=== PATIENT | female | born 1965 | race Caucasian/White ===

== ENCOUNTER 2018-05-25 05:40 | Day surgery (SDC) | payer BC, SELFPAY ==
[2018-05-17 08:56] VITALS: BP 115/80; PULSE 71; RESP 17; TEMP 36.8; O2SAT 98; BMI 40.7
--- NOTE | 2018-05-17 09:15 | SDCEKG_ITS ---
Test Reason : Blood Pressure : / mmHG Vent. Rate : 069 BPM Atrial Rate : 069 BPM P-R Int : 178 ms QRS Dur : 080 ms QT Int : 380 ms P-R-T Axes : 002 -06 014 degrees QTc Int : 407 ms Normal sinus rhythm Normal ECG Confirmed by MATT RODRIGUEZ MD ([id number]), editor dictionary ADI OCHOA ([id number]) on 05/22/2018 2:24:11 PM Referred By: Wesley Valdez Confirmed By:MATT RODRIGUEZ MD
[2018-05-17 09:47] LABS: Hematocrit 42.5 % (37-47); Mean Corp Hgb Conc 32.9 g/gl (32-36); Mean Corpuscular Hgb 29.9 pg (27.0-32.0); Mean Corpuscular Volume 90.6 fL (81-99); Mean Platelet Vol. 10.4 fl (6.2-12.0); Platelet Count 171 K/mm3 (150-450); RBC Distribution Width CV 12.6 % (11.6-14.6); RBC Distribution Width SD 41.7 fl (35.1-43.9); Red Blood Count 4.69 M/mm3 (4.2-5.4); White Blood Count 5.5 K/mm3 (4.4-11.0)
[2018-05-17 09:51] LABS: Scan Indicated on CBC? Y/N NO
[2018-05-17 10:08] LABS: Anion Gap 8 (5-15); BUN 14 mg/dL (7-18); BUN/Creat Ratio 16.9 RATIO (10-20); Calcium,Total 8.5 mg/dL (8.5-10.1); Chloride 105 mmol/L (98-107); Creatinine, Serum 0.83 mg/dL (0.55-1.02); EST Glomerular Filtration Rate 77 mL/min (>60); Est Glom Filt Rate - Afr Amer 93 mL/min (>60); Estimated Creatinine Clearance 85.74 ml/min; Glucose 102 mg/dL (74-106); Potassium 3.9 mmol/L (3.5-5.1); Sodium Level 139 mmol/L (136-145)
--- NOTE | 2018-05-23 12:43 | PCM.HP.STD ---
Problem List (1) Chronic venous insufficiency Status: Chronic (2) Varicose veins with inflammation Status: Chronic (3) Leg pain Status: Chronic Qualifiers: Laterality: left Qualified Code(s): M79.605 - Pain in left leg (4) Leg swelling Status: Chronic History of Present Illness Date of Admission: 05/25/18 Chief Complaint: Chronic venous insufficiency, varicose veins with inflammation, leg pain, leg swelling?left lower extremity The patient is a 52 year old F with a long-standing history of chronic venous insufficiency, varicose veins with inflammation, leg pain, and leg swelling involving her left lower extremity. For approximately 20 years, the patient has experienced pain, discomfort, soreness, and aching in her left lower extremity. Her symptoms have become progressively worse. Venous duplex examination has been performed, revealing incompetence of the left great saphenous vein, the left small saphenous vein, and the left accessory saphenous vein at the S2 position. The implications of this diagnosis were discussed with the patient in detail. The options of management were fully explained. Conservative treatment measures were implemented, which included leg elevation, avoidance of idle standing and sitting, graduated compression stockings, weight control measures, active lifestyle, rphl-cyx-ooyxsor analgesics, etc. Despite these measures, the patient remained symptomatic, with symptoms which adversely affect her daily activities, quality of life, and job functions. [] Past Medical History Past Medical History (Chronic Problems): Chronic Problems Chronic venous insufficiency (Chronic) Varicose veins with inflammation (Chronic) Leg pain (Chronic) Leg swelling (Chronic) Allergies No Known Allergies Allergy (Verified 05/17/18 08:54) Home Medications: Ambulatory Orders Medication Instructions Recorded Famotidine/Ca Carb/Mag Hydrox 1 each PO PRN PRN 05/17/18 [Pepcid Complete Tablet Chew] Levothyroxine [Synthroid] 100 mcg PO DAILY 05/17/18 Surgical History: - - Open reduction and internal fixation of a right ankle fracture in 1985 Psychiatric History: No pertinent psych hx [employer] History: - - The patient is a [id number] Smoking Status: Former smoker Alcohol: Occasional Drugs: None Review of Systems Constitutional: Denies: Chills, Fever, Weight Change HEENT: Denies: Head Aches, Sinus Congestion, Sinus Drainage Cardiovascular: Denies: Chest Pain, Palpitations Respiratory: Denies: Cough, Shortness of breath at rest, Sputum production Gastrointestinal: Denies: Abdominal Pain, Nausea, Vomiting Genitourinary: Denies: Dysuria Musculoskeletal: Denies: Joint Pain, Joint Tenderness Skin: Denies: Rash, Wounds Neurological: Denies: Numbness, Tingling, Focal weakness Psychiatric: Denies: Anxiety, Depression, Homicidal Ideations, Suicidal Ideations Hematologic/ Lymphatic: Denies: Easy Bruising, Easy Bleeding VTE Information - Inpt Only VTE Present on Admission: No VTE Mechan Device Prophylaxis: SCD's - Right VTE Pharm Prophylaxis ordered?: Yes - Physical Exam General: Alert, Oriented x3, Cooperative, No apparent distress, Well developed, Well nourished HEENT: Atraumatic, PERRLA, EOMI, Normocephalic Oral: Moist Mucosa, No Gingival or Mucosal Lesions/ Ulcerations Neck: Supple, No JVD, Negative Carotid Bruits, No Nodes, No Nuchal Rigidity, Trachea Midline Lungs: Clear to auscultation, Normal air movement, No rhonchi, No wheeze, No rales Cardiovascular: Regular rate, Regular Rhythm, Normal S1, Normal S2, No murmurs Abdomen: Bowel Sounds Present, Soft, Non Tender Extremities: No clubbing, No cyanosis, No edema, Capillary Refill Less than 3 Seconds, No Calf Tenderness, - - Peripheral extremities are warm and well perfused. Multiple large varicosities are noted on the left medial calf. Skin: No rashes, No breakdown Musculoskeletal: No Tenderness to Palpation of Joints or Extremities, No Muscle Wasting Neurological: Cranial nerves II-XII grossly intact, Neuro grossly intact Psych/Mental Status: Normal Affect, Appropriate, Alert and oriented to time, place, person, mood and affect Vital Signs Temp Pulse Resp BP Pulse Ox 98.3 F 71 17 115/80 98 05/17/18 08:56 05/17/18 08:56 05/17/18 08:56 05/17/18 08:56 05/17/18 08:56 Oxygen Delivery Method Room Air Weight: 283 lb 11.759 oz Body Mass Index (BMI) 40.7 Assessment/Plan Impression: This is a 52-year-old female with a long-standing history of chronic venous insufficiency, varicose veins with inflammation, leg pain, and leg swelling involving her left lower extremity. Despite the implementation of conservative treatment measures, the patient has remained symptomatic, with symptoms which have adversely affected her daily activities, quality of life, and job functions. The indications and risks of endovenous laser ablation of the left great saphenous vein, the left small saphenous vein, and the left accessory saphenous vein at the S2 position have been discussed with the patient in detail. Plan: The patient is to be admitted for the purpose of elective endovenous laser ablation of the left great saphenous vein, the left small saphenous vein, and the left accessory saphenous vein at the S2 position. The indications and risks of the procedure have been discussed with patient in detail. The appropriate preprocedure consent process has been undertaken.
[2018-05-25] VITALS (7 sets, daily range): BP systolic 118–148; BP diastolic 68–86; PULSE 62–88; RESP 14–18; TEMP 35.7–36.4; O2SAT 92–100; BMI 40.7
[2018-05-25] MEDS: Enoxaparin 30 MG/0.3 ML Syringe SC (06:11)
[2018-05-25] MEDS: Cefazolin 2 GM in 0.9% Normal Saline 100 ML IV (07:26)
--- NOTE | 2018-05-25 10:00 | PCM.DCVENO ---
Discharge Diet: No Restrictions Discharge Activity: May Not Drive Return to work on:: 05/30/18 May shower in (days): 2 Weight Bearing Status: Weight bearing as tolerated Lifting Restrictions: 10 pounds Keep extremity elevated above heart level: Left Leg Call your doctor if you observe: Shortness of breath, Fainting spells, Chest pain, Prolonged hiccoughing, Increased palpitations (irregular heartbeat), Uncontrolled pain Suture Line Care: Avoid Pulling/Pushing Change Dressing in (Days):: 2 Remove Dressing in (days):: 2 - then rewrap daily from base of toes to upper thigh Allergies/Adverse Reactions: Allergies No Known Allergies Allergy (Verified 05/17/18 08:54) Medications to take at Discharge Famotidine/Ca Carb/Mag Hydrox [Pepcid Complete Tablet Chew] 1 each PO PRN PRN 05/17/18 Levothyroxine [Synthroid] 100 mcg PO DAILY 05/17/18 Primary Care Physician: Connor Cueva MD [Primary Care Provider] - Test Results: Test results from this visit will be discussed in further detail at your follow-up appointment, if applicable. Please Follow Up With: Wesley Valdez MD When: 7-14 days
--- NOTE | 2018-05-25 10:03 | DCINST_ITS ---
Discharge Diet: No Restrictions Discharge Activity: May Not Drive Return to work on:: 05/30/18 May shower in (days): 2 Weight Bearing Status: Weight bearing as tolerated Lifting Restrictions: 10 pounds Keep extremity elevated above heart level: Left Leg Call your doctor if you observe: Shortness of breath, Fainting spells, Chest pain, Prolonged hiccoughing, Increased palpitations (irregular heartbeat), Uncontrolled pain Suture Line Care: Avoid Pulling/Pushing Change Dressing in (Days):: 2 Remove Dressing in (days):: 2 - then rewrap daily from base of toes to upper thigh Allergies/Adverse Reactions: Allergies No Known Allergies Allergy (Verified 05/17/18 08:54) Medications to take at Discharge Famotidine/Ca Carb/Mag Hydrox [Pepcid Complete Tablet Chew] 1 each PO PRN PRN 05/17/18 Levothyroxine [Synthroid] 100 mcg PO DAILY 05/17/18 Primary Care Physician: Connor Cueva MD [Primary Care Provider] - Test Results: Test results from this visit will be discussed in further detail at your follow- up appointment, if applicable. Please Follow Up With: Wesley Valdez MD When: 7-14 days
--- NOTE | 2018-05-25 10:03 | PCM.IMDPSTOP ---
Problem List (1) Chronic venous insufficiency Status: Chronic (2) Varicose veins with inflammation Status: Chronic (3) Leg pain Status: Chronic Qualifiers: Laterality: left Qualified Code(s): M79.605 - Pain in left leg (4) Leg swelling Status: Chronic Immediate Post-Op Note Date of Procedure: 05/25/18 Primary Surgeon/Physician: Wesley Valdez carbide tool maker: None Pre-Operative Diagnosis: Chronic venous insufficiency, Varicose veins with inflammation, Leg pain, Leg swelling - Left lower extremity Post-Operative Diagnosis: Chronic venous insufficiency, Varicose veins with inflammation, Leg pain, Leg swelling - Left lower extremity Surgery/Procedure Performed:: 1. EVLA of left great saphenous vein. 2. EVLA of left small saphenous vein. 3. EVLA of left accessory saphenous vein (S2) Description of Surgical Findings:: As above Estimated Blood Loss: Minimal Specimen's removed: None Drains: None Type of Anesthesia:: General, Tumescent - Admit VTE Documentation VTE Present on Admission: No VTE Mechan Device Prophylaxis: SCD's - Right VTE Pharm Prophylaxis ordered?: Yes
--- NOTE | 2018-05-25 10:08 | OP.PN_ITS ---
Problem List (1) Chronic venous insufficiency Status: Chronic (2) Varicose veins with inflammation Status: Chronic (3) Leg pain Status: Chronic Qualifiers: Laterality: left Qualified Code(s): M79.605 - Pain in left leg (4) Leg swelling Status: Chronic Immediate Post-Op Note Date of Procedure: 05/25/18 Primary Surgeon/Physician: Wesley Valdez label remover: None Pre-Operative Diagnosis: Chronic venous insufficiency, Varicose veins with inflammation, Leg pain, Leg swelling - Left lower extremity Post-Operative Diagnosis: Chronic venous insufficiency, Varicose veins with inflammation, Leg pain, Leg swelling - Left lower extremity Surgery/Procedure Performed:: 1. EVLA of left great saphenous vein. 2. EVLA of left small saphenous vein. 3. EVLA of left accessory saphenous vein (S2) Description of Surgical Findings:: As above Estimated Blood Loss: Minimal Specimen's removed: None Drains: None Type of Anesthesia:: General, Tumescent - Admit VTE Documentation VTE Present on Admission: No VTE Mechan Device Prophylaxis: SCD's - Right VTE Pharm Prophylaxis ordered?: Yes
--- NOTE | 2018-05-29 08:10 | PCM.OPRPT ---
Problem List (1) Chronic venous insufficiency Status: Chronic (2) Varicose veins with inflammation Status: Chronic (3) Leg pain Status: Chronic Qualifiers: Laterality: left Qualified Code(s): M79.605 - Pain in left leg (4) Leg swelling Status: Chronic Report of Operation Date of Procedure: 05/25/18 Pre-Operative Diagnosis: Chronic venous insufficiency, Varicose veins with inflammation, Leg pain, Leg swelling - Left lower extremity Post-Operative Diagnosis: Chronic venous insufficiency, Varicose veins with inflammation, Leg pain, Leg swelling - Left lower extremity Surgery/Procedure Performed:: 1. EVLA of left great saphenous vein. 2. EVLA of left small saphenous vein. 3. EVLA of left accessory saphenous vein (S2) Description of Surgical Findings:: As above carbide tool die maker: None Type of Anesthesia:: General, Tumescent Specimen's removed: None Drains: None Estimated Blood Loss (mL): Minimal Description of Procedure: The patient underwent ultrasound marking of the left great saphenous vein, the left small saphenous vein, and the left accessory saphenous vein at the S2 position. She was then brought to the operating room suite, placed supine upon the operating table, where general anesthesia was administered by the anesthesia staff. The patient's left lower extremity and left groin were prepped and draped in the appropriate sterile manner. The patient was placed in reverse Trendelenburg position. Ultrasonography was used to image the left great saphenous vein in the distal calf. The micropuncture technique was used to access the left great saphenous vein percutaneously in the distal calf. In this manner, a 0.018 inch guidewire was advanced intraluminally into the left great saphenous vein, and was visualized by ultrasonography. A micropuncture sheath was advanced over the guidewire. The 0.018 inch guidewire was exchanged for a 0.035 inch guidewire, which was then advanced intraluminally to a level just distal to the left sapheno?femoral junction, as confirmed by ultrasound imaging. A long 4 Nigerian sheath was then advanced over the guidewire, and its tip was positioned approximately 2-2-1/2 cm distal to the left sapheno?femoral junction. Attention was then directed to the incompetent left small saphenous vein. To enhance exposure, the left lower extremity was placed in an externally rotated position with the left knee flexed. Using ultrasound imaging and the micropuncture technique, the micropuncture sheath was introduced intraluminally into the left small saphenous vein near the inferior border of the left gastrocnemius muscle, and was left in place, capped, for subsequent access purposes. Attention was then directed to the incompetent left accessory saphenous vein at the S2 position. Using ultrasound imaging and the micropuncture technique, a micropuncture sheath was introduced intraluminally, and was left in place, capped, for subsequent access purposes. Attention was then redirected to the long 4 Nigerian sheath which had been previously placed intraluminally within the left great saphenous vein. Perivenous tumescent anesthesia was injected from the 4 Nigerian sheath exit site up to the left sapheno?femoral junction. This was performed segmentally using ultrasound imaging. The AngioDynamics laser fiber was then introduced into the 4 Nigerian sheath, and coupled appropriately. Ultrasonography was used to confirm that the tip of the laser fiber was positioned within the left great saphenous vein approximately 2-2-1/2 cm distal to the left sapheno?femoral junction. The patient was placed in Trendelenburg position and the laser fiber was activated. The AngioDynamics laser was slowly withdrawn at a constant rate throughout the length of the left great saphenous vein, thereby ablating left great saphenous vein segmentally. The energy applied was approximately 60-80 J/cm. Following the laser ablation, the laser fiber and sheath were removed, and manual pressure was briefly applied to the percutaneous access site to achieve hemostasis. Attention was then directed to the micropuncture sheath which had been previously placed intraluminally within the left small saphenous vein. A 0.035 inch guidewire was introduced intraluminally and its tip was positioned within the proximal portion of the left small saphenous vein. The long 4 Nigerian sheath was then advanced over the guidewire and into position intraluminally within the left small saphenous vein. Perivenous tumescent anesthesia was injected from the 4 Nigerian sheath access site up to the tip of the sheath in the proximal left small saphenous vein. This was performed segmentally using ultrasound imaging. The AngioDynamics laser fiber was then introduced into the 4 Nigerian sheath, and coupled appropriately. Ultrasonography was used to confirm that the tip of the laser fiber was positioned within the proximal left small saphenous vein, several centimeters distal to its junction with the deep venous system, and remaining within the superficial portion of the left small saphenous vein. The patient was placed in Trendelenburg position and the laser fiber was activated. The AngioDynamics laser was slowly withdrawn at a constant rate throughout the length of the left small saphenous vein, thereby ablating left small saphenous vein segmentally. The energy applied was approximately 60-80 J/cm. Following the laser ablation, the laser fiber and sheath were removed, and manual pressure was briefly applied to the percutaneous access site to achieve hemostasis. Attention was then directed to the micropuncture sheath which had been previously placed intraluminally within the incompetent left accessory saphenous vein. A 0.035 inch guidewire was introduced intraluminally, over which the long 4 Nigerian sheath was advanced and positioned intraluminally. Perivenous tumescent anesthesia was injected from the 4 Nigerian sheath exit site up to the tip of the sheath within the proximal left accessory saphenous vein. This was performed segmentally using ultrasound imaging. The AngioDynamics laser fiber was then introduced into the 4 Nigerian sheath and coupled appropriately. Ultrasonography was used to confirm that the tip of the laser fiber was positioned within the left accessory saphenous vein with its tip abutting the previously ablated left great saphenous vein. The patient was placed in Trendelenburg position and the laser fiber was activated. The AngioDynamics laser was slowly withdrawn at a constant rate throughout the length of the left accessory saphenous vein, thereby ablating the left accessory saphenous vein segmentally. The energy applied was approximately 60-80 J/cm. Following the laser ablation, the laser fiber and sheath were removed, and manual pressure was briefly applied to the percutaneous access site to achieve hemostasis. After assuring satisfactory hemostasis, the access sites were approximated using Cavilon and Steri-Strips. Dry sterile gauze dressings were applied over each of the access sites, and the leg was wrapped from the base of the toes to the upper thigh with Kerlix, followed by Alex wrap. The blood loss for the procedure was minimal. The sponge, needle, and instrument counts at the end of the procedure were correct. The patient tolerated the procedure well, and was transported from the operating room to the post-anesthesia care unit in stable condition. The amount of tumescent anesthesia utilized, number of joules applied, and treatment times were recorded separately. Additionally, because of the patient's obesity, and the large size of her lower extremity veins, slightly enhanced laser energy was utilized in ablating the 3 veins of the left lower extremity. - Complications None - Admit VTE Documentation VTE Present on Admission: No VTE Mechan Device Prophylaxis: SCD's - Right VTE Pharm Prophylaxis ordered?: Yes
--- OUTSIDE RECORDS SUMMARY | 2018-07-11 00:12 | XMS RPT_ITS | Clinical Summary ---
:1965 Author Organization [facility], [facility] Address [address] [place] [id number] Phone Care Team Providers Name Role Phone Connor Cueva MD Unavailable Conditions or Problems Problem Name Problem Onset Status Entry Provider Comment Standard Annotate Code Date Date Description Intertrigo, 690333245 Active Connor Candidal candidal (SNOMED 07/02 07/[address]) Hypothyroidism [id number] Active Connor Hypothyroidism (SNOMED 07/02 07/[address]) Medications Medication Instructions Start Stop Generic Name [facility] Provider Date Date LEVOTHYROXINE One tablet by / LEVOTHYROXINE 30289044853 Connor Rendon SODIUM 100 MCG mouth daily 20 SODIUM Hammad KENNY TABS CLOTRIMAZOLE-BET apply sparingly / CLOTRIMAZOLE-BET [id number] Connor Rendon AMETHASONE to affected 20 AMETHASONE Hammad KENNY 1-0.05 % CREA area twice a day, as needed Medications Administered No information available. Allergies, Adverse Reactions, Alerts Observed No Known Drug Allergies at Results Date Name Value Unit Range Flag Description Office Visit: New Pt. Visit MEDS REVIEW Done Documentation of current medications (procedure) FALLRSKASSES No Fall risk assessment SMOK STATUS Former smoker Tobacco use [facility] Plan of Care Type Date Detail Pending order Follow Up as needed Pending order Follow Up Appt 1 year Procedures No information available. Vital Signs Date Name Value Unit Description BMI (Body Mass Index) 0.61 kg/m2 Body Mass Index [Ratio] Body Temperature 97.8 [degF] temperature E&M BP Diastolic 82 mm[Hg] blood pressure, diastolic - 8462-4 BP Systolic 128 mm[Hg] blood pressure, systolic - 8480-6 Heart Rate 74 /min pulse rate E&M - 8867-4 Height 284 [in_us] height E&M - 8302-2 Respiratory Rate 16 /min respiratory rate E&M - 9279-1 Weight Measured 70 [lb_av] weight E&M - 3141-9
--- OUTSIDE RECORDS SUMMARY | 2018-07-11 00:12 | XMS RPT_ITS | Clinical Summary ---
:1965 Author Organization [facility], [facility] Address [address] [place] [id number] Phone Care Team Providers Name Role Phone Connor Cueva MD Unavailable Conditions or Problems Problem Name Problem Onset Status Entry Provider Comment Standard Annotate Code Date Date Description Intertrigo, 744862188 Active Connor Candidal candidal (SNOMED 07/02 07/[address]) Hypothyroidism 40827314 Active Connor Hypothyroidism (SNOMED 07/02 07/[address]) Medications Medication Instructions Start Stop Generic Name [facility] Provider Date Date LEVOTHYROXINE One tablet by / LEVOTHYROXINE [id number] Connor Rendon SODIUM 100 MCG mouth daily 20 SODIUM Hammad KENNY TABS CLOTRIMAZOLE-BET apply sparingly / CLOTRIMAZOLE-BET [id number] Connor Rendon AMETHASONE to affected 20 AMETHASONE [...] assessment SMOK STATUS Former smoker Tobacco use [facility] Plan of Care Type Date Detail [...]
--- OUTSIDE RECORDS SUMMARY | 2018-07-11 00:12 | XMS RPT_ITS ---
:1965 Author Organization OHIP Support Name Relationship Address Phone MARTIN BETO Unavailable [address] + [place] [address] POSTEN, SALVATORE Unavailable [address] + [place] [address] WOOBR Unavailable [address] + [address] [place] [address] BETO SALAZAR Unavailable [address] + [place] [address] POSTEN, SALVATORE Unavailable [address] + [place] [address] WOOBR Unavailable [address] + [address] [place] [address] BETO SALAZAR Unavailable [address] + [place] [address] POSTEN, SALVATORE Unavailable [address] + [place] [address] WOOBR Unavailable [address] + [address] [place] [address] BETO SALAZAR Unavailable [address] + [place] [address] POSTEN, SALVATORE Unavailable [address] + [place] [address] WOOBR Unavailable [address] + [address] [place] [address] BETO SALAZAR Unavailable [address] + [place] [address] POSTEN, SALVATORE Unavailable [address] + [place] [address] WOOBR Unavailable [address] [place] [address] Care Team Providers Name Role Phone KevinmiguelJerad Attending Unavailable Oleghe, Efewongbe Primary Care Unavailable Sarthak Rodriguez Attending Unavailable Wesley Valdez Referring Unavailable BañuelosJorge EXHAUST WORKER-C Attending Unavailable Oleadame, Efewongbe Referring Unavailable Bañuelos, Jorge EXHAUST WORKER-C Attending Unavailable Bañuelos, Jorge EXHAUST WORKER-C Referring Unavailable Oleghe, Efewongbe Primary Care Unavailable Wesley Valdez Attending Unavailable Wesley Valdez Referring Unavailable Oleghe, Efewongbe Primary Care Unavailable PROBLEMS PROBLEMS DATE TYPE CONDITION / CODE ATTENDING STATUS SOURCE 06/07/2018 Unknown E03.9 - Bañuelos, Jorge Active [place] Hypothyroidism, EXHAUST WORKER-C Community unspecified / Hospital E03.9(ICD-10) Repository 06/07/2018 Unknown R31.9 - Hematuria, Bañuelos, Jorge Active [place] unspecified / EXHAUST WORKER-C Community R31.9(ICD-10) Hospital Repository 06/07/2018 Unknown R40.0 - Somnolence / Bañuelos, Jorge Active [place] R40.0(ICD-10) [facility] Hospital Repository 06/07/2018 Unknown R06.83 - Snoring / Bañuelos, Jorge Active [place] R06.83(ICD-10) [facility] WORK[facility] Hospital Repository 06/07/2018 Unknown E78.5 - Bañuelos, Jorge Active [place] Hyperlipidemia, EXHAUST WORKER-C Community unspecified / Hospital E78.5(ICD-10) Repository 06/07/2018 Unknown Z00.00 - Encounter Jorge Bañuelos Active [place] for general adult EXHAUST WORKER-C [facility] medical examination Hospital without abnormal Repository findings / Z00.00(ICD-10) 05/26/2018 Unknown Z01.810 - Encounter EstherHolland beasleyril Active [place] for [facility]cedural [facility] cardiovascular Hospital examination / Repository Z01.810(ICD-10) PROCEDURES PROCEDURES No Procedure Records FoundRESULTS RESULTS URINALYSIS, COMPLETE Collected: 06/07/2018 Status: F Source: [place] 12:42 PM [facility] REPOSITORY Order Comment: How was Urine Obtained? WRECKER DRIVER TO SPECIFY TYPE CODE TESTS RESULT OUT OF RANGE REFERENCE UNITS LAB L400.3000 Yellow COLOR Normal Yellow LAB L400.3050 Clear Normal CLARITY Clear LAB L400.3200 Normal mg/dl Normal GLUCOSE, UR Normal LAB L400.3300 Negative mg/dL Normal BILIRUBIN URINE Negative LAB L400.3400 Negative mg/dl Normal KETONE UR Negative LAB L400.3465 1.002-1.030 Normal SP.GR. DIPSTX 1.015 LAB L400.3550 5.0 - 8.0 pH UR Normal 6.0 LAB L400.3600 Negative mg/dl PROT Normal DIPSTX Negative LAB L400.3700 Normal mg/dl Normal UROBILI Normal LAB L400.3750 Negative Normal NITRITE UR Negative LAB L400.3780 Negative /ul Normal OCCULT BLOOD-UR Negative LAB L400.3800 Negative /ul LEUK Normal ESTERASE Negative LAB L400.4050 0-5 /hpf WBC 0 Normal SEEN LAB L400.4100 0-5 /hpf 0 Normal RBC-UA SEEN LAB L400.4150 5-10 /hpf SQUAM Normal EPI 0-5 SEEN LAB L400.4300 None Seen /hpf 0 Normal BACTERIA SEEN LAB L400.4350 <or=2+ /hpf 0 Normal MUCUS, URINE SEEN Performed By: #### L400.0001 #### [facility] [address] [place], [address] Observed: 06/07/2018 Status: F Source: [place] CULTURE, URINE 12:42 PM [facility] REPOSITORY Urine Culture Below infection level. ORGANISM 1: Mixed Gram Positive Organisms [place] Count 1000-10,000 MIX CULTURE Mixed contaminants. Submit a new specimen if indicated. Performed By: #### M100.0650 #### [facility] [address] [place], [address] INTERNAL MEDICINE Observed: 06/07/2018 Status: F Source: [place] OFFICE VISIT 11:26 AM [facility] REPOSITORY [facility] [address] [place] [address] [place] [address] OFFICE VISIT Date of Service: 06/07/18 MR#: [id number] Acct: [id number] Name: CONNER LIM Rep #: [id number] : 1965 Provider: Jorge Bañuelos NP Age/Sex: 52/F Location: [facility] Status: Signed Intake Vital Signs06/07/18 Body Mass Index (BMI) 40.7 06/07/18 Height 5 ft 10 in 06/07/18 Weight: 280 lb 06/07/18 Body Mass Index (BMI) 40.1 06/07/18 Blood Pressure 108/70 Intake Visit Reasons: 1 Y FU Chief Complaint: 1 Year FU Allergies No Known Allergies Allergy (Verified 06/07/18 10:30) Medications Famotidine/Ca Carb/Mag Hydrox [Pepcid Complete Tablet Chew] 1 ea PO PRN PRN 05/17/18 [History Confirmed 06/07/18] clotrimazole 1 %-betamethasone 0.05 % cream-zinc ox 20 % paste topical pkg TOPICAL g 06/07/18 [History Confirmed 06/07/18] levothyroxine 100 mcg tablet 100 mcg PO DAILY #90 tab 06/07/18 [Rx Confirmed 06/07/18] PFSH Medical History Hypothyroid (Acute) Surgical History History of vascular surgery (Acute) Family History Father Heart disease Skin cancer Grandfather CVA (cerebral vascular accident) Grandmother Cancer Social History Smoking Status: Former smoker how long ago did patient quit smokin alcohol intake: current alcohol intake frequency: holidays/special occasions only Alcohol type: beer substance use type: does not use what type of physical activity do you participate in: none HPI HPI Chief Complaint: 1 Year FU Details: CONNER LIM, is a 52 F who presents to the office today for her annual physical, however she has some acute complaints as well. She has a past medical history as listed above. Patient states that overall she has been doing well. She states that she recently had sclerotherapy on her left lower extremity and that is currently in compression. She does have an acute complaint of excessive daytime somnolence and notes that over the last 3 days she has noticed some blood in her urine and wonders if she may have a UTI. She denies any postmenopausal vaginal bleeding. She denies any other signs of UTI at this time. She does note regarding her hypothyroidism, she is out of her medication for a couple months and just resumed her levothyroxine 1 week ago. She denies any use of tobacco or heavy use of alcohol. She does state that she will make a appointment with her CLINICAL INFORMATICIST for her Pap. Denies any other acute concerns. The patient otherwise denies any fever, chills, nausea, vomiting, shortness of breath, chest pain or pressure, palpitations, orthopnea, worsening lower extremity edema, syncope or presyncopal episodes. STOP-BANG Assessment: 1. Do you snore? y 2. Are you frequently tired during the day? y 3. Have you been observed gasping or choking while asleep? y 4. Do you have high blood pressure? n 5. BMI - greater than 35kg/m2? y 6. Age - over 50 years old? y 7. Neck Circumference - greater than 37 cm for females or 40 cm for males? y, 41 cm 8. Gender - male? n Total STOP-BANG score = 6 which indicates high risk for obstructive sleep apnea (yes to 3 or more questions = high risk of sleep apnea). ROS Const Constitutional: No chills, fatigue, fever(s), frequent falls, malaise, weakness, sleep problems or change in appetite Eyes Eyes: No blurry vision, change in vision, double vision, discharge or visual disturbances ENT ENT: No abnormal hearing, ear pain, ear pressure, tinnitus or dizziness/vertigo Resp Respiratory: No cough, shortness of breath or wheezing Cardio Cardiology: No chest pain at rest, chest pain with exertion, shortness of breath, dyspnea on exertion, generalized swelling, irregular heart rhythm, lightheadedness, orthopnea, fast heart rate or palpitations Gastro GI: No abdominal pain, change in bowel habits, constipation, diarrhea, nausea/dyspepsia or vomiting Genitourinary-Female: No difficulty urinating, burning urination, painful urination, urinary incontinence, urinary frequency, urinary urgency, urinary hesitancy, urinary retention, Frequent nighttime urination/ nocturia, sexual problems, genital lesions, abnormal vaginal bleeding, pelvic pain, vaginal dryness, vaginal odor or Vaginal Itching Musc Musculoskeletal: No joint pain, back pain, joint swelling, limited range of motion, numbness, tingling or muscle weakness Skin Skin: No change in skin color, itching, rash or wounds Breast Breast: No breast lump or breast pain Neuro Neurology: No frequent falls, weakness, visual disturbances, abnormal hearing, numbness, tingling, unsteady gait/balance, dizziness, loss of vision or memory loss Psych Psychiatric: No change in appetite, No memory loss, No anxiety, No depression, No Thoughts of harming yourself/Others Endo Endocrine: No fatigue, heat intolerance, increased thirst/drinking, increased hunger or increased urination Aller/Imm Allergy/Immunologic: No wheezing, itchy eyes or seasonal allergy symptoms Helio/Lymp Hematologic/Lymphatic: No easy bleeding, easy bruising or enlarged lymph nodes Exam Const General: cooperative, comfortable, no acute distress Nutritional Appearance: well nourished, obese Orientation: alert, oriented x3 Limitations: mental status not altered [facility] Head: normal to inspection Ears: hearing grossly normal bilaterally Nose: external nose normal Face and sinus: normal facial exam Mouth: oral mucosae normal Throat: posterior oropharynx normal, other (mallampati 3) Neck Neck: no lymphadenopathy, normal visual inspection, other (41 cm) Resp Effort AND Inspection: normal respiratory effort, able to speak in complete sentences, normal respiratory pattern, symmetric chest movement, no audible wheezes, no cough Auscultation: Bilateral: Clear to Auscultation Cardio Palpation: normal PMI Rate: regular rate Heart Sounds: S1 normal, S2 normal, normal S1 and S2, no click, no gallops, no murmurs, no rubs GI Inspection: normal to inspection Auscultation: normal bowel sounds, no hyperactive bowel sounds, no hypoactive bowel sounds Palpation: soft, no hepatosplenomegaly General: No CVA tenderness Musc Musculoskeletal: No joint tenderness, decreased ROM or muscle weakness Skin General: no rashes or lesions noted, elasticity normal, turgor normal Lesions: no lesions Rashes: no rashes Neuro General: alert, awake, oriented x3, CN's II-XI intact bilaterally Speech: speech normal Gait: normal gait Motor: muscle tone normal throughout Extrem General: normal to inspection, normal gait Other: left lower extremity in compression wrapping Psych Appearance: grossly normal Mental Status: mental status grossly normal Affect: normal affect Attitude: cooperative Thought Process: normal Assessment AND Plan 1. Encounter for preventative adult health care examination Z00.00 Plan Patient refuses influenza vaccine and shingles vaccine, she will follow-up with CLINICAL INFORMATICIST for her Pap. Mammogram ordered, patient to continue with diet exercise and avoidance of heavy alcohol use or tobacco abuse. We will recheck a lipid profile, baseline blood work recently done and within normal limits. Patient up-to-date on colonoscopy and per patient her next one is do in 2020 2. Hypothyroidism E03.9 Plan Patient has been off of her thyroid supplementation for approximately 3 months now and restarted 1 week ago, will recheck TSH and T4 after 6 weeks of treatment and then make adjustments if necessary. She has been more tired lately, may be due to her thyroid or due to undiagnosed AJ. Orders Orders: 3. Hematuria R31.9 Plan Patient does state that she has noted some blood in her urine over the last 3 days, denies any postmenopausal bleeding otherwise. Will check a UA and culture. Denies any other signs of UTI symptoms at this time. Denies any concern for STDs. Orders Orders: 4. Daytime somnolence R40.0 Plan Patient does have many symptoms that may be related to obstructive sleep apnea, her neck circumference is 41 cm and she snores and has been visualized gasping for air in her sleep before. Sleep study ordered. Patient to follow-up in 6 weeks or sooner if needed Orders Orders: Plan Detail Other Orders Orders: Other Medications New: Refilled: Follow Up 6 weeks or sooner if needed Coding Level of Care Code Off vis,est,prev 40-64yrs Diagnoses Encounter for preventative adult health care examination Z00.00 Hypothyroidism E03.9 Hematuria R31.9 Daytime somnolence R40.0 06/07/18 1126 <Electronically signed by Jorge STARKS> Date Jorge STARKS Cosigner Signature: Date (if applicable) CC: OPERATIVE REPORT Observed: 05/29/2018 Status: F Source: [place] 8:28 AM [facility] REPOSITORY [facility] Medical Records Department [address] [place] [address] Operative Report 05/29/18 0810 MR#: [id number] Acct: [id number] Name: CONNER LIM Rep #: [id number] : 1965 52 From: Wesley Valdez MD PCP: Connor Cueva MD Status: DEP [facility] Y Location: [facility] Problem List (1) Chronic venous insufficiency Status: Chronic (2) Varicose veins with inflammation Status: Chronic (3) Leg pain Status: Chronic Qualifiers: Laterality: left Qualified Code(s): M79.605 - Pain in left leg (4) Leg swelling Status: Chronic Report of Operation Date of Procedure: 05/25/18 Pre-Operative Diagnosis: Chronic venous insufficiency, Varicose veins with inflammation, Leg pain, Leg swelling - Left lower extremity Post-Operative Diagnosis: Chronic venous insufficiency, Varicose veins with inflammation, Leg pain, Leg swelling - Left lower extremity Surgery/Procedure Performed:: 1. EVLA of left great saphenous vein. 2. EVLA of left small saphenous vein. 3. EVLA of left accessory saphenous vein (S2) Description of Surgical Findings:: As above third hand: None Type of Anesthesia:: General, Tumescent Specimen's removed: None Drains: None Estimated Blood Loss (mL): Minimal Description of Procedure: The patient underwent ultrasound marking of the left great saphenous vein, the left small saphenous vein, and the left accessory saphenous vein at the S2 position. She was then brought to the operating room suite, placed supine upon the operating table, where general anesthesia was administered by the anesthesia staff. The patient's left lower extremity and left groin were prepped and draped in the appropriate sterile manner. The patient was placed in reverse Trendelenburg position. Ultrasonography was used to image the left great saphenous vein in the distal calf. The micropuncture technique was used to access the left great saphenous vein percutaneously in the distal calf. In this manner, a 0.018 inch guidewire was advanced intraluminally into the left great saphenous vein, and was visualized by ultrasonography. A micropuncture sheath was advanced over the guidewire. The 0.018 inch guidewire was exchanged for a 0.035 inch guidewire, which was then advanced intraluminally to a level just distal to the left sapheno femoral junction, as confirmed by ultrasound imaging. A long 4 Hungarian sheath was then advanced over the guidewire, and its tip was positioned approximately 2-2-1/2 cm distal to the left sapheno femoral junction. Attention was then directed to the incompetent left small saphenous vein. To enhance exposure, the left lower extremity was placed in an externally rotated position with the left knee flexed. Using ultrasound imaging and the micropuncture technique, the micropuncture sheath was introduced intraluminally into the left small saphenous vein near the inferior border of the left gastrocnemius muscle, and was left in place, capped, for subsequent access purposes. Attention was then directed to the incompetent left accessory saphenous vein at the S2 position. Using ultrasound imaging and the micropuncture technique, a micropuncture sheath was introduced intraluminally, and was left in place, capped, for subsequent access purposes. Attention was then redirected to the long 4 Hungarian sheath which had been previously placed intraluminally within the left great saphenous vein. Perivenous tumescent anesthesia was injected from the 4 Hungarian sheath exit site up to the left sapheno femoral junction. This was performed segmentally using ultrasound imaging. The AngioDynamics laser fiber was then introduced into the 4 Hungarian sheath, and coupled appropriately. Ultrasonography was used to confirm that the tip of the laser fiber was positioned within the left great saphenous vein approximately 2-2-1/2 cm distal to the left sapheno femoral junction. The patient was placed in Trendelenburg position and the laser fiber was activated. The AngioDynamics laser was slowly withdrawn at a constant rate throughout the length of the left great saphenous vein, thereby ablating left great saphenous vein segmentally. The energy applied was approximately 60-80 J/cm. Following the laser ablation, the laser fiber and sheath were removed, and manual pressure was briefly applied to the percutaneous access site to achieve hemostasis. Attention was then directed to the micropuncture sheath which had been previously placed intraluminally within the left small saphenous vein. A 0.035 inch guidewire was introduced intraluminally and its tip was positioned within the proximal portion of the left small saphenous vein. The long 4 Hungarian sheath was then advanced over the guidewire and into position intraluminally within the left small saphenous vein. Perivenous tumescent anesthesia was injected from the 4 Hungarian sheath access site up to the tip of the sheath in the proximal left small saphenous vein. This was performed segmentally using ultrasound imaging. The AngioDynamics laser fiber was then introduced into the 4 Hungarian sheath, and coupled appropriately. Ultrasonography was used to confirm that the tip of the laser fiber was positioned within the proximal left small saphenous vein, several centimeters distal to its junction with the deep venous system, and remaining within the superficial portion of the left small saphenous vein. The patient was placed in Trendelenburg position and the laser fiber was activated. The AngioDynamics laser was slowly withdrawn at a constant rate throughout the length of the left small saphenous vein, thereby ablating left small saphenous vein segmentally. The energy applied was approximately 60-80 J/cm. Following the laser ablation, the laser fiber and sheath were removed, and manual pressure was briefly applied to the percutaneous access site to achieve hemostasis. Attention was then directed to the micropuncture sheath which had been previously placed intraluminally within the incompetent left accessory saphenous vein. A 0.035 inch guidewire was introduced intraluminally, over which the long 4 Hungarian sheath was advanced and positioned intraluminally. Perivenous tumescent anesthesia was injected from the 4 Hungarian sheath exit site up to the tip of the sheath within the proximal left accessory saphenous vein. This was performed segmentally using ultrasound imaging. The AngioDynamics laser fiber was then introduced into the 4 Hungarian sheath and coupled appropriately. Ultrasonography was used to confirm that the tip of the laser fiber was positioned within the left accessory saphenous vein with its tip abutting the previously ablated left great saphenous vein. The patient was placed in Trendelenburg position and the laser fiber was activated. The AngioDynamics laser was slowly withdrawn at a constant rate throughout the length of the left accessory saphenous vein, thereby ablating the left accessory saphenous vein segmentally. The energy applied was approximately 60-80 J/cm. Following the laser ablation, the laser fiber and sheath were removed, and manual pressure was briefly applied to the percutaneous access site to achieve hemostasis. After assuring satisfactory hemostasis, the access sites were approximated using Cavilon and Steri-Strips. Dry sterile gauze dressings were applied over each of the access sites, and the leg was wrapped from the base of the toes to the upper thigh with Kerlix, followed by Alex wrap. The blood loss for the procedure was minimal. The sponge, needle, and instrument counts at the end of the procedure were correct. The patient tolerated the procedure well, and was transported from the operating room to the post-anesthesia care unit in stable condition. The amount of tumescent anesthesia utilized, number of joules applied, and treatment times were recorded separately. Additionally, because of the patient's obesity, and the large size of her lower extremity veins, slightly enhanced laser energy was utilized in ablating the 3 veins of the left lower extremity. - Complications None - Admit VTE Documentation VTE Present on Admission: No VTE Mechan Device Prophylaxis: SCD's - Right VTE Pharm Prophylaxis ordered?: Yes 05/29/18827 <Electronically signed by Wesley Valdez MD> Date Wesley Valdez MD CC: Connor Cueva MD; Wesley Valdez MD Signed HIV - [facility] Collected: 05/25/2018 Status: F Source: [place] 12:55 PM [facility] REPOSITORY Order Comment: Has pt arrived? Y TYPE CODE TESTS RESULT OUT OF RANGE REFERENCE UNITS LAB L3890.6005 Nonreactive Normal HIV - [facility] Non-Reactive Performed By: #### L3890.6005 #### [facility] [place], [place], [address] HEPATITIS B SURFACE Collected: 05/25/2018 Status: F Source: [place] AG 12:55 PM [facility] REPOSITORY Order Comment: Has pt arrived? Y TYPE CODE TESTS RESULT OUT OF RANGE REFERENCE UNITS LAB L3100.0400 Negative Normal HB Negative SURF AG Performed By: #### L3100.0390, L3100.0460, L3100.0528, L3100.0625 #### [facility] (refer to report for specific site) refer to report for address and phone number HEPATITIS B CORE AB Collected: 05/25/2018 Status: F Source: [place] TOTAL 12:55 PM [facility] REPOSITORY Order Comment: Has pt arrived? Y TYPE CODE TESTS RESULT OUT OF RANGE REFERENCE UNITS LAB L3100.0460 Negative Normal HEP B Negative CORE,TOT Result Comment: Performed at: - [facility] [id number] Hard Candy Spinner: Erick Bustamante PhD, Phone: [phone] Performed By: #### L3100.0390, L3100.0460, L3100.0528, L3100.0625 #### [facility] (refer to report for specific site) refer to report for address and phone number HEP B SURFACE Collected: 05/25/2018 Status: F Source: [place] ANTIBODIES 12:55 PM [facility] REPOSITORY Order Comment: Has pt arrived? Y TYPE CODE TESTS RESULT OUT OF RANGE REFERENCE UNITS LAB L3100.0528 . Normal Hep B Non Reactive [facility] AB Result Comment: Non Reactive: Inconsistent with immunity, less than 10 mIU/mL Reactive: Consistent with immunity, greater than 9.9 mIU/mL Performed By: #### L3100.0390, L3100.0460, L3100.0528, L3100.0625 #### [facility] (refer to report for specific site) refer to report for address and phone number HEPATITIS C ANTIBODIES Collected: 05/25/2018 Status: F Source: [place] 12:55 PM [facility] REPOSITORY Order Comment: Has pt arrived? Y TYPE CODE TESTS RESULT OUT OF RANGE REFERENCE UNITS LAB L3100.0650 0.0-0.9 s/co ratio Normal HEP C AB 0.1 Result Comment: Negative: < 0.8 Indeterminate: 0.8 - 0.9 Positive: > 0.9 The CDC recommends that a positive HCV antibody result be followed up with a HCV Nucleic Acid Amplification test ([id number]). Performed By: #### L3100.0390, L3100.0460, L3100.0528, L3100.0625 #### [facility] (refer to report for specific site) refer to report for address and phone number DISCHARGE INSTRUCTION Observed: 05/25/2018 Status: F Source: [facility] 10:03 AM [facility] REPOSITORY [facility] Medical Records Department [address] [place] [address] Instructions for Home/Discharge Instructions 05/25/18 1000 MR#: [id number] Acct: [id number] Name: CONNER LIM Christin Rep #: [id number] : 1965 52 From: Wesley Valdez MD PCP: Connor Cueva MD Status: REG [facility] Discharge Diet: No Restrictions Discharge Activity: May Not Drive Return to work on:: 05/30/18 May shower in (days): 2 Weight Bearing Status: Weight bearing as tolerated Lifting Restrictions: 10 pounds Keep extremity elevated above heart level: Left Leg Call your doctor if you observe: Shortness of breath, Fainting spells, Chest pain, Prolonged hiccoughing, Increased palpitations (irregular heartbeat), Uncontrolled pain Suture Line Care: Avoid Pulling/Pushing Change Dressing in (Days):: 2 Remove Dressing in (days):: 2 - then rewrap daily from base of toes to upper thigh Allergies/Adverse Reactions: Allergies No Known Allergies Allergy (Verified 05/17/18 08:54) Medications to take at Discharge Famotidine/Ca Carb/Mag Hydrox [Pepcid Complete Tablet Chew] 1 each PO PRN PRN 05/17/18 Levothyroxine [Synthroid] 100 mcg PO DAILY 05/17/18 Primary Care Physician: Connor Cueva MD [Primary Care Provider] - Test Results: Test results from this visit will be discussed in further detail at your follow-up appointment, if applicable. Please Follow Up With: Wesley Valdez MD When: 7-14 days 05/25/18 1003 <Electronically signed by Wesley Valdez MD> Date Wesley Valdez MD CC: Connor Cueva MD HISTORY AND PHYSICAL Observed: 05/23/2018 Status: F Source: [facility] [place] EXAM 12:56 PM [facility] Medical Records Department [address] [place] [address] History and Physical 05/23/18 1243 MR#: [id number] Acct: [id number] Name: CONNER LIM Christin Rep #: [id number] : 1965 52 From: Wesley Valdez MD PCP: Connor Cueva MD Status: PRE [facility] [place] Location: [facility] Problem List (1) Chronic venous insufficiency Status: Chronic (2) Varicose veins with inflammation Status: Chronic (3) Leg pain Status: Chronic Qualifiers: Laterality: left Qualified Code(s): M79.605 - Pain in left leg (4) Leg swelling Status: Chronic History of Present Illness Date of Admission: 05/25/18 Chief Complaint: Chronic venous insufficiency, varicose veins with inflammation, leg pain, leg swelling left lower extremity The patient is a 52 year old F with a long-standing history of chronic venous insufficiency, varicose veins with inflammation, leg pain, and leg swelling involving her left lower extremity. For approximately 20 years, the patient has experienced pain, discomfort, soreness, and aching in her left lower extremity. Her symptoms have become progressively worse. Venous duplex examination has been performed, revealing incompetence of the left great saphenous vein, the left small saphenous vein, and the left accessory saphenous vein at the S2 position. The implications of this diagnosis were discussed with the patient in detail. The options of management were fully explained. Conservative treatment measures were implemented, which included leg elevation, avoidance of idle standing and sitting, graduated compression stockings, weight control measures, active lifestyle, [id number] analgesics, etc. Despite these measures, the patient remained symptomatic, with symptoms which adversely affect her daily activities, quality of life, and job functions. [] Past Medical History Past Medical History (Chronic Problems): Chronic Problems Chronic venous insufficiency (Chronic) Varicose veins with inflammation (Chronic) Leg pain (Chronic) Leg swelling (Chronic) Allergies No Known Allergies Allergy (Verified 05/17/18 08:54) Home Medications: Ambulatory Orders Medication Instructions Recorded Famotidine/Ca Carb/Mag Hydrox 1 each PO PRN PRN 05/17/18 [Pepcid Complete Tablet Chew] Levothyroxine [Synthroid] 100 mcg PO DAILY 05/17/18 Surgical History: - - Open reduction and internal fixation of a right ankle fracture in 1985 Psychiatric History: No pertinent psych hx MANAGER TEST History: - - The patient is a [id number] Smoking Status: Former smoker Alcohol: Occasional Drugs: None Review of Systems Constitutional: Denies: Chills, Fever, Weight Change HEENT: Denies: Head Aches, Sinus Congestion, Sinus Drainage Cardiovascular: Denies: Chest Pain, Palpitations Respiratory: Denies: Cough, Shortness of breath at rest, Sputum production Gastrointestinal: Denies: Abdominal Pain, Nausea, Vomiting Genitourinary: Denies: Dysuria Musculoskeletal: Denies: Joint Pain, Joint Tenderness Skin: Denies: Rash, Wounds Neurological: Denies: Numbness, Tingling, Focal weakness Psychiatric: Denies: Anxiety, Depression, Homicidal Ideations, Suicidal Ideations Hematologic/ Lymphatic: Denies: Easy Bruising, Easy Bleeding VTE Information - Inpt Only VTE Present on Admission: No VTE Mechan Device Prophylaxis: SCD's - Right VTE Pharm Prophylaxis ordered?: Yes - Physical Exam General: Alert, Oriented x3, Cooperative, No apparent distress, Well developed, Well nourished HEENT: Atraumatic, PERRLA, EOMI, Normocephalic Oral: Moist Mucosa, No Gingival or Mucosal Lesions/ Ulcerations Neck: Supple, No JVD, Negative Carotid Bruits, No Nodes, No Nuchal Rigidity, Trachea Midline Lungs: Clear to auscultation, Normal air movement, No rhonchi, No wheeze, No rales Cardiovascular: Regular rate, Regular Rhythm, Normal S1, Normal S2, No murmurs Abdomen: Bowel Sounds Present, Soft, Non Tender Extremities: No clubbing, No cyanosis, No edema, Capillary Refill Less than 3 Seconds, No Calf Tenderness, - - Peripheral extremities are warm and well perfused. Multiple large varicosities are noted on the left medial calf. Skin: No rashes, No breakdown Musculoskeletal: No Tenderness to Palpation of Joints or Extremities, No Muscle Wasting Neurological: Cranial nerves II-XII grossly intact, Neuro grossly intact Psych/Mental Status: Normal Affect, Appropriate, Alert and oriented to time, place, person, mood and affect Vital Signs Temp Pulse Resp BP Pulse Ox 98.3 F 71 17 115/80 98 05/17/18 08:56 05/17/18 08:56 05/17/18 08:56 05/17/18 08:56 05/17/18 08:56 Oxygen Delivery Method Room Air Weight: 283 lb 11.759 oz Body Mass Index (BMI) 40.7 Assessment/Plan Impression: This is a 52-year-old female with a long-standing history of chronic venous insufficiency, varicose veins with inflammation, leg pain, and leg swelling involving her left lower extremity. Despite the implementation of conservative treatment measures, the patient has remained symptomatic, with symptoms which have adversely affected her daily activities, quality of life, and job functions. The indications and risks of endovenous laser ablation of the left great saphenous vein, the left small saphenous vein, and the left accessory saphenous vein at the S2 position have been discussed with the patient in detail. Plan: The patient is to be admitted for the purpose of elective endovenous laser ablation of the left great saphenous vein, the left small saphenous vein, and the left accessory saphenous vein at the S2 position. The indications and risks of the procedure have been discussed with patient in detail. The appropriate preprocedure consent process has been undertaken. 05/23/18 1256 <Electronically signed by Wesley Valdez MD> Date Wesley Valdez MD Cosigner Signature: Date (if applicable) CC: Connor Cueva MD; Wesley Valdez MD Signed 12 LEAD ELECTROCARDIOGRAM Observed: 05/22/2018 Status: F Source: [place] 2:24 PM [facility] REPOSITORY [facility] Cardiovascular Services [address] [place] [address] EKG - SDC 05/17/18 0922 MR#: [id number] Acct: [id number] Name: CONNER LIM Rep #: [id number] : 1965 52 From: Sarthak Rodriguez MD Attending Dr: Wesley Valdez MD Status: PRE SDC Ordering Dr: Wesley Valdez MD Date: 05/17/18 Location: [facility] Sex: F C Admitted: Test Reason : Blood Pressure : / mmHG Vent. Rate : 069 BPM Atrial Rate : 069 BPM P-R Int : 178 ms QRS Dur : 080 ms QT Int : 380 ms P-R-T Axes : 002 -06 014 degrees QTc Int : 407 ms Normal sinus rhythm Normal ECG Confirmed by SARTHAK RODRIGUEZ MD ([id number]), photography editor ADI OCHOA ([id number]) on 05/22/2018 2:24:11 PM Referred By: Wesley Valdez Confirmed By:SARTHAK RODRIGUEZ MD 05/22/18 1424 Date Sarthak Rodriguez MD CC: Connor Cueva MD; Wesley Valdez MD Date Dictated: 05/17/18921 Date Transcribed: 05/17/18921 Chief Technical Officer: Signed CBC-COMPLETE BLOOD CNT Collected: 05/17/2018 Status: F Source: [facility] NO DIFF 9:30 AM [facility] REPOSITORY TYPE CODE TESTS RESULT OUT OF RANGE REFERENCE UNITS LAB L100.1000 4.4-11.0 K/mm3 Normal WBC 5.5 LAB L100.1200 4.2-5.4 M/mm3 Normal RBC 4.69 LAB L100.1300 12.0-15.0 g/dl Normal HGB 14.0 LAB L100.1400 37-47 % Normal HCT 42.5 LAB L100.1500 81-99 fL Normal MCV 90.6 LAB L100.1600 27.0-32.0 pg Normal MCH 29.9 LAB L100.1700 32-36 g/gl Normal MCHC 32.9 LAB L100.1810 11.6-14.6 % Normal RDW CV 12.6 LAB L100.1820 35.1-43.9 fl Normal RDW SD 41.7 LAB L100.1900 150-450 K/mm3 Normal PLT 171 LAB L100.2000 6.2-12.0 fl Normal MPV 10.4 Performed By: #### L100.0500 #### [facility] [address] [place], [address] BASIC METABOLIC Collected: 05/17/2018 Status: F Source: [facility] PROFILE (BMP) 9:30 AM [facility] REPOSITORY TYPE CODE TESTS RESULT OUT OF RANGE REFERENCE UNITS LAB L501.0100 74-106 mg/dL Normal GLU 102 Result Comment: Fasting Glucose result from 100 to 125 mg/dL suggests IMPAIRED HOMEOSTASIS per A.D.A. criteria. Please note revised GLUCOSE reference range effective 2017. LAB L501.1000 7-18 mg/dL Normal BUN 14 LAB L501.1100 0.55-1.02 mg/dL Normal CREAT,SERUM 0.83 Result Comment: The validity of the calculated GFR AND GFRAA in patients over 70 years has not been determined. Clinical correlation is essential. LAB L501.1110 >60 mL/min Normal EST GFR 77 Result Comment: Non- GFR Calc LAB L501.1115 >60 mL/min Normal EST GFR - AA 93 Result Comment: GFR Calc LAB L501.1255 ml/min Normal Estimated CRCL 85.74 LAB L501.1300 10-20 RATIO Normal BUN/CRE 16.9 LAB L501.2200 8.5-10 mg/dL Normal .1 CA 8.5 LAB L501.5300 136-14 mmol/L Normal 5 NA 139 LAB L501.5600 3.5-5. mmol/L Normal 1 K 3.9 LAB L501.5900 98-107 mmol/L Normal CL 105 LAB L501.6100 21.0-3 mmol/L Normal 2.0 CO2 26.0 LAB L501.6200 5-15 Normal GAP 8 Performed By: #### L500.2500 #### [facility] [address] [place], [place], [address] ALLERGIES ALLERGIES DATE TYPE / CODE NAME / CODE REACTION SEVERITY SOURCE 06/07/2018 Drug No Known Unknown [facility] Allergy/4160 Allergies/F00 Hospital 69051(SNOMED [id number](RXNOR Repository CT) M) ENCOUNTERS ENCOUNTERS ADMIT/DISCHARGE ACCOUNT ADMITTING ENCOUNTER LOCATION SOURCE NUMBER CLASS 06/07/2018 [id number] Ambulatory [place] Victor Manuel 2 [facility] ing:LABSPEC Repository 06/07/2018/ [id number] Ambulatory BMSBuilding:B [place] 8 9 [facility] Repository 05/25/2018 [id number] Ambulatory Victor Manuel [place] 4 [facility] ing:EDREF Repository 05/25/2018/ [id number] Ambulatory Victor Manuel Victor Manuel 8 9 [facility] ing:SDC Repository 05/17/2018 [id number] Ambulatory BMSBuilding:W [place] 9 [facility] Repository PAYERS PAYERS ENCOUNTER GUARANTOR PAYER SUBSCRIBER SOURCE 06/07/2018 CONNER Christin Primary CONNERROSEMARY [place] [id number] Insurance:ANTHEMPolic FITZPATRICDOB: Critical access hospital y Number: [id number], [place] [id number] Repository [address]Tru: 330) Date:0210-35-31[phone] () [id number], [place] [address]OB: 06/07/2018 Secondary NOT GIVENUNK [place] Insurance:SELF PAY [facility] Number: Effective Repository Date:2018-06-07 06/07/2018 CONNER D Primary CONNER D Victor Manuel [id number] Insurance:ANTHEMPolic FITZPATRICDOB: Critical access hospital y Number: [id number], [place] [id number] Repository [address]Obf: (330) Date:7325-52-87[phone] () [id number], [place] [address]VX: 06/07/2018 Secondary NOT GIVENUNK [place] Insurance:SELF PAY [facility] Number: Effective Repository Date:2018-06-05 05/25/2018 CONNER D Primary NOT GIVENUNK [place] [id number] Insurance:SELF PAY [place] Number: Effective Repository [id number]: (330) Date:2018-05-25 [phone] () 05/25/2018 CONNER D Primary CONNER D Victor Manuel [id number] Insurance:ANTHEMPolic FITZPATRICDOB: Critical access hospital y Number: [id number], [place] [id number] Repository [address]Zzx: (330) Date:1168-97-21TF [phone] () [id number], [place] [address]DV: 05/25/2018 Secondary NOT GIVENUNK [place] Insurance:SELF PAY [facility] Number: Effective Repository Date:2018-02-27 05/17/2018 CONNER D Primary CONNER D [place] [id number] Insurance:ANTHEMPolic FITZPATRICDOB: Critical access hospital y Number: [id number], [place] [id number] Repository [address]Xcz: (330) Date:5700-72-85[phone] () CITLALI KLINE [address]NC: 05/17/2018 Secondary NOT GIVENUNK Victor [place] Insurance:SELF PAY [facility]: Effective Repository Date:2018-05-17
== END 2018-05-25 13:05 | disposition home or self-care (01) ==
LOC: SDC 05:41 → AC 05:42
PROVIDERS: Family Provider Internal Medicine; PCP Internal Medicine; Referring Provider Surgery; Visit Provider Surgery
PROC: (CPT 36478; principal; 2018-05-25 07:15)
DX: I83.12 Varicose veins of left lower extremity with inflammation (principal); I87.2 Venous insufficiency (chronic) (peripheral); E06.9 Thyroiditis, unspecified; K21.9 Gastro-esophageal reflux disease without esophagitis; Z87.891 Personal history of nicotine dependence; Z79.899 Other long term (current) drug therapy
CPT/HCPCS: 36478; 36479; 80048; 85027; 93005; J7040; J7120; J2405

== ENCOUNTER → 2018-06-07 12:31 | Outpatient (CLI) | payer BC, SELFPAY ==
[2018-06-07 10:36] VITALS: BMI 40.7
[2018-06-07 12:43] LABS: Bacteria 0 SEEN /hpf (None Seen); Mucous, Urine 0 SEEN /hpf (<or=2+); Red Blood Cells-Urine 0 SEEN /hpf (0-5); White Blood Cells 0 SEEN /hpf (0-5)
[2018-06-07 12:51] LABS: Color, Urine Yellow (Yellow); Glucose, Dipstick Normal (Normal); Ketone-Dipstick Negative (Negative); Leukocyte Esterase-Dipstick Negative /ul (Negative); Nitrite-Dipstick Negative (Negative); Occult Blood-Urine Negative /ul (Negative); Protein-Dipstick Negative (Negative); Specific Gravity, Urine 1.015 (1.002-1.030); Urine Bilirubin Dipstick Negative (Negative); Urine Clarity Clear (Clear); Urine Urobilinogen Normal (Normal)
[2018-06-07 12:58] LABS: Squamous Epithelial Cells - UA 0-5 SEEN /hpf (5-10)
== END ==
PROVIDERS: Family Provider Internal Medicine; PCP Internal Medicine; Referring Provider Nurse Practitioner Family; Visit Provider Nurse Practitioner Family
DX: R31.9 Hematuria, unspecified (principal)
CPT/HCPCS: 81001; 87086; 87088

== ENCOUNTER → 2018-07-12 10:28 | Outpatient (CLI) | payer BC, SELFPAY ==
[2018-06-07 10:36] VITALS: BMI 40.7
[2018-07-12 11:08] LABS: Cholesterol 205 mg/dL (200); High Density Lipoprotein 31 mg/dL; T4 Free Direct 0.75 ng/dL (0.76-1.46); Thyroid Stim Hormone (TSH) 7.76 uIU/mL (0.358-3.74); Triglycerides 207 mg/dL; Very Low Density Lipoprotein 41 mg/dL (5-40)
== END ==
PROVIDERS: Family Provider Internal Medicine; PCP Internal Medicine; Referring Provider Nurse Practitioner Family; Visit Provider Nurse Practitioner Family
DX: E03.9 Hypothyroidism, unspecified (principal); E78.5 Hyperlipidemia, unspecified
CPT/HCPCS: 36415; 80061; 84439; 84443

== ENCOUNTER → 2018-07-26 09:59 | Outpatient (CLI) | payer BC, SELFPAY ==
[2018-06-07 10:36] VITALS: BMI 40.7
[2018-07-19 10:30] VITALS: BMI 40.7
--- NOTE | 2018-07-26 10:01 | BI_ITS ---
MAMMOGRAPHY - BILATERAL SCREENING REASON FOR EXAM: Female, 52 years old. Routine annual screening examination. PERTINENT HISTORY: Non-contributory. TECHNIQUE: Digital bilateral breast yordan (3D mammographic acquisition) in the CC and MLO projections. 2-D mediolateral oblique (MLO) and craniocaudad (CC) views of both breasts were obtained. CAD: Full Field Digital Mammography with Computer Added Detection was performed. COMPARISON: Comparison is made with prior examination dated August 05, 2016 and March 10, 2015. FINDINGS: Breast Composition: There are scattered areas of fibroglandular density. There are no dominant masses or suspicious calcifications. Stable small bilateral axillary lymph nodes. No other significant abnormalities are identified. There has been no significant change since the prior study. BI/SCREENING MAMM (CAD), BILAT IMPRESSION: Stable bilateral screening mammogram. Yearly follow-up mammogram recommended. (A) ASSESSMENT CATEGORY: BIRADS Category 2: Benign. A letter regarding these results will be sent to the patient by the facility within 30 days. Approximately 10% of breast cancers are not detected by mammography. A normal mammogram should not delay biopsy of a clinically suspicious abnormality. [id number] Electronically Signed: Yovanny Bob MD at 12:29 EST , Service support ,
== END ==
PROVIDERS: Family Provider Internal Medicine; PCP Internal Medicine; Referring Provider Nurse Practitioner Family; Visit Provider Nurse Practitioner Family
DX: Z12.31 Encounter for screening mammogram for malignant neoplasm of breast (principal)
CPT/HCPCS: 77063; 77067

== ENCOUNTER → 2018-11-14 | Outpatient (CLI) | payer BC, SELFPAY ==
[2018-11-14 10:28] VITALS: BMI 40.7
[2018-11-14 12:45] LABS: T4 Free Direct 0.85 ng/dL (0.76-1.46); Thyroid Stim Hormone (TSH) 3.82 uIU/mL (0.358-3.74)
== END | disposition home or self-care (01) ==
LOC: BIMLAB 10:53
PROVIDERS: Nurse Practitioner Family; Family Provider Internal Medicine; PCP Internal Medicine; Visit Provider Internal Medicine
DX: E03.9 Hypothyroidism, unspecified (principal)
CPT/HCPCS: 36415; 84439; 84443

== ENCOUNTER → 2019-05-15 10:44 | Outpatient (CLI) | payer BC, SELFPAY ==
[2019-05-15 10:40] VITALS: BMI 40.3
[2019-05-15 12:21] LABS: Hemoglobin 14.6 g/dL (12.0-15.0); Mean Corp Hgb Conc 32.4 g/dL (32-36); Mean Corpuscular Volume 89.5 fL (81-99); Mean Platelet Vol. 10.7 fl (6.2-12.0); Platelet Count 213 K/mm3 (150-450); RBC Distribution Width CV 11.9 % (11.6-14.6); RBC Distribution Width SD 38.2 fl (35.1-43.9); Red Blood Count 5.03 M/mm3 (4.2-5.4); White Blood Count 4.7 K/mm3 (4.4-11.0)
[2019-05-15 12:46] LABS: ALB/GLOB Ratio 1.2 RATIO (0.9-2.4); AST(SGOT) 11 U/L (15-37); Alanine Aminotransfer ALT/SGPT 29 U/L (13-56); Albumin, Serum 3.9 g/dL (3.2-5.0); Alkaline Phosphatase 75 U/L (45-117); Anion Gap 7 (5-15); BUN 11 mg/dL (7-18); BUN/Creat Ratio 13.5 RATIO (10-20); Calcium,Total 8.8 mg/dL (8.5-10.1); Chloride 105 mmol/L (98-107); Creatinine, Serum 0.82 mg/dL (0.55-1.02); EST Glomerular Filtration Rate 78 mL/min (>60); Est Glom Filt Rate - Afr Amer 94 mL/min (>60); Globulin 3.3 g/dL (2.2-4.2); Glucose 117 mg/dL (74-106); Potassium 3.8 mmol/L (3.5-5.1); Protein, Total 7.2 g/dL (6.4-8.2); Sodium Level 138 mmol/L (136-145); Thyroid Stim Hormone (TSH) 4.78 uIU/mL (0.358-3.74)
== END ==
PROVIDERS: Family Provider Internal Medicine; PCP Internal Medicine; Visit Provider Internal Medicine
DX: E03.9 Hypothyroidism, unspecified (principal); G47.10 Hypersomnia, unspecified; E66.01 Morbid (severe) obesity due to excess calories; Z68.41 Body mass index [BMI] 40.0-44.9, adult
CPT/HCPCS: 36415; 80053; 84443; 85027

== ENCOUNTER → 2020-09-17 10:37 | Outpatient (CLI) | payer OTHER, SELFPAY ==
[2020-09-17 10:15] VITALS: BMI 41.0
[2020-09-17 12:05] LABS: Absolute Lymphocyte Count 1.42 X10^3/uL (0.83-4.51); Absolute Neutrophil Count 3.1 X10^3/uL (2.0-7.7); Basophil# 0.03 X10^3/uL; Basophil% 0.6 % (0-1); Eosinophil# 0.06 X10^3/uL; Eosinophils% 1.2 % (0-5); Hemoglobin 14.6 g/dL (12.0-15.0); Lymphocyte # 1.42 X10^3/ul (4.0); Lymphocyte % 28.5 % (19-41); Mean Corp Hgb Conc 33.2 g/dL (32-36); Mean Corpuscular Hgb 30.2 pg (27.0-32.0); Mean Corpuscular Volume 91.1 fL (81-99); Mean Platelet Vol. 11.3 fl (6.2-12.0); Monocyte# 0.38 X10^3/uL; Monocyte% 7.6 % (0-10); NRBC Flagged by Analyzer 0 % (0-5); Neutrophil # 3.07 X10^3/uL (2.7-7.7); Neutrophil % 61.7 % (47-70); Platelet Count 180 K/mm3 (150-450); RBC Distribution Width CV 11.9 % (11.6-14.6); RBC Distribution Width SD 39.2 fl (35.1-43.9); Red Blood Count 4.83 M/mm3 (4.2-5.4)
[2020-09-17 12:25] LABS: ALB/GLOB Ratio 1.2 RATIO (0.9-2.4); AST(SGOT) 13 U/L (15-37); Alanine Aminotransfer ALT/SGPT 29 U/L (13-56); Albumin, Serum 3.9 g/dL (3.2-5.0); Alkaline Phosphatase 81 U/L (45-117); Anion Gap 3 (5-15); BUN 13 mg/dL (7-18); BUN/Creat Ratio 18.3 RATIO (10-20); Calcium,Total 9.1 mg/dL (8.5-10.1); Chloride 105 mmol/L (98-107); Cholesterol 210 mg/dL (200); Creatinine, Serum 0.71 mg/dL (0.55-1.02); EST Glomerular Filtration Rate 91 mL/min (>60); Est Glom Filt Rate - Afr Amer 110 mL/min (>60); Globulin 3.2 g/dL (2.2-4.2); Glucose 112 mg/dL (74-106); High Density Lipoprotein 34 mg/dL; Protein, Total 7.1 g/dL (6.4-8.2); Sodium Level 138 mmol/L (136-145); Thyroid Stim Hormone (TSH) 4.89 uIU/mL (0.358-3.74); Triglycerides 195 mg/dL; Very Low Density Lipoprotein 39 mg/dL (5-40)
== END ==
PROVIDERS: PCP Internal Medicine; Referring Provider Internal Medicine; Visit Provider Internal Medicine
DX: E03.9 Hypothyroidism, unspecified (principal)
CPT/HCPCS: 36415; 80053; 80061; 84443; 85025

== ENCOUNTER → 2020-09-23 11:34 | Outpatient (CLI) | payer OTHER, SELFPAY ==
[2020-09-17 10:15] VITALS: BMI 41.0
--- NOTE | 2020-09-23 11:41 | BI_ITS ---
MAMMOGRAPHY - BILATERAL SCREENING REASON FOR EXAM: Female, 54 years old. Routine annual screening examination. PERTINENT HISTORY: Non-contributory. TECHNIQUE: Digital bilateral breast lori (3D mammographic acquisition) in the CC and MLO projections. 2-D mediolateral oblique (MLO) and craniocaudad (CC) views of both breasts were obtained. CAD: Full Field Digital Mammography with Computer Added Detection was performed. COMPARISON: Comparison is made with prior study dated 07/26/2018 and 08/05/2016. FINDINGS: Breast Composition: There are scattered areas of fibroglandular density. There are no dominant masses or suspicious calcifications. Stable small benign appearing bilateral axillary lymph nodes. No other significant abnormalities are identified. There has been no significant change since the prior study. BI/SCRN MAMM (CAD)W/LORI BILAT IMPRESSION: Stable bilateral screening mammogram. Yearly follow-up mammogram recommended. (A) ASSESSMENT CATEGORY: BIRADS Category 2: Benign. A letter regarding these results will be sent to the patient by the facility within 30 days. Approximately 10% of breast cancers are not detected by mammography. A normal mammogram should not delay biopsy of a clinically suspicious abnormality. [id number] Electronically Signed: Yovanny Bob MD at 13:15 EDT , Service support ,
== END ==
PROVIDERS: PCP Internal Medicine; Referring Provider Internal Medicine; Visit Provider Internal Medicine
DX: Z12.31 Encounter for screening mammogram for malignant neoplasm of breast (principal)
CPT/HCPCS: 77063; 77067

== ENCOUNTER → 2021-10-07 | Outpatient (CLI) | payer BC, SELFPAY ==
[2021-10-07 12:13] LABS: Absolute Lymphocyte Count 1.34 X10^3/uL (0.83-4.51); Absolute Neutrophil Count 2.9 X10^3/uL (2.0-7.7); Basophil# 0.02 X10^3/uL; Basophil% 0.4 % (0-1); Eosinophil# 0.08 X10^3/uL; Eosinophils% 1.7 % (0-5); Hematocrit 43.8 % (37-47); Hemoglobin 14.5 g/dL (12.0-15.0); Lymphocyte # 1.34 X10^3/ul (0.83-4.51); Lymphocyte % 28.5 % (19-41); Mean Corp Hgb Conc 33.1 g/dL (32-36); Mean Corpuscular Hgb 29.4 pg (27.0-32.0); Mean Corpuscular Volume 88.8 fL (81-99); Mean Platelet Vol. 10.7 fl (6.2-12.0); Monocyte% 6.4 % (0-10); NRBC Flagged by Analyzer 0 % (0-5); Neutrophil # 2.94 X10^3/uL (2.7-7.7); Neutrophil % 62.6 % (47-70); Platelet Count 191 K/mm3 (150-450); RBC Distribution Width SD 39.3 fl (35.1-43.9); Red Blood Count 4.93 M/mm3 (4.2-5.4); White Blood Count 4.7 K/mm3 (4.4-11.0)
[2021-10-07 12:46] LABS: ALB/GLOB Ratio 1.1 RATIO (0.9-2.4); AST(SGOT) 14 U/L (15-37); Alanine Aminotransfer ALT/SGPT 30 U/L (13-56); Albumin, Serum 3.8 g/dL (3.2-5.0); Alkaline Phosphatase 73 U/L (45-117); Anion Gap 6 (5-15); BUN 11 mg/dL (7-18); BUN/Creat Ratio 17.3 RATIO (10-20); Calcium,Total 8.5 mg/dL (8.5-10.1); Chloride 106 mmol/L (98-107); Cholesterol 200 mg/dL (200); Creatinine, Serum 0.64 mg/dL (0.55-1.02); EST Glomerular Filtration Rate 103 mL/min (>60); Est Glom Filt Rate - Afr Amer 124 mL/min (>60); Globulin 3.5 g/dL (2.2-4.2); Glucose 115 mg/dL (74-106); High Density Lipoprotein 32 mg/dL; Potassium 3.9 mmol/L (3.5-5.1); Protein, Total 7.3 g/dL (6.4-8.2); Sodium Level 137 mmol/L (136-145); Thyroid Stim Hormone (TSH) 5.35 uIU/mL (0.358-3.74); Triglycerides 194 mg/dL; Very Low Density Lipoprotein 39 mg/dL (5-40)
== END | disposition home or self-care (01) ==
LOC: BIMLAB 10:34
PROVIDERS: PCP Internal Medicine; Visit Provider Internal Medicine
DX: E78.5 Hyperlipidemia, unspecified (principal); E03.9 Hypothyroidism, unspecified
CPT/HCPCS: 36415; 80053; 80061; 84443; 85025

== ENCOUNTER → 2021-10-30 | Outpatient (CLI) | payer BC, SELFPAY ==
--- NOTE | 2021-10-30 | BI_ITS ---
MAMMOGRAPHY - BILATERAL SCREENING REASON FOR EXAM: Female, 55 years old. Routine annual screening examination. PERTINENT HISTORY: Non-contributory. TECHNIQUE: Digital bilateral breast lori (3D mammographic acquisition) in the CC and MLO projections. 2-D mediolateral oblique (MLO) and craniocaudad (CC) views of both breasts were obtained. CAD: Full Field Digital Mammography with Computer Added Detection was performed. COMPARISON: Comparison is made with prior study dated 09/23/2020 and 07/26/2018. FINDINGS: Breast Composition: There are scattered areas of fibroglandular density. There are no dominant masses or suspicious calcifications. Stable small benign-appearing bilateral axillary lymph nodes. No other significant abnormalities are identified. There has been no significant change since the prior study. BI/SCRN MAMM (CAD)W/LORI BILAT IMPRESSION: Stable bilateral screening mammogram. Yearly follow-up mammogram recommended. (A) ASSESSMENT CATEGORY: BIRADS Category 2: Benign. A letter regarding these results will be sent to the patient by the facility within 30 days. Approximately 10% of breast cancers are not detected by mammography. A normal mammogram should not delay biopsy of a clinically suspicious abnormality. [id number] Electronically Signed: Yovanny Bob MD at 10:39 EDT ,
== END | disposition home or self-care (01) ==
LOC: OPBI 09:37
PROVIDERS: PCP Internal Medicine; Visit Provider Internal Medicine
DX: Z12.31 Encounter for screening mammogram for malignant neoplasm of breast (principal)
CPT/HCPCS: 77063; 77067

== ENCOUNTER → 2021-11-27 | Outpatient (CLI) | payer BC, SELFPAY ==
--- NOTE | 2021-11-27 09:40 | NEURO ---
NCS and/or EMG Patient Report Ordering Doctor: Connor Cueva DATE OF SERVICE: 11/27/21 Indication: Years of intermittent, bilateral, hand pain and numbness. Symptoms have worsened as of late while taking a more physical role at work. Symptoms are most prominent while driving or trying to sleep. Evaluate for entrapment neuropathy. Findings: Nerve conduction studies were performed in the right and left upper extremities. The right median motor study recording the abductor pollicis brevis showed a normal amplitude, prolonged distal latency and normal conduction velocity. The right ulnar motor study recording the abductor digiti minimi showed a normal amplitude, normal distal latency and normal conduction velocity. Borderline focal slowing was present across the elbow. The right median sensory response recording digit two showed an absent response. The right ulnar sensory response recording digit five showed a borderline normal amplitude, latency and conduction velocity. The right radial sensory response recording over the extensor snuff box showed a normal amplitude, latency and conduction velocity. The left median motor study recording the abductor pollicis brevis showed a normal amplitude, prolonged distal latency and normal conduction velocity. The left ulnar motor study recording the abductor digiti minimi showed a normal amplitude, normal distal latency and normal conduction velocity. Mild focal slowing was present across the elbow. The left median sensory response recording digit two showed a reduced amplitude, prolonged distal latency and markedly slowed conduction velocity. The left ulnar sensory response recording digit five showed a normal amplitude, latency and conduction velocity. The left radial sensory response recording over the extensor snuff box showed a normal amplitude, latency and conduction velocity. Right median-ulnar lumbrical / interosseous motor latencies showed a normal median latency compared to the ulnar. Left median-ulnar lumbrical / interosseous motor latencies showed a normal median latency compared to the ulnar. Needle EMG of the right upper extremity muscles was performed. No denervation was seen in any muscle. Motor units in the abductor pollicis brevis were large amplitude, long duration and mildly polyphasic with normal recruitment. All other motor unit morphology, activation and recruitment patterns were normal. Limited needle EMG of the left abductor pollicis brevis was performed given the paucity of findings on the right and relative symmetry of symptoms. No denervation was seen. Motor unit morphology, activation and recruitment patterns were normal. Impression: This is an abnormal study. 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 The pathophysiology is predominantly demyelination with some evidence of secondary sensory axon loss. These findings are compatible with the clinical diagnosis of carpal tunnel syndrome. In addition, there is borderline focal slowing of the ulnar across the elbow on both sides. This finding should be interpreted with caution as it would not explain the patients current symptomatology. Lastly, there is no electrophysiologic evidence of superimposed cervical radiculopathy neuropathy in the right upper extremity. Yo Albarran D.O. Procedures Neurology CF Procedures [id number]: [id number] [facility] tst done w/nerv tst elizondo (interp) (59)
== END | disposition home or self-care (01) ==
LOC: PSN 08:06
PROVIDERS: PCP Internal Medicine; Referring Provider Internal Medicine; Visit Provider Internal Medicine
DX: G56.03 Carpal tunnel syndrome, bilateral upper limbs (principal)
CPT/HCPCS: 95885; 95886; 95913

== ENCOUNTER 2022-02-02 07:30 | Day surgery (SDC) | payer BC, SELFPAY ==
[2022-02-02] VITALS (7 sets, daily range): BP systolic 85–123; BP diastolic 58–77; PULSE 63–78; RESP 16–18; TEMP 36.1–36.6; O2SAT 92–96; BMI 40.1
[2022-02-02] MEDS: Lactated Ringers 1,000 ML 15 ML IV (08:01)
--- NOTE | 2022-02-02 08:40 | HP.PCM_ITS ---
History and Physical Date of Admission: 02/02/22 [facility] [address] [facility] [address] [place] [address] OFFICE VISIT Date of Service:? 01/25/22 MR#: [id number] Acct: [id number] Name:CONNER ABURTO Rep #: [id number] : 1965 ? ? Provider: Dr. Mio Mendoza, DO Age/Sex:? 56/F ? ? Location: [facility] [place] Status: Signed Intake Intake Visit Reasons:?Bilat wrists Chief Complaint: yearly check up Allergies No Known Allergies Allergy (Verified 10/07/21 10:03) Medications famotidine-Ca carb-mag hydrox 10 mg-800 mg-165 mg chewable tablet 1 tab PO DAILY PRN Heartburn 05/15/19 [History Confirmed 01/25/22] levothyroxine 112 mcg tablet 112 mcg PO DAILY THYROID #60 tabs 10/13/21 [Rx Confirmed 01/25/22] PFSH Medical History?(Updated 10/07/21 @ 12:[address] Connor Cueva MD) Bilateral carpal tunnel syndrome Health care maintenance Hyperlipidemia Hypothyroid Surgical History? History of vascular surgery Family History? Father Heart disease Skin cancerGrandfather?? CVA (cerebral vascular accident)Grandmother Cancer Social History? Smoking Status:? Former smoker how long ago did patient quit smoking:? 2008 alcohol intake:? current alcohol intake frequency: holidays/special occasions only Alcohol type: beer substance use type:? does not use what type of physical activity do you participate in:? none HPI Bilat wrists Details: Parts of this documentation were recorded by a scribe, this documentation accurately reflects the service provided and the decisions made by me, Dr. Mio Mendoza, DO 01/25/22 0918. CONNER LIM is a 56 year old F NEW patient here today for BL hand numbness/tingling. 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 She states that the pain can keep her up at night at times. She states that the left hand is worse than the right. She is right handed. She has tried BL night bracing for around 1 year and they are sometimes helpful. She has pain into all of her left fingers. She states that she feels the numbness and tingling into the 1st through 4th fingers. She did have a hyperextension injury to the left pinky about 3 months ago and she has had some increased pain since then. She has had an EMG of the BL upper extremities on 11/27/21. Denies any surgery or injections of the wrist. She states that she did have a a fall as a child and ever since then she has noted some decreased supination on the right hand. Ortho Exam General General: Yes no acute distress Neurologic: Yes alert and Yes oriented x3 Psychologic: Yes reasonable and appropriate Right Wrist/Hand Skin/Wound: No Swelling and No Ecchymosis Right Wrist: Yes Durken's Test, Tinel's and Phalen's WRIST: 78 supination full pronation 45 wrist flexion 80 wrist extension Left Wrist/Hand Skin/Wound: No Swelling, No Ecchymosis, Yes capillary refill normal and No erythema Left Wrist: Yes Durken's Test, Yes Tinel's and Yes Phalen's WRIST: 85 supination full pronation 75 extension 40 flexion 10 ulnar deviation 40 radial deviation Supplemental Info 11/27/2021 EMG bilateral upper extremity: this is an abnormal study. There is el ectrophysiologic evidence of median neuropathy across the wrist in both upper extremities. The pathophysiology is predominantly demyelination with some evidence of secondary sensory axon loss. These findings are compatible with the clinical diagnosis of carpal tunnel syndrome. In addition, there is borderline focal slowing of the ulnar across the elbow on both sides. This finding should be interpreted with caution as it would not explain the patients current symptomatology. Lastly, there is no electrophysiologic evidence of superimposed cervical radiculopathy neuropathy in the right upper extremity. Coding Level of Care Code Off vis,new,level 3 Assessment and Plan Plan Details Additional Comments: Patient educated that she does have BL carpal tunnel syndrome. Treatment options are do nothing or night bracing with NSAIDs or nerve glide exercises or carpal tunnel release. If she does have a release she would be off work for about 3 weeks with restrictions. Reviewed the pre-operative plans with the patient. Risks and benefits of the procedure were fully explained, including but not limited to infection, neurovascular injury, continued pain, arthritis, stiffness, need for further surgery, re-injury, DVT, PE, general risks of anesthesia, and loss of limb or life. The patient understands all the risks and does wish to proceed with written consent. She wishes to proceed with left open carpal tunnel release. Follow up 2 weeks post op or sooner if pain, swelling, numbness or associated symptoms, or concerns develop.? All questions answered. Patient in agreement of plan. 01/25/22 1427 <Electronically signed by Mio Mendoza DO> Date Mio Mendoza DO Cosigner Signature: Date I have re-examined the patient. There are no clinical changes since date of exam
[2022-02-02] MEDS: Cefazolin 2 GM in 0.9% Normal Saline 100 ML IV (09:07)
[2022-02-02] MEDS: Lidocaine 1% /Epi 1:100 (20ml) 20 ML Vial (09:20)
--- NOTE | 2022-02-02 09:34 | OP.PCM_ITS ---
Operative Report Date of Procedure: 02/02/22 Preoperative diagnosis; left carpal tunnel syndrome Postoperative diagnosis; same Procedure: Left open carpal tunnel release Anesthesia: Local with MAC Tourniquet time; 15 minutes 250 mm Hg Complications: None Indication for procedure; This is a 56-year-old female with long-standing sym ptoms consistent with carpal tunnel syndrome the patient did have electrodiagnostic evidence of this and has failed conservative treatment. Risks benefits and alternatives were reviewed including risks of bleeding infection nerve artery tissue damage need for further surgery and continued pain and symptoms, hypersensitivity to scar and Pillar pain. Procedure; The patient was met in the preoperative holding area the operative extremity was identified by both patient and physician and was marked the patient was met by anesthesia and brought back to the operating room and transferred to the operating table in the supine position. Anesthesia was started. A well-padded tourniquet was placed on the operative upper extremity. The patient was prepped and draped in the usual sterile fashion. A timeout was called to ensure the proper patient procedure and extremity were being contemplated. 0.5 percent lidocaine with epinephrine was injected into the incisional area. An Esmarch was used to exsanguinate the extremity. The tourniquet was inflated to 250 mmHg. A midline incision was made with a 15 blade scalpel between the thenar and hypothenar eminence. This was carried down through the skin and subcutaneous tissue. Toni retractors were then used, a deep blade scalpel was used to make a deep incision in the palmar aponeurosis. The toni retractors were then placed deep to this and the transverse carpal ligament was identified a perforation was made with a scalpel and a Littler scissors were used to complete the release of the transverse carpal ligament distally under direct visualization with the tips facing ulnarly until the perivascular fat was reached. Then turning our attention proximally using a tension slide technique the proximal extent of the transverse carpal ligament was released . There was noted to be hourglass configuration to the median nerve and hypertrophy of the transverse carpal ligament without other findings. The wound was thoroughly irrigated and was closed with 4-0 nylon vertical mattress stitches. Dressing was applied in the form of xeroform 4 x 4, web roll and an diana wrap. Tourniquet was let down there is no intraoperative complications patient tolerated the procedure well and was transferred to the PACU. All counts were correct.
--- NOTE | 2022-02-02 09:35 | DCINST_ITS ---
Discharge Instructions Activity Additional Activity Instructions:: Ice and elevate operative extremity next 72 hours. Keep dressing on clean and dry for 48 hours then may remove and allow warm soapy water to rinse over incision but do not submerge until sutures are out. Then apply bandaid over incision and change daily. encourage finger range of motion. Not lift more than 1/2 pound. Minimize narcotic use only as needed and directed, may use OTC NSAID and Tylenol to supplement/substitute for pain control. Follow Up Care Please Follow Up With: Mio Mendoza DO When: 2 weeks Test Results: Test results from this visit will be discussed in further detail at your follow- up appointment, if applicable. Discharge Plan Admission Primary Reason for Your Visit: Left carpal tunnel release Attending Provider: Mio Mendoza Primary Care Provider: Connor Cueva Discharge Orders/Prescriptions Prescriptions: New oxycodone 5 mg tablet 5 mg PO Q4H PRN (Reason: pain) 5 Days Qty: 10 0RF No Action famotidine-Ca carb-mag hydrox 10-800-165 mg tablet,chewable 1 tab PO DAILY PRN (Reason: Heartburn) levothyroxine 112 mcg tablet 112 mcg PO DAILY Qty: 60 2RF Referrals / Follow Up: Connor Cueva MD [Primary Care Provider] - Disposition Disposition (needs filled in before D/C Order can be placed): Home, Self Care
== END 2022-02-02 10:49 | disposition home or self-care (01) ==
LOC: SDC 07:33 → AC 07:34
PROVIDERS: PCP Internal Medicine; Referring Provider Orthopaedic Surgery; Visit Provider Orthopaedic Surgery
PROC: (CPT 64721; principal; 2022-02-02 08:55)
DX: G56.02 Carpal tunnel syndrome, left upper limb (principal); E03.9 Hypothyroidism, unspecified; K21.9 Gastro-esophageal reflux disease without esophagitis; Z87.891 Personal history of nicotine dependence; Z79.899 Other long term (current) drug therapy
CPT/HCPCS: 64721; 01810; J7120; J2405

== ENCOUNTER 2022-04-13 05:34 | Day surgery (SDC) | payer BC, SELFPAY ==
[2022-04-13] VITALS (7 sets, daily range): BP systolic 104–113; BP diastolic 64–77; PULSE 64–70; RESP 18; TEMP 36.3–36.4; O2SAT 94–99; BMI 40.8
[2022-04-13] MEDS: Lactated Ringers 1,000 ML 15 ML IV (06:26)
--- NOTE | 2022-04-13 07:16 | HP.PCM_ITS ---
History and Physical Date of Admission: 04/13/22 [facility] [address] [facility] [address] [place] [address] OFFICE VISIT Date of Service:? 02/17/22 MR#: [id number] Acct: [id number] Name:? CONNER LIM Rep #: [id number] : 1965 ? ? Provider: Dr. Mio Mendoza, DO Age/Sex:? 56/F ? ? Location: [facility] [place] Status: Signed Intake Vital Signs ? 10/07/2208:58 02/02/2207:57 Height 5 ft 10 in 5 ft 10 in Intake Visit Reasons:?left wrist Allergies No Known Allergies Allergy (Verified 02/17/22 10:49) Medications famotidine-Ca carb-mag hydrox 10 mg-800 mg-165 mg chewable tablet 1 tab PO DAILY PRN Heartburn 05/15/19 [History Confirmed 02/17/22] levothyroxine 112 mcg tablet 112 mcg PO DAILY THYROID #60 tabs 10/13/21 [Rx Confirmed 02/17/22] PFSH Medical History? Alcohol use Bilateral carpal tunnel syndrome Former smoker Gastric reflux Health care maintenance Hyperlipidemia Hypothyroid Injury of back Low iron Post-menopausal Rash Thyroid disease Wears glasses Surgical History? History of ankle surgery History of vascular surgery Family History? Father Heart disease Skin cancerGrandfather?? CVA (cerebral vascular accident)Grandmother Cancer Social History? Smoking Status:? Former smoker how long ago did patient quit smoking:? 2008 alcohol intake:? current alcohol intake frequency: holidays/special occasions only Alcohol type: beer substance use type:? does not use what type of physical activity do you participate in:? none HPI left wrist Details: Parts of this documentation were recorded by a scribe, this documentation acc urately reflects the service provided and the decisions made by me, Dr. Mio Mendoza, 02/17/22 1047. CONNER LIM is a 56 year old F here today for 2 week follow up post op left wrist open CTR. DOS 02/02/22. States that her wrist is doing very well. Patient states that she hasn't had any pain or discomfort. Denies any numbness or tingling as her symptoms have improved. Ortho Exam General General: Yes no acute distress Neurologic: Yes alert and Yes oriented x3 Psychologic: Yes reasonable and appropriate Right Wrist/Hand Right Wrist: Yes Durken's Test, Tinel's and Phalen's WRIST: 78 supination full pronation 45 wrist flexion 80 wrist extension Left Wrist/Hand WRIST: Incision well approximated no signs of infection sutures removed today she has full finger range of motion and near full wrist range of motion Supplemental Info 11/27/2021 EMG bilateral upper extremity: this is an abnormal study. 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 The pathophysiology is predominantly demyelination with some evidence of secondary sensory axon loss. These findings are compatible with the clinical diagnosis of carpal tunnel syndrome. In addition, there is borderline focal slowing of the ulnar across the elbow on both sides. This finding should be interpreted with caution as it would not explain the patients current symptomatology. Lastly, there is no electrophysiologic evidence of superimposed cervical radiculopathy neuropathy in the right upper extremity. Coding Level of Care Code Global Post Op Assessment and Plan Plan Details Additional Comments: Patient presents for a two week post op left carpal tunnel release. Incision is well approximated and intact. Sutures are removed without any difficulty. Patient expresses improvement of her numbness and tingling in the left hand/fingers. She reports she is washing her incision daily. She has full finger ROM. She is reminded her symptoms will continue to improve. Her incision will be tender for awhile. After 10 days she can begin to break up her scar tissue with a deep tissue massage. Patient is increased to 5 lbs weight restrictions for one week after which she can lift what she is comfortable with. She would like to wait 6 weeks to proceed with a carpal tunnel release of her right hand, with a tentative surgery date for April 13, 2022 02/17/22 1327 <Electronically signed by Mio Mendoza DO> Date Mio Dahl Signature: Date (if applicable) ? CC: ? ~I have examined the patient and the H&P has been reviewed. There are no clinical changes since date of exam.
[2022-04-13] MEDS: Lidocaine 2% /Epi 1:100 (20ml) 20 ML VIAL (07:33)
--- NOTE | 2022-04-13 07:49 | OP.PCM_ITS ---
Operative Report Date of Procedure: 04/13/22 Preoperative diagnosis; right carpal tunnel syndrome Postoperative diagnosis; same Procedure: Right open carpal tunnel release Anesthesia: Local with MAC Tourniquet time; 10 minutes 250 mm Hg Complications: None Indication for procedure; This is a 56-year-old female with long-standing s ymptoms consistent with carpal tunnel syndrome the patient did have electrodiagnostic evidence of this and has failed conservative treatment. Risks benefits and alternatives were reviewed including risks of bleeding infection nerve artery tissue damage need for further surgery and continued pain and symptoms, hypersensitivity to scar and Pillar pain. Procedure; The patient was met in the preoperative holding area the operative extremity was identified by both patient and physician and was marked the patient was met by anesthesia and brought back to the operating room and transferred to the operating table in the supine position. Anesthesia was started. A well-padded tourniquet was placed on the operative upper extremity. The patient was prepped and draped in the usual sterile fashion. A timeout was called to ensure the proper patient procedure and extremity were being contemplated. 2% percent lidocaine with epinephrine was injected into the incisional area. An Esmarch was used to exsanguinate the extremity. The tourniquet was inflated to 250 mmHg. A midline incision was made with a 15 blade scalpel between the thenar and hypothenar eminence. This was carried down through the skin and subcutaneous tissue. Toni retractors were then used, a deep blade scalpel was used to make a deep incision in the palmar aponeurosis. The toni retractors were then placed deep to this and the transverse carpal ligament was identified a perforation was made with a scalpel and a Littler scissors were used to complete the release of the transverse carpal ligament distally under direct visualization with the tips facing ulnarly until the perivascular fat was reached. Then turning our attention proximally using a tension slide technique the proximal extent of the transverse carpal ligament was released . There was noted to be hourglass configuration to the median nerve and hypertrophy of the transverse carpal ligament without other findings. The wound was thoroughly irrigated and was closed with 4-0 nylon vertical mattress stitches. Dressing was applied in the form of xeroform 4 x 4, web roll and an diana wrap. Tourniquet was let down there is no intraoperative complications patient tolerated the procedure well and was transferred to the PACU. All counts were correct.
--- NOTE | 2022-04-13 07:50 | DCINST_ITS ---
Discharge Instructions Dressing / Incision Call your doctor if you observe: Shortness of breath and Chest pain Additional Dressing/Incision Instructions:: Ice and elevate operative extremity next 72 hours. Keep dressing on clean and dry for 48 hours then may remove and allow warm soapy water to rinse over incision but do not submerge until sutures are out. Then apply bandaid over incision and change daily. encourage finger range of motion. Not lift more than 1/2 pound. Minimize narcotic use only as needed and directed, may use OTC NSAID and Tylenol to supplement/substitute for pain control. Follow Up Care Please Follow Up With: Mio Mendoza DO When: 2 weeks Test Results: Test results from this visit will be discussed in further detail at your follow- up appointment, if applicable. Discharge Plan Admission Primary Reason for Your Visit: Right carpal tunnel release Attending Provider: Mio Mendoza Primary Care Provider: Connor Cueva Discharge Orders/Prescriptions Prescriptions: New oxycodone 5 mg tablet 5 - 10 mg PO Q4H PRN (Reason: pain) 3 Days Qty: 15 0RF No Action famotidine-Ca carb-mag hydrox 10-800-165 mg tablet,chewable 1 tab PO DAILY PRN (Reason: Heartburn) levothyroxine 112 mcg tablet 112 mcg PO DAILY Qty: 60 2RF Referrals / Follow Up: Connor Cueva MD [Primary Care Provider] - Disposition Disposition (needs filled in before D/C Order can be placed): Home, Self Care
== END 2022-04-13 08:51 | disposition home or self-care (01) ==
LOC: SDC 05:36 → AC 05:37
PROVIDERS: PCP Internal Medicine; Referring Provider Orthopaedic Surgery; Visit Provider Orthopaedic Surgery
PROC: (CPT 64721; principal; 2022-04-13 07:15)
DX: G56.01 Carpal tunnel syndrome, right upper limb (principal); Z87.891 Personal history of nicotine dependence
CPT/HCPCS: 64721; 01810; J7120; J2405

== ENCOUNTER → 2022-11-22 | Outpatient (CLI) | payer BC, SELFPAY ==
[2022-11-22 12:23] LABS: Absolute Lymphocyte Count 1.52 X10^3/uL (0.83-4.51); Absolute Neutrophil Count 3.5 X10^3/uL (2.0-7.7); Basophil# 0.03 X10^3/uL; Basophil% 0.5 % (0-1); Eosinophil# 0.06 X10^3/uL; Eosinophils% 1.1 % (0-5); Lymphocyte # 1.52 X10^3/ul (0.83-4.51); Lymphocyte % 27.7 % (19-41); Mean Corp Hgb Conc 32.6 g/dL (32-36); Mean Corpuscular Hgb 29.7 pg (27.0-32.0); Mean Corpuscular Volume 91.1 fL (81-99); Mean Platelet Vol. 10.7 fl (6.2-12.0); Monocyte# 0.39 X10^3/uL; Monocyte% 7.1 % (0-10); NRBC Flagged by Analyzer 0 % (0-5); Neutrophil # 3.47 X10^3/uL (2.7-7.7); Neutrophil % 63.2 % (47-70); Platelet Count 219 K/mm3 (150-450); RBC Distribution Width CV 11.7 % (11.6-14.6); Red Blood Count 5.05 M/mm3 (4.2-5.4); White Blood Count 5.5 K/mm3 (4.4-11.0)
[2022-11-22 13:23] LABS: ALB/GLOB Ratio 1.1 RATIO (0.9-2.4); AST(SGOT) 14 U/L (15-37); Alanine Aminotransfer ALT/SGPT 30 U/L (13-56); Albumin, Serum 3.8 g/dL (3.2-5.0); Alkaline Phosphatase 73 U/L (45-117); Anion Gap 6 (5-15); BUN 9 mg/dL (7-18); BUN/Creat Ratio 12.1 RATIO (10-20); Calcium,Total 9.2 mg/dL (8.5-10.1); Chloride 107 mmol/L (98-107); Cholesterol 207 mg/dL (200); Creatinine, Serum 0.74 mg/dL (0.55-1.02); EST Glomerular Filtration Rate 86 mL/min (>60); Est Glom Filt Rate - Afr Amer 104 mL/min (>60); Globulin 3.5 g/dL (2.2-4.2); Glucose 120 mg/dL (74-106); High Density Lipoprotein 35 mg/dL; Protein, Total 7.3 g/dL (6.4-8.2); Sodium Level 137 mmol/L (136-145); Thyroid Stim Hormone (TSH) 2.28 uIU/mL (0.358-3.74); Triglycerides 175 mg/dL; Very Low Density Lipoprotein 35 mg/dL (5-40)
== END | disposition home or self-care (01) ==
LOC: BIMLAB 11:10
PROVIDERS: PCP Internal Medicine; Visit Provider Internal Medicine
DX: E03.9 Hypothyroidism, unspecified (principal); E78.5 Hyperlipidemia, unspecified
CPT/HCPCS: 36415; 80053; 80061; 84443; 85025

== ENCOUNTER → 2022-12-21 | Outpatient (CLI) | payer BC, SELFPAY ==
--- NOTE | 2022-12-21 | EMB_PTH ---
PATIENT: CONNER LIM LOC: [facility] U#:[id number] AGE/SX: 57/F ROOM: RE12/21/[address]: RAUDEL Wilson : 1965 BED: DIS: 12/21/2022 SPEC #: [id number] RECD: 12/21/22 13:15 STATUS: NEHAL RESandeep #: [id number] BRANDY: 12/21/22 00:[address]: Marcella Johnson NP DEPT: SURGICAL PATHOLOGY RECD BY: Aubrey Sanchez ENTERED: 12/21/22 13:15 SP TYPE: ENDOM BX/C KENNY DR: Dr. Connor Cueva MD Tissues: Endometrium, NOS Procedures: Surgery Specimen Level IV HEADER OPERATION: Endometrial biopsy PRE-OP DIAGNOSIS: Postmenopausal bleeding TISSUE SUBMITTED: Endometrial tissue MICROSCOPIC DIAGNOSIS Endometrium, biopsy: Endometrial adenocarcinoma, endometrioid type, FIGO1. See comment. AM:mingo 12/28/2022 COMMENT This case was seen in consultation with Dr. Mendiola of [facility]. The complete consultative report is viewable in EMR. Case has been reviewed in consultation with Dr. Serra who concurs with the above diagnosis. IDC:[email or web address] MICROSCOPIC DESCRIPTION Slides are reviewed. GROSS DESCRIPTION Received in formalin is one container labeled with the patient name and designated endometrial tissue. The specimen consists of multiple elongated and irregular fragments of hemorrhagic tissue measuring in aggregate 5 x 3 x 0.2 cm. The specimen is totally submitted in two cassettes. / SJ: 12/21/22 TC:0 CPT: 81172
[2022-12-24 14:10] LABS: HPV APTIMA, High Risk Negative (Negative)
== END | disposition home or self-care (01) ==
LOC: LABSPEC 11:23
PROVIDERS: PCP Internal Medicine; Referring Provider Nurse Practitioner Women's Health; Visit Provider Nurse Practitioner Women's Health
DX: Z78.0 Asymptomatic menopausal state (principal)
CPT/HCPCS: 87624; 88175; 88305; G0145

== ENCOUNTER → 2022-12-30 | Outpatient (CLI) | payer BC, SELFPAY ==
--- NOTE | 2022-12-30 07:05 | BI_ITS ---
MAMMOGRAPHY - BILATERAL SCREENING 3-D TOMOSYNTHESIS REASON FOR EXAM: Female, 57 years old. Routine screening PERTINENT HISTORY: No significant family history. TECHNIQUE: 2-D mammograms and 3-D Tomosynthesis of the breast (s) were performed. CAD was performed. COMPARISON: 10/30/2021 FINDINGS: The breast composition is composed of scattered fibroglandular density. Scattered benign calcifications are seen. No dense spiculated masses or suspicious microcalcifications are identified. No architectural distortion is identified. There is no skin thickening or retraction. There has been no significant change since the prior study. BI/SCRN MAMM (CAD)W/LORI BILAT IMPRESSION: No mammographic signs of malignancy. Routine yearly mammograms recommended. ASSESSMENT CATEGORY: BIRADS Category 1: Negative. A letter regarding these results will be sent to the patient by the facility within 30 days. FOLLOW UP RECOMMENDATION: Yearly follow up mammogram recommended. (A) Approximately 10% of breast cancers are not detected by mammography. A normal mammogram should not delay biopsy of a clinically suspicious abnormality. Electronically Signed: Chuck Zaragoza MD at 9:09 EDT ,
--- NOTE | 2022-12-30 07:30 | US_ITS ---
INDICATION: bleeding EXAMINATION: Ultrasound US Pelvis Non OB Complete With Transvaginal Imaging TECHNIQUE: Transabdominal and transvaginal pelvic ultrasound was performed. Grayscale, spectral waveform, and color flow Doppler evaluation of the adnexa. COMPARISON: FINDINGS: UTERUS: Anteverted. The uterus measures 9.7 x 6.9 x 5.4 cm. Multiple lesions are noted in the uterus measuring 3.2 x 2.8 x 2.2 cm on the right, 3 x 2.5 x 2.8 cm on the left, and 1.8 x 1.3 x 1.3 cm midline posteriorly. The endometrial stripe measures 17 mm in AP diameter which is enlarged for patient postmenopausal status, and appears hyperechoic. RIGHT OVARY: Measures 1.4 x 2.2 x 1.7 cm. Non-enlarged, normal echogenicity. There is normal arterial inflow and venous outflow present in the right ovary. LEFT OVARY: Not visualized due to overlying bowel. FREE FLUID: None. US/Pelvic (Non ) IMPRESSION: Multiple lesions in the uterus likely represent fibroids. Follow-up recommended. Thickened hyperechoic endometrium. Short-term follow-up or direct visualization recommended. Electronically Signed: Garrick Levine, at 9:42 EDT ,
== END | disposition home or self-care (01) ==
LOC: US 07:04
PROVIDERS: PCP Internal Medicine; Referring Provider Internal Medicine; Visit Provider Internal Medicine
DX: Z12.31 Encounter for screening mammogram for malignant neoplasm of breast (principal); N95.0 Postmenopausal bleeding
CPT/HCPCS: 76830; 76856; 77063; 77067

== ENCOUNTER → 2023-11-23 | Outpatient (CLI) | payer BC, SELFPAY ==
[2023-11-23 12:35] LABS: Absolute Lymphocyte Count 1.63 X10^3/uL (0.83-4.51); Absolute Neutrophil Count 3.5 X10^3/uL (2.0-7.7); Basophil# 0.03 X10^3/uL; Basophil% 0.5 % (0-1); Eosinophil# 0.09 X10^3/uL; Eosinophils% 1.6 % (0-5); Hemoglobin 14.7 g/dL (12.0-15.0); Lymphocyte # 1.63 X10^3/ul (0.83-4.51); Lymphocyte % 28.8 % (19-41); Mean Corp Hgb Conc 32.7 g/dL (32-36); Mean Corpuscular Hgb 29.4 pg (27.0-32.0); Monocyte# 0.38 X10^3/uL; Monocyte% 6.7 % (0-10); NRBC Flagged by Analyzer 0 % (0-5); Neutrophil # 3.52 X10^3/uL (2.7-7.7); Neutrophil % 62.2 % (47-70); Platelet Count 211 K/mm3 (150-450); White Blood Count 5.7 K/mm3 (4.4-11.0)
[2023-11-23 13:35] LABS: ALB/GLOB Ratio 1.2 RATIO (0.9-2.4); AST(SGOT) 13 U/L (15-37); Alanine Aminotransfer ALT/SGPT 32 U/L (13-56); Albumin, Serum 3.8 g/dL (3.2-5.0); Alkaline Phosphatase 88 U/L (45-117); Anion Gap 6 (5-15); BUN 12 mg/dL (7-18); BUN/Creat Ratio 14.1 RATIO (10-20); Chloride 106 mmol/L (98-107); Cholesterol 206 mg/dL (200); Creatinine, Serum 0.85 mg/dL (0.55-1.02); EST Glomerular Filtration Rate 73 mL/min (>60); Est Glom Filt Rate - Afr Amer 89 mL/min (>60); Globulin 3.3 g/dL (2.2-4.2); Glucose 122 mg/dL (74-106); High Density Lipoprotein 34 mg/dL; Potassium 4.4 mmol/L (3.5-5.1); Protein, Total 7.1 g/dL (6.4-8.2); Sodium Level 138 mmol/L (136-145); Thyroid Stim Hormone (TSH) 5.35 uIU/mL (0.358-3.74); Triglycerides 192 mg/dL; Very Low Density Lipoprotein 38 mg/dL (5-40)
[2023-11-24 15:45] LABS: Hemoglobin A1c 6.1 % (3.8-5.6)
== END | disposition home or self-care (01) ==
LOC: BIMLAB 11:22
PROVIDERS: PCP Internal Medicine; Visit Provider Internal Medicine
DX: E03.9 Hypothyroidism, unspecified (principal); E78.5 Hyperlipidemia, unspecified; R73.9 Hyperglycemia, unspecified
CPT/HCPCS: 36415; 80053; 80061; 83036; 84443; 85025

== ENCOUNTER → 2024-01-04 | Outpatient (CLI) | payer BC, SELFPAY ==
--- NOTE | 2024-01-04 09:30 | BI_ITS ---
MAMMOGRAPHY - BILATERAL SCREENING REASON FOR EXAM: Female, 58 years old. Routine annual screening examination. PERTINENT HISTORY: Non-contributory. TECHNIQUE: Digital bilateral breast lori (3D mammographic acquisition) in the CC and MLO projections. 2-D mediolateral oblique (MLO) and craniocaudad (CC) views of both breasts were obtained. CAD: Full Field Digital Mammography with Computer Added Detection was performed. COMPARISON: Comparison is made with prior study dated December 30, 2022 and October 30, 2021. FINDINGS: Breast Composition: There are scattered areas of fibroglandular density. There are no dominant masses or suspicious calcifications. Stable small benign-appearing bilateral axillary lymph nodes. No other significant abnormalities are identified. There has been no significant change since the prior study. BI/SCRN MAMM (CAD)W/LORI BILAT IMPRESSION: Stable bilateral screening mammogram. Yearly follow-up mammogram recommended. (A) ASSESSMENT CATEGORY: BIRADS Category 2: Benign. A letter regarding these results will be sent to the patient by the facility within 30 days. Approximately 10% of breast cancers are not detected by mammography. A normal mammogram should not delay biopsy of a clinically suspicious abnormality. [id number] Electronically Signed: Yovanny Bob MD at 10:21 EDT ,
== END | disposition home or self-care (01) ==
LOC: OPBI 09:30
PROVIDERS: PCP Internal Medicine; Referring Provider Nurse Practitioner Women's Health; Visit Provider Nurse Practitioner Women's Health
DX: Z12.31 Encounter for screening mammogram for malignant neoplasm of breast (principal)
CPT/HCPCS: 77063; 77067

== ENCOUNTER → 2024-11-22 | Outpatient (CLI) | payer BC, SELFPAY ==
[2024-11-22 12:36] LABS: Absolute Lymphocyte Count 1.81 X10^3/uL (0.83-4.51); Absolute Neutrophil Count 4.4 X10^3/uL (2.0-7.7); Basophil# 0.05 X10^3/uL; Basophil% 0.7 % (0-1); Eosinophil# 0.09 X10^3/uL; Eosinophils% 1.3 % (0-5); Hematocrit 43.3 % (37-47); Hemoglobin 14.3 g/dL (12.0-15.0); Lymphocyte # 1.81 X10^3/ul (0.83-4.51); Lymphocyte % 26.7 % (19-41); Mean Corpuscular Hgb 30.1 pg (27.0-32.0); Mean Corpuscular Volume 91.2 fL (81-99); Mean Platelet Vol. 10.7 fl (6.2-12.0); Monocyte% 5.9 % (0-10); NRBC Flagged by Analyzer 0 % (0-5); Neutrophil % 65.1 % (47-70); Platelet Count 225 K/mm3 (150-450); RBC Distribution Width SD 40.2 fl (35.1-43.9); Red Blood Count 4.75 M/mm3 (4.2-5.4); White Blood Count 6.8 K/mm3 (4.4-11.0)
[2024-11-22 12:40] LABS: ALB/GLOB Ratio 1.7 RATIO (0.9-2.4); AST(SGOT) 19 U/L (<=31); Alanine Aminotransfer ALT/SGPT 29 U/L (<=34); Albumin, Serum 4.2 g/dL (3.5-5.0); Alkaline Phosphatase 80 U/L (35-104); Anion Gap 12 (5-15); BUN 13 mg/dL (4-19); BUN/Creat Ratio 17.6 RATIO (10-20); Carbon Dioxide 22.7 mmol/L (21.0-32.0); Chloride 104 mmol/L (98-108); Cholesterol 214 mg/dL (<=200); Creatinine, Serum 0.72 mg/dL (0.70-1.20); EST Glomerular Filtration Rate 98 (>60); Globulin 2.4 g/dL (2.2-4.2); Glucose 124 mg/dL (70-99); High Density Lipoprotein 31 mg/dL; Low Density Lipoprotein Calc. 146 mg/dL; Potassium 3.9 mmol/L (3.3-5.1); Protein, Total 6.6 g/dL (5.9-8.4); Sodium Level 139 mmol/L (133-145); Total Bilirubin 0.37 mg/dL (0.00-1.30); Triglycerides 181 mg/dL; Very Low Density Lipoprotein 36 mg/dL (5-40); cholesterol:hdl ratio screen 6.82
[2024-11-22 15:48] LABS: Hemoglobin A1c 6.6 % (<=5.6)
== END | disposition home or self-care (01) ==
LOC: BIMLAB 08:50
PROVIDERS: PCP Internal Medicine; Referring Provider Internal Medicine; Visit Provider Internal Medicine
DX: E03.9 Hypothyroidism, unspecified (principal); E78.5 Hyperlipidemia, unspecified; R73.9 Hyperglycemia, unspecified
CPT/HCPCS: 36415; 80053; 80061; 83036; 84443; 85025

== ENCOUNTER → 2025-01-07 | Outpatient (CLI) | payer BC, SELFPAY ==
--- NOTE | 2025-01-07 10:21 | BI_ITS ---
EXAM: SCRN MAMM (CAD)W/LORI BILAT DATE: 01/07/2025 CLINICAL HISTORY: F, Age 59 y/o , SCREENING FOR BREAST CANCER No family history. TECHNIQUE: SCRN MAMM (CAD)W/LORI BILAT COMPARISON: Prior exam(s) dated January 04 2024.. FINDINGS: TISSUE DENSITY: There are scattered areas of fibroglandular density. Bilateral Breast Mammographic Findings: No significant masses, calcifications or other abnormalities are identified. Stable small bilateral fat containing axillary lymph nodes. No suspicious masses, areas of developing architectural distortion, or suspicious calcifications. There has been no significant interval change. BI/SCRN MAMM (CAD)W/LORI BILAT IMPRESSION: Stable examination. OVERALL FINAL ASSESSMENT BI-RADS 2: BENIGN RECOMMENDATION: Routine annual follow-up in 1 Year A letter with findings and recommendations will be mailed to the patient. Reading Location: [id number]
--- OUTSIDE RECORDS SUMMARY | 2025-01-07 21:23 | XMS RPT_ITS | CCD ---
Author Organization [facility] CliniSyal Care Team Providers Care Business Applications Manager Name Role Phone Dr. Usha Cueva Primary Care Provider [phone] Dr. Usha Cueva Attending Provider [phone] Dr. Usha Cueva Referring Provider [phone] Dr. Usha Cueva Other Provider [phone] Dr. Supa Albarran Attending Provider Dr. Mio Mendoza Attending Provider [phone] Dr. Mio Mendoza Referring Provider [phone] Dr. Mio Mendoza Other Provider Dr. Usha Cueva Primary Care Provider [phone] Dr. Usha Cueva Referring Provider [phone] Hammad, Dr. Ryan Primary Care Provider [phone] Dr. Usha Cueva Attending Provider [phone] Dr. Usha Cueva Referring Provider [phone] Alex TAVERN KEEPER, TAVERN KEEPERAnnamarie Naranjo Attending Provider Bryan Cervantes MD Unavailable Usha Cueva Primary Care Provider Usha Cueva Primary Care Provider LUCRECIA SEBASTIAN Referring Unavailable USHA CUEVA Primary Care Unavailable BRYAN CERVANTES Attending Unavailable MYAH AYALA Referring Unavailable BRYAN CERVANTES Attending Unavailable HAMMAD, EFGABBYONGDIANE Primary Care Unavailable BRYAN CERVANTES Attending Unavailable BRYAN CERVANTES Admitting Unavailable OLEGHE, EFEWONGBE Primary Care Unavailable BRYAN CERVANTES Attending Unavailable Hammad KENNY, Dr. Ryan Primary Care Provider Hammad KENNY, Dr. Ryan Attending Provider [phone] Hammad KENNY, Dr. Ryan Referring Provider [phone] Alex TAVERN KEEPER-CMyah Attending Provider Alex TAVERN KEEPER, Myah Attending Unavailable Oleghe, Efewongbe Primary Care Unavailable Oleghe, Efewongbe Referring Unavailable Oleghe, Efewongbe Primary Care Unavailable Oleghe, Efewongbe Attending Unavailable Oleghe, Efewongbe Referring Unavailable Oleghe, Efewongbe Primary Care Unavailable Alex TAVERN KEEPER, Myah Attending Unavailable Alex TAVERN KEEPER, Myah Referring Unavailable Oleghe, Efewongbe Primary Care Unavailable Oleghe, Efewongbe Attending Unavailable Oleghe, Efewongbe Referring Unavailable Oleghe, Efewongbe Primary Care Unavailable Alex TAVERN KEEPERMyah Attending Unavailable Oleghe, Efewongbe Referring Unavailable Medications Current Medications Medication Drug Class(es) Dates Sig (Normalized) Sig (Original) acetaminophen 500 mg oral tablet (3 sources) Start: 01-06-2023 End: 01-16-2023 take 2 tablets by mouth every six hours acetaminophen (Tylenol Extra Strength) 500 MG tablet Take 2 tablets (1,000 mg) by mouth in the morning and 2 tablets (1,000 mg) at noon and 2 tablets (1,000 mg) in the evening and 2 tablets (1,000 mg) before bedtime. Do all this for 10 days. 80 tablet 0 01/06/2023 01/16/2023 Active Start: 01-06-2023 End: 01-06-2023 acetaminophen (Tylenol) tabl et 1,000 mg ascorbic acid 100 mg oral tablet (3 sources) Vitamin C take 1 tablet by mouth once daily Ascorbic Acid (vitamin C) 100 MG tablet Take 100 mg by mouth daily. 0 Active betamethasone 0.5 mg/ml / clotrimazole 10 mg/ml topical cream (13 sources) Azole Antifungal, Corticosteroid Start: Clotrimazole-Bet amethasone 1-0.05 % cream Active 1 NMA TOPICAL TWICE A DAY 45 14 December 10, 2024 12:00am Start: 06-20-2024 End: 11-21-2024 Clotrimazole-Betamethasone 1 -0.05 % cream Discontinued 1 NMA TOPICAL TWICE A DAY 45 14 June 20, 2024 1:00am November 21, 2024 10:19am Start: 12-21-2022 End: 11-23-2023 Clotrimazole-Betamethasone 1 -0.05 % cream Discontinued 1 NMA TOPICAL TWICE A DAY 45 14 December 21, 2022 12:00am November 23, 2023 10:38am Start: 12-21-2022 Clotrimazole-B etamethasone Active 1 APPLIC TOPICAL TWICE A DAY 45 14 December 21, 2022 12:00am calcium carbonate 800 mg / famotidine 10 mg / magnesium hydroxide 165 mg chewable tablet (20 sources) Histamine-2 Receptor Antagonist Start: 05-15-2019 Famotidine-Ca Carb-M ag Hydrox 10-800-165 mg tablet,chewable Active 1 {tbl} PO DAILY as needed for Heartburn May 15, 2019 11:06am Start: 05-15-2019 take 1 tablet by tay once daily Famotidine-Ca Carb-Mag Hydrox Active 1 TABLET PO DAILY May 15, 2019 11:06am Start: 05-17-2018 End: 05-15-2019 Famotidine-Ca Carb-Mag [place] x 1 EACH tablet,chewable Discontinued 1 NMA PO NEEDED as needed for Heartburn May 17, 2018 1:00am May 15, 2019 11:07am Start: 05-17-2018 End: 05-15-2019 Famotidine-Ca Carb-Mag [place] x Discontinued 1 EACH PO NEEDED May 17, 2018 1:00am May 15, 2019 11:07am ibuprofen 600 mg oral tablet (2 sources) Nonsteroidal Anti-inflammatory Drug Start: 01-06-2023 End: 01-16-2023 take 1 tablet by mouth every six hours ibuprofen 600 MG tablet Take 1 tablet (600 mg) by mouth in the morning and 1 tablet (600 mg) at noon and 1 tablet (600 mg) in the evening and 1 tablet (600 mg) before bedtime. Do all this for 10 days. 40 tablet 0 01/06/2023 01/16/2023 Active levothyroxine sodium 0.125 mg oral tablet (20 sources) l-Thyroxine Start: 11-23-2023 End: 08-07-2024 take 1 tablet by mouth once daily Levothyroxine 125 mcg tablet Active 125 ug PO DAILY 90 August 07, 2024 12:49pm THYROID Start: 05-15-2019 End: 11-23-2023 take 1 tablet by mouth once daily Levothyroxine 112 mcg tablet Discontinued 112 ug PO DAILY 90 May 16, 2023 11:57am November 23, 2023 5:39pm THYROID Start: 05-17-2018 End: 05-15-2019 take 1 tablet by mouth once daily Levothyroxine 100 mcg tablet Discontinued 100 ug PO DAILY 90 February 13, 2019 10:29am May 15, 2019 8:12pm THYROID levothyroxine (T irosint) 112 MCG capsule Take by mouth every morning (before breakfast). 0 Active multivitamin (Theragran) tablet (3 sources) take 1 tablet by mouth once daily multivitamin (Theragran) tablet Take 1 tablet by mouth daily. 0 Active ondansetron 4 mg disintegrating oral tablet (4 sources) Serotonin-3 Receptor Antagonist Start: 01-07-20 23 ondansetron ODT (Zofran-ODT) 4 MG disintegrating tablet Take 1 tablet (4 mg) by mouth every 12 hours as needed for nausea or vomiting for up to 5 doses. 5 tablet 0 01/06/2023 Active Start: 01-06-2023 End: 01-06-2023 ondansetron (Zofran) injecti on 4 mg oxyCODONE hydrochloride 5 mg oral tablet (17 sources) Opioid Agonist Start: 01-06-2023 End: 01-11-2023 take 1 tablet by mouth every four hours as needed for pain oxyCODONE (Roxicodone) 5 MG immediate release tablet Indications: Postoperative pain Take 1 tablet (5 mg) by mouth every 4 hours as needed for severe pain (7-10) for up to 5 days. 15 tablet 0 01/06/2023 01/11/2023 Active Start: 04-13-2022 End: 04-26-2022 take 5-10 mg by mouth every four hours as needed for pain Oxycodone 5 mg tablet Discontinued 5 - 10 mg PO Q4H as needed for pain 15 3 0 April 13, 2022 April 26, 2022 10:39am Other acute postprocedural pain Other acute postprocedural pain Start: 02-02-2022 End: 02-17-2022 take 1 tablet by mouth every four hours as needed for pain Oxycodone 5 mg tablet Discontinued 5 mg PO Q4H as needed for pain 10 5 0 February 02, 2022 February 17, 2022 10:50am Other acute postprocedural pain Other acute postprocedural pain polyethylene glycol 3350 26040 mg powder for oral solution (2 sources) Osmotic Laxative Start: 01-06-2023 End: 01-13-2023 polyethylene glycol, PEG, 3350 (Glycolax) 17 GM/SCOOP powder Take 17 g by mouth daily for 5 doses. 119 g 0 01/06/2023 01/13/2023 Active Completed/Discontinued Medications Medication Drug Class(es) Dates Sig (Normalized) Sig (Original) ALPRAZolam 0.25 mg disintegrating oral tablet (1 source) Benzodiazepine Start: 01-06-2023 End: 01-06-2023 ALPRAZolam (Xanax) disintegrating tablet 0.25 mg calcium chloride 0.0014 meq/ml / potassium chloride 0.004 meq/ml / sodium chloride 0.103 meq/ml / sodium lactate 0.028 meq/ml injectable solution (2 sources) Start: 01-06-2023 End: 01-06-2023 lactated ringers infusion Clotrimazole-Betameth Dip-Zinc (7 sources) Start: 06-07-2018 End: 10-07-2021 Clotrimazole-Betamet h Dip-Zinc Discontinued PKG TOPICAL June 07, 2018 11:31am October 07, 2021 10:03am Start: 06-07-2018 End: 10-07-2021 Clotrimazole-Betameth Dip-Zi nc Discontinued PKG TOPICAL June 07, 2018 1:00am October 07, 2021 10:03am Clotrimazole-Betameth Dip-Zi nc 1-0.05-20 % combo pack (4 sources) Start: 06-07-2018 End: 10-07-2021 Clotrimazole-Betameth Dip-Zi nc 1-0.05-20 % combo pack Discontinued NMA TOPICAL 0 June 07, 2018 1:00am October 07, 2021 10:03am Start: 06-07-2018 End: 10-07-2021 Clotrimazole-Betameth Dip-Zi nc 1-0.05-20 % combo pack Discontinued NMA TOPICAL June 07, 2018 1:00am October 07, 2021 10:03am Diclofenac Sodium (Pennsaid) 20 mg/gram /actuation(2 %) solution in metered-dose pump (6 sources) Start: 07-12-2022 End: 12-21-2022 Diclofenac Sodium (Pennsaid) 20 mg/gram /actuation(2 %) solution in metered-dose pump Discontinued 2 NMA TOPICAL TWICE A DAY July 12, 2022 1:00am December 21, 2022 8:28am Right knee pain Pes anserinus bursitis of right knee Osteoarthritis of right knee Pain in right knee Other bursitis of knee, right knee Unilateral primary osteoarthritis, right knee Pain Apply to single affected knee 2 times per day Start: 07-12-2022 End: 12-21-2022 Diclofenac Sodium (Pennsaid) 20 mg/gram /actuation(2 %) solution in metered-dose pump Discontinued 2 NMA TOPICAL TWICE A DAY July 12, 2022 1:00am December 21, 2022 8:28am Apply to single affected knee 2 times per day Start: 07-12-2022 End: 12-21-2022 Diclofenac Sodium (Pennsaid) 20 mg/gram /actuation(2 %) solution in metered-dose pump Discontinued 2 PUMP TOPICAL TWICE A DAY July 12, 2022 1:00am December 21, 2022 8:28am Apply to single affected knee 2 times per day Start: 07-12-2022 Diclofenac Sod ium (Pennsaid) 20 mg/gram /actuation(2 %) solution in metered-dose pump Active 2 PUMP TOPICAL TWICE A DAY July 12, 2022 1:00am Apply to single affected knee 2 times per day 1 ml diphenhydrAMINE hydrochloride 50 mg/ml cartridge (1 source) Histamine-1 Receptor Antagonist Start: 01-06-2023 End: 01-06-2023 diphenhydrAMINE (BENADryl) injection 12.5 mg famotidine 20 mg oral tablet (1 source) Histamine-2 Receptor Antagonist Start: 01-06-2023 End: 01-06-2023 famotidine (Pepcid) tablet 20 mg gabapentin 100 mg oral capsule (1 source) Anti-epileptic Agent Start: 01-06-2023 End: 01-06-2023 gabapentin (Neurontin) capsule 100 mg 1 ml HYDROmorphone hydrochloride 1 mg/ml cartridge (2 sources) Opioid Agonist Start: 01-06-2023 End: 01-06-2023 HYDROmorphone (Dilaudid) injection 0.5 mg Start: 01-06-2023 End: 01-06-2023 HYDROmorphone (Dilaudid) inj ection 0.25 mg labetalol (Normodyne,Trandate) injection 5 mg (1 source) Start: 01-06-2023 End: 01-06-2023 labetalol (Normodyne,Trandate) injection 5 mg 1 ml LORazepam 2 mg/ml injection (1 source) Benzodiazepine Start: 01-06-2023 End: 01-06-2023 LORazepam (Ativan) injection 0.5 mg meloxicam 15 mg oral tablet (12 sources) Nonsteroidal Anti-inflammatory Drug Start: 06-02-2022 End: 12-21-2022 take 1 tablet by mouth once daily Meloxicam 15 mg tablet Discontinued 15 mg PO DAILY 30 0 July 12, 2022 12:27pm December 21, 2022 8:29am Right knee pain Pain in right knee Pain Do not take in conjunction with other NSAIDs. Tylenol is okay. 1 ml meperidine hydrochloride 25 mg/ml cartridge (1 source) Opioid Agonist Start: 01-06-2023 End: 01-06-2023 meperidine (Demerol) injection 12.5 mg 5 ml sodium chloride 9 mg/ml injection (10 sources) Start: 01-06-2023 End: 01-06-2023 sodium chloride 0.9 % bolus 500 mL Start: 01-06-2023 End: 01-06-2023 sodium chloride 0.9 % infusi on Start: 01-06-2023 End: 01-06-2023 sodium chloride 0.9% (NS) fl us 10 mL Problems Problem Classification Problem Date Documented Date Episodic/Chronic Cancer of uterus (8 sources) Malignant neoplasm of endometrium of corpus uteri ; Translations: [Malignant neoplasm of endometrium] Onset: 12-31-2022 01-06-2023 Chronic Comment on above: 12/2022 helen montserrat Cervantes. Pelvic exams Q6mo X 5 yr Diabetes mellitus without complication (4 sources) Hyperglycemia; Translations: [Hyperglycemia, unspecified] 11-23-2023 Episodic Disorders of lipid metabolism (19 sources) Hyperlipidemia; Translations: [Hyperlipidemia, unspecified] Onset: 11-21-2024 Chronic Menopausal disorders (2 sources) Postmenopausal bleeding; Translations: [Postmenopausal bleeding] 12-21-2022 Chronic Mycoses (1 source) Candidiasis of skin and nail; Translations: [Candidiasis of skin and nails] 12-21-2022 Episodic Other connective tissue disease (11 sources) Pain in lower limb; Translations: [Pain in leg, unspecified] 05-29-2018 Episodic Other connective tissue disease (11 sources) Swelling of lower limb; Translations: [Other specified soft tissue disorders] 05-29-2018 Episodic Other diseases of veins and lymphatics (11 sources) Peripheral venous insufficiency; Translations: [Venous insufficiency (chronic) (peripheral)] 05-29-2018 Episodic Other nervous system disorders (11 sources) Carpal tunnel syndrome; Translations: [Carpal tunnel syndrome, bilateral upper limbs] 10-07-2021 Chronic Other nervous system disorders (6 sources) Carpal tunnel syndrome, bilateral upper limbs; Translations: [Carpal tunnel syndrome] Chronic Other nervous system disorders (11 sources) Acute postoperative pain; Translations: [Other acute postprocedural pain] Onset: 01-06-2023 02-02-2022 Episodic Other nervous system disorders (1 source) Postoperative pain ; Translations: [Other acute postprocedural pain] 01-06-2023 Episodic Other nervous system disorders (1 source) Other acute postprocedural pain; Translations: [Other acute postprocedural pain] Onset: 01-06-2023 Episodic Other non-traumatic joint disorders (14 sources) Pain in right knee; Translations: [Right knee pain] 06-02-2022 Episodic Other nutritional; endocrine; and metabolic disorders (6 sources) Morbid obesity; Translations: [Morbid (severe) obesity due to excess calories] 11-21-2024 Chronic Other screening for suspected conditions (not mental disorders or infectious disease) (5 sources) Encounter for screening for malignant neoplasm of cervix; Translations: [Screening for malignant neoplasms of cervix] Onset: 01-03-2025 12-21-2022 Episodic Other upper respiratory infections (6 sources) Recurrent upper respiratory tract infection ; Translations: [Acute upper respiratory infection, unspecified] 11-21-2024 Episodic Residual codes; unclassified (1 source) Postoperative state; Translations: [Other specified postprocedural states] 01-19-2023 Episodic Residual codes; unclassified (2 sources) Other specified postprocedural states; Translations: [Other specified postprocedural states] Onset: 01-21-2023 Episodic Thyroid disorders (20 sources) Hypothyroidism; Translations: [Hypothyroidism, unspecified] Onset: 11-28-2024 Chronic Unclassified (4 sources) Z00.00 - Encounter for general adult medical examination without abnormal findings Unclassified (7 sources) Encounter for screening for malignant neoplasm of colon; Translations: [Z12.11 - Encounter for screening for malignant neoplasm of colon] Unclassified (1 source) Encounter for health maintenance examination Varicose veins of lower extremity (11 sources) Venous varices; Translations: [Varicose veins of unspecified lower extremity with inflammation] 05-29-2018 Episodic Results Test Name Value Interpretation Reference Range Facility Gis Geographer Office Visit Reporton 12-10-2024 Gis Geographer Office Visit Report [facility] [address], [address] [place] [address] OFFICE VISIT Date of Service: 12/10/24 MR#: [id number] Acct: [id number] Name: CONNER JONES Christin Rep #: [id number] : 1965 Provider: RAUDEL chapa Age/Sex: 58/F [place] [facility] [place]: Signed Intake Vital Signs 06/20/24 11:02 11/21/24 10:21 12/10/24 09:23 12/10/24 09:27 Height 5 ft 10 in 5 ft 10 in 5 ft 10 in 5 ft 10 in Weight: 302 lb 300 lb 8 oz BMI 43.3 43.1 BP 114/60 128/78 H Blood Pressure Location Lt brachial Position Sitting Respiration 18 Pulse 74 Pulse Source Monitor Temp 97.0 F L Pulse Oximetry (%) 97 Oxygen Delivery Method room air Intake Visit Reasons: 6 M FU Chief Complaint: Annual/6mo f/u cancer Museum Tour Guide Required: No Is patient in pain?: No Allergies No Known Allergies Allergy (Verified 12/10/24 09:22) Medications ???Medication ???Instructions ???Recorded ???Confirmed ???Type famotidine-Ca carb-mag hydrox 10 1 tab PO DAILY PRN Heartburn 05/1512/10/24 History mg-800 mg-165 mg chewable tablet levothyroxine 125 mcg tablet 125 mcg PO DAILY THYROID #90 tabs 08/07/24 12/10/24 Rx clotrimazole-betamet hasone 1 1 applic topical BID 2 weeks #45 0 12/10/24 12/10/24 Rx %-0.05 % topical cream grams Is last menstrual period known: No Post menopausal: Yes Patient : No : No PFSH Medical History Colon cancer screening Morbid obesity Recurrent upper respiratory infection (URI) Blood glucose elevated Bilateral knee pain Wears glasses Post-menopausal Alcohol use Rash Thyroid disease Low iron Injury of back Gastric reflux Former smoker Hyperlipidemia Bilateral carpal tunnel syndrome Hypothyroid Surgical History H/O: hysterectomy History of carpal tunnel surgery of right wrist History of carpal tunnel surgery of left wrist History of ankle surgery History of vascular surgery Family History Father Heart disease Skin cancer Grandfather CVA (cerebral vascular accident) Grandmother Cancer Parkinson disease Social History adopted: No household members: other number of children: 0 current occupational status: employed current occupation: [employer] pets and animals: Yes pets and animals: dog(s) sexually active: No Smoking Status: Former smoker quit date: 06/13/08 Tobacco: How many years used: 25 how long ago did patient quit smokin alcohol intake: current alcohol intake frequency: a few times a month Alcohol type: beer substance use type: does not use caffeine: Yes (4) Type: carbonated beverages and coffee what type of physical activity do you participate in: none seatbelt use: always do you feel safe at home: Yes additional social history: Single HPI 6 M FU Details: CONNER JONES is a 58 year old who presents for annual exam. Does pelvic exam Q6 mo due to history of endometrial adenocarcinoma. Denies concerns today. Last PAP: no History of abnormal PAP: no Last mammogram: 12/2023 History of abnormal mammogram: no Colon cancer screening: consult tomorrow with Dr Berry Other preventative health care screenings: Hammad Female Reproductive History Questions: metorrhagia: No, sexually active: Yes, dyspareunia: No and PCB: No ROS Const Constitutional: Denies fatigue, weight gain or weight loss Cardio Card: Denies chest pain Resp Resp: Denies cough or dyspnea on exertion GI GI: Denies abdominal pain, bloating, change in stool character, constipation or vomiting : Reports as per HPI; Denies difficulty voiding, pelvic pain, urinary frequency, urinary incontinence, urinary urgency, vaginal discharge or vaginal pruritus Exam Const General: cooperative, healthy appearing, no acute distress and well developed Orientation: alert, oriented to person and oriented to place [facility] Head: normal to inspection Neck Neck: normal visual inspection Thyroid: thyroid normal Lymphatic: no lymphadenopathy noted Chest Breast inspection: normal inspection of the breasts and normal inspection of the axillae Breast palpation: normal palpation of the breasts, normal palpation of the axillae and no axillary lymphadenopathy Resp Effort Inspection: normal respiratory effort GI Palpation: soft, no masses and nontender Rectal Exam: deferred External Female Exam: normal external appearance and normal appearance of the urethra Urethra: normal appearance of the urethra and normal palpation Speculum Exam - Vagina: normal appearance of the vagina and normal vaginal discharge Speculum Exam - (more content not included)... Normal [facility] Absolute lymphocyte countOrd ered By: Usha Cueva on 11-22-2024 Lymphocytes Auto (Unsp spec) [#/Vol] 1.81 10*3/uL 0.83-4.51 [facility] Absolute neutrophil countOrd ered By: Usha Cueva on 11-22-2024 Neutrophils (Bld) [#/Vol] 4.4 10*3/uL 2.0-7.7 [facility] Anion gap in Serum or Plasma Ordered By: Trinityrey Cueva on 11-22-2024 Anion gap [Moles/Vol] 12 mmol/L 5- [facility] Automated lymphocyte count a s percentage of total leukocytesOrdered By: Trinityrey Gomesadamterell on 11-22-2024 Lymphocytes/100 WBC Auto (Unsp spec) 26.7 % - [facility] BUN/creatinine ratioOrdered By: gabbyrochesterdiane Eliseoadamterell on 11-22-2024 Urea nitrogen/Creatinine [Mass ratio] 17.6 mg/mg 10- [facility] Basophil percentageOrdered B y: Edelmiradiane Gomesmarco antonio on 11-22-2024 Basophils/100 WBC (Bld) 0.7 % 0- [facility] Bilirubin, totalOrdered By: Trinitygabbyjackelyndiane Gomesadamterell on 11-22-2024 Bilirubin [Mass/Vol] 0.37 mg/dL 0.00-1.30 [facility] CBC W/Diff, Automatedon 11-11 Absolute Lymph 1.81 X10 3/uL Normal 0.83-4.51 [facility] Comment on above: Performed By: #### L 100.0100, L500.4050, L500.4100, L501.9520 #### [facility] [address] [place], [address] Absolute Neut 4.4 X10 3/uL Normal 2.0-7.7 [facility] Comment on above: Performed By: #### L 100.0100, L500.4050, L500.4100, [id number] #### [facility] [address] [place], [address] Basophils/100 WBC (Bld) 0.7 % Normal 0-1 [facility] Comment on above: Performed By: #### L 100.0100, L500.4050, L500.4100, [id number] #### [facility] [address] [place], [address] Eosinophils/100 WBC (Bld) 1.3 % Normal 0-5 [facility] Comment on above: Performed By: #### L 100.0100, L500.4050, L500.4100, [id number] #### [facility] [address] [place], [address] Erythrocyte distribution width (RBC) [Ratio] 12.0 % Normal 11.6-14.6 [facility] Comment on above: Performed By: #### L 100.0100, L500.4050, L500.4100, [id number] #### [facility] [address] [place], [address] Hematocrit (Bld) [Volume fraction] 43.3 % Normal 37-47 [facility] Comment on above: Performed By: #### L 100.0100, L500.4050, L500.4100, [id number] #### [facility] [address] [place], [address] Hemoglobin (Bld) [Mass/Vol] 14.3 g/dL Normal 12.0-15.0 [facility] Comment on above: Performed By: #### L 100.0100, L500.4050, L500.4100, [id number] #### [facility] [address] [place], [address] IG% 0.300 Normal 0.0-0.9 [facility] Comment on above: Result Comment: IG% - Immature Granulocytes (promyelocytes, myelocytes and metamyelocytes) > 1% indicates that a LEFT SHIFT is Present. Performed By: #### L 100.0100, L500.4050, L500.4100, [id number] #### [facility] [address] [place], [address] Lymphocytes/100 WBC (Bld) 26.7 % Normal 19-41 [facility] Comment on above: Performed By: #### L 100.0100, L500.4050, L500.4100, [id number] #### [facility] [address] [place], [address] MCH (RBC) [Entitic mass] 30.1 pg Normal 27.0-32.0 [facility] Comment on above: Performed By: #### L 100.0100, L500.4050, L500.4100, [id number] #### [facility] [address] [place], [address] MCHC (RBC) [Mass/Vol] 33.0 g/dL Normal 32-36 [facility] Comment on above: Performed By: #### L 100.0100, L500.4050, L500.4100, [id number] #### [facility] [address] [place], [address] MCV (RBC) [Entitic vol] 91.2 fL Normal 81-99 [facility] Comment on above: Performed By: #### L 100.0100, L500.4050, L500.4100, [id number] #### [facility] [address] [place], [address] Monocytes/100 WBC (Bld) 5.9 % Normal 0-10 [facility] Comment on above: Performed By: #### L 100.0100, L500.4050, L500.4100, [id number] #### [facility] [address] [place], [address] Neutrophils/100 WBC (Bld) 65.1 % Normal 47-70 [facility] Comment on above: Performed By: #### L 100.0100, L500.4050, L500.4100, [id number] #### [facility] [address] [place], [address] Nucleated RBC (Bld) [#/Vol] 0 10*3/uL Normal 0-5 [facility] Comment on above: Performed By: #### L 100.0100, L500.4050, L500.4100, [id number] #### [facility] [address] [place], [address] Platelet mean volume (Bld) [Entitic vol] 10.7 fL Normal 6.2-12.0 [facility] Comment on above: Performed By: #### L 100.0100, L500.4050, L500.4100, L501.9520 #### [facility] [address] [place], [address] Platelets (Bld) [#/Vol] 225 10*3/uL Normal 150-450 [facility] Comment on above: Performed By: #### L 100.0100, L500.4050, L500.4100, L501.9520 #### [facility] [address] [place], [address] RBC (Bld) [#/Vol] 4.75 10*6/uL Normal 4.2-5.4 [facility] Comment on above: Performed By: #### L 100.0100, L500.4050, L500.4100, L501.9520 #### [facility] [address] [place], [address] RDW SD 40.2 fl Normal 35.1-43.9 [facility] Comment on above: Performed By: #### L 100.0100, L500.4050, L500.4100, L501.9520 #### [facility] [address] [place], [address] WBC (Bld) [#/Vol] 6.8 10*3/uL Normal 4.4-11.0 [facility] Comment on above: Performed By: #### L 100.0100, L500.4050, L500.4100, L501.9520 #### [facility] [address] [place], [address] Calculated very low density lipoprotein (VLDL) cholesterol measurementOrdered By: Usha Cueva on 11-22-2024 Calculated very low density lipoprotein (VLDL) cholesterol measurement 36 mg/dL 5-40 [facility] Carbon dioxide, total [Moles /volume] in Central venous bloodOrdered By: Usha Cueva on 11-22-2024 CO2 [Moles/Vol] 22.7 mmol/L 21.0-32.0 [facility] Chloride assayOrdered By: Trinity Cueva on 11-22-2024 Chloride [Moles/Vol] 104 mmol/L 98-108 [facility] Comprehensive Metabolic Prof ilon 11-22-2024 Albumin [Mass/Vol] 4.2 g/dL Normal 3.5-5.0 [facility] Comment on above: Performed By: #### L 100.0100, L500.4050, L500.4100, L501.9520 #### [facility] [address] [place], [address] Albumin/Globulin [Mass ratio] 1.7 {ratio} Normal 0.9-2.4 [facility] Comment on above: Performed By: #### L 100.0100, L500.4050, L500.4100, L501.9520 #### [facility] [address] [place], [address] ALK PHOS 80 U/L Normal 35-104 [facility] Comment on above: Performed By: #### L 100.0100, L500.4050, L500.4100, L501.9520 #### [facility] [address] [place], [address] ALT [Catalytic activity/Vol] 29 U/L Normal <=34 [facility] Comment on above: Performed By: #### L 100.0100, L500.4050, L500.4100, L501.9520 #### [facility] [address] [place], [address] AST [Catalytic activity/Vol] 19 U/L Normal <=31 [facility] Comment on above: Performed By: #### L 100.0100, L500.4050, L500.4100, L501.9520 #### [facility] [address] [place], [address] Bilirubin [Mass/Vol] 0.37 mg/dL Normal 0.00-1.30 [facility] Comment on above: Performed By: #### L 100.0100, L500.4050, L500.4100, L501.9520 #### [facility] [address] [place], [address] BUN/CRE 17.6 RATIO Normal 10-20 [facility] Comment on above: Performed By: #### L 100.0100, L500.4050, L500.4100, L501.9520 #### [facility] [address] [place], [address] Calcium [Mass/Vol] 9.0 mg/dL Normal 7.6-11.0 [facility] Comment on above: Performed By: #### L 100.0100, L500.4050, L500.4100, L501.9520 #### [facility] [address] [place], [address] Chloride [Moles/Vol] 104 mmol/L Normal 98-108 [facility] Comment on above: Performed By: #### L 100.0100, L500.4050, L500.4100, L501.9520 #### [facility] [address] [place], [address] CO2 [Moles/Vol] 22.7 mmol/L Normal 21.0-32.0 [facility] Comment on above: Performed By: #### L 100.0100, L500.4050, L500.4100, L501.9520 #### [facility] [address] [place], [address] Creatinine [Mass/Vol] 0.72 mg/dL Normal 0.70-1.20 [facility] Comment on above: Performed By: #### L 100.0100, L500.4050, L500.4100, L501.9520 #### [facility] [address] [place], [address] GAP 12 Normal 5-15 [facility] Comment on above: Performed By: #### L 100.0100, L500.4050, L500.4100, L501.9520 #### [facility] [address] [place], [address] GFR/1.73 sq M.predicted among non-blacks MDRD (S/P/Bld) [Vol rate/Area] 98 mL/min/{1.73_m2} Normal >60 [facility] Comment on above: Result Comment: mL/m in/1.73m2 CKD-EPI Creatinine Equation (2020) Performed By: #### L 100.0100, L500.4050, L500.4100, L501.9520 #### [facility] [address] [place], [address] Globulin (S) [Mass/Vol] 2.4 g/dL Normal 2.2-4.2 [facility] Comment on above: Performed By: #### L 100.0100, L500.4050, L500.4100, L501.9520 #### [facility] [address] [place], [address] Glucose [Mass/Vol] 124 mg/dL High 70-99 [facility] Comment on above: Performed By: #### L 100.0100, L500.4050, L500.4100, L501.9520 #### [facility] [address] [place], [address] Potassium [Moles/Vol] 3.9 mmol/L Normal 3.3-5.1 [facility] Comment on above: Performed By: #### L 100.0100, L500.4050, L500.4100, L501.9520 #### [facility] [address] [place], [address] Sodium [Moles/Vol] 139 mmol/L Normal 133-145 [facility] Comment on above: Performed By: #### L 100.0100, L500.4050, L500.4100, L501.9520 #### [facility] [address] [place], [address] T PROT 6.6 g/dL Normal 5.9-8.4 [facility] Comment on above: Performed By: #### L 100.0100, L500.4050, L500.4100, L501.9520 #### [facility] [address] [place], [address] Urea nitrogen [Mass/Vol] 13 mg/dL Normal 4-19 [facility] Comment on above: Performed By: #### L 100.0100, L500.4050, L500.4100, L501.9520 #### [facility] [address] [place], [address] Eosinophil percentageOrdered By: Usha Cueva on 11-22-2024 Eosinophils/100 WBC (Bld) 1.3 % 0-5 [facility] Erythrocyte distribution wid th ratioOrdered By: Usha Cueva on 11-22-2024 Erythrocyte distribution width (RBC) [Ratio] 12.0 % 11.6-14.6 [facility] Erythrocyte distribution wid th standard deviationOrdered By: Usha Cueva on 11-22-2024 Erythrocyte distribution width (RBC) [Ratio] 40.2 fl 35.1-43.9 [facility] Glomerular filtration rate ( GFR) estimation/1.73 sq m using serum, plasma, or whole bOrdered By: Usha Cueva on 11-22-2024 GFR/1.73 sq M.predicted among non-blacks MDRD (S/P/Bld) [Vol rate/Area] 98 mL/min/{1.73_m2} >60 [facility] Comment on above: mL/min/1.73m2 CKD-EP I Creatinine Equation (2020) Hematocrit Auto (Bld) [Volum e fraction]Ordered By: Usha Cueva on 11-22-2024 Hematocrit (Bld) [Volume fraction] 43.3 % 37-47 [facility] Hemoglobin A1con 11-22-2024 HbA1c (Bld) [Mass fraction] 6.6 % High <=5.6 [facility] Comment on above: Order Comment: ADD O N Result Comment: Norm al < 5.7 % Prediabetic 5.7 - 6.4 % Diabetic >or= 6.5 % Please note range changes. Performed By: #### L 501.9985 #### [facility] [address] [place] [address], [address] Hemoglobin A1c percentageOrd ered By: Usha Cueva on 11-22-2024 HbA1c (Bld) [Mass fraction] 6.6 % High <5.7 [facility] Comment on above: Normal < 5.7 % Predi abetic 5.7 - 6.4 % Diabetic >or= 6.5 % Please note range changes. Hemoglobin measurementOrdere d By: Usha Cueva on 11-22-2024 Hemoglobin (Bld) [Mass/Vol] 14.3 g/dL 12.0-15.0 [facility] Immature granulocytes/100 WB C Auto (Bld)Ordered By: Usha Cueva on 11-22-2024 Immature granulocytes/100 WBC (Bld) 0.300 % 0.0-0.9 [facility] Comment on above: IG% - Immature Granu locytes (promyelocytes, myelocytes and metamyelocytes) > 1% indicates that a LEFT SHIFT is Present. LDL calc ser/plasOrdered By: Usha Cueva on 11-22-2024 Cholesterol in LDL [Mass/Vol] 146 mg/dL [facility] Comment on above: Zkfgnxqsmo=980-739 m g/dL & Higher Lpww=870 mg/dL or greater Laboratory - Chemistry and C hemistry - challengeOrdered By: Usha Cueva on 11-22-2024 AST [Catalytic activity/Vol] 19 U/L <32 [facility] Lipid Profileon 11-22-2024 CHOL:HDL 6.82 Normal [facility] Comment on above: Performed By: #### L 100.0100, L500.4050, L500.4100, L501.9520 #### [facility] [address] [place], [address] Cholesterol [Mass/Vol] 214 mg/dL High <=200 [facility] Comment on above: Result Comment: Chol esterol level, Desirable <200 mg/dL Borderline high cholesterol 200-239 mg/dL High cholesterol >=240 mg/dL Recommendations of the NCEP Adult Treatment Panel for the following risk-cutoff thresholds for the [place] population. Performed By: #### L 100.0100, L500.4050, L500.4100, L501.9520 #### [facility] [address] [place], [address] Cholesterol in HDL [Mass/Vol] 31 mg/dL Low [facility] Comment on above: Result Comment: Felecia onal Cholesterol Education Program (NCEP) guidelines: <40 mg/dL: Low HDL-cholesterol (major risk factor for CHD) >= 60 mg/dL: High HDL-cholesterol (negative risk factor for CHD) HDL-cholesterol is affected by a number of factors, e.g. smoking, exercise, hormones, sex and age. Performed By: #### L 100.0100, L500.4050, L500.4100, L501.9520 #### [facility] [address] [place], [address] Cholesterol in LDL [Mass/Vol] 146 mg/dL Normal [facility] Comment on above: Result Comment: Bord lsvfux=513-017 mg/dL Higher Zdap=645 mg/dL or greater Performed By: #### L 100.0100, L500.4050, L500.4100, L501.9520 #### [facility] [address] [place], [address] Cholesterol in VLDL [Mass/Vol] 36 mg/dL Normal 5-40 [facility] Comment on above: Performed By: #### L 100.0100, L500.4050, L500.4100, L501.9520 #### [facility] [address] [place], [address] Triglyceride [Mass/Vol] 181 mg/dL Normal [facility] Comment on above: Result Comment: The drugs N-Acetylcysteine and Metamizole may falsely depress this assay. Normal range: <150 mg/dL Borderline High: 150-199 mg/dL High: 200-499 mg/dL Very High: >500 mg/dL Performed By: #### L 100.0100, L500.4050, L500.4100, L501.9520 #### [facility] [address] [place], [address] MCV (mean corpuscular volume ) determinationOrdered By: Usha Cueva on 11-22-2024 MCV (RBC) [Entitic vol] 91.2 fL 81-99 [facility] Mean corpuscular hemoglobin (MCH) determinationOrdered By: Usha Cueva on 11-22-2024 MCH (RBC) [Entitic mass] 30.1 pg 27.0-32.0 [facility] Mean corpuscular hemoglobin concentration (MCHC) determinationOrdered By: Usha Cueva on 11-22-2024 MCHC (RBC) [Mass/Vol] 33.0 g/dL 32-36 [facility] Mean platelet volume determi nationOrdered By: Usha Cueva on 11-22-2024 Platelet mean volume (Bld) [Entitic vol] 10.7 fL 6.2-12.0 [facility] Monocyte percentageOrdered B y: Usha Cueva on 11-22-2024 Monocytes/100 WBC (Bld) 5.9 % 0-10 [facility] Neutrophil percentageOrdered By: Usha Cueva on 11-22-2024 Neutrophils/100 WBC (Bld) 65.1 % 47-70 [facility] Nucleated red blood cell per centageOrdered By: Usha Cueva on 11-22-2024 Nucleated RBC/100 WBC (Bld) [Ratio] 0 % 0-5 [facility] Platelet countOrdered By: Trinity Cueva on 11-22-2024 Platelets (Bld) [#/Vol] 225 10*3/uL 150-450 [facility] Potassium measurement (mass/ volume)Ordered By: Usha Cueva on 11-22-2024 Potassium (Unsp spec) [Mass/Vol] 3.9 mmol/L 3.3-5.1 [facility] RBC Auto (Bld) [#/Vol]Ordere d By: Usha Cueva on 11-22-2024 RBC (Bld) [#/Vol] 4.75 10*6/uL 4.2-5.4 [facility] Screening total cholesterol/ high density lipoprotein (HDL) cholesterol ratioOrdered By: Usha Cueva on 11-22-2024 Cholesterol.total/Choles terol in HDL [Mass ratio] 6.82 {ratio} [facility] Serum creatinine measurement (mass/volume)Ordered By: Usha Cueva on 11-22-2024 Creatinine [Mass/Vol] 0.72 mg/dL 0.70-1.20 [facility] Serum globulin measurementOr dered By: Usha Cueva on 11-22-2024 Globulin (S) [Mass/Vol] 2.4 g/dL 2.2-4.2 [facility] Serum glucose measurement (m ass/volume)Ordered By: Usha Cueva on 11-22-2024 Glucose [Mass/Vol] 124 mg/dL High 70-99 [facility] Serum or plasma alanine lucia otransferase (ALT) measurementOrdered By: Trinityrey Cueva on 11-22-2024 ALT [Catalytic activity/Vol] 29 U/L <35 [facility] Serum or plasma albumin lorie urement (mass/volume)Ordered By: rey Gomesterell on 11-22-2024 Albumin [Mass/Vol] 4.2 g/dL 3.5-5.0 [facility] Serum or plasma albumin/glob ulin mass ratioOrdered By: [facility] Eliseoterell on 11-22-2024 Albumin/Globulin [Mass ratio] 1.7 {ratio} 0.9-2.4 [facility] Serum or plasma alkaline marianna sphatase measurementOrdered By: [facility] 11-22-2024 ALP [Catalytic activity/Vol] 80 U/L 35-104 [facility] Serum or plasma calcium lorie urement (mass/volume)Ordered By: [facility] Eliseoterell 11-22-2024 Calcium [Mass/Vol] 9.0 mg/dL 7.6-11.0 [facility] Serum or plasma cholesterol in HDL measurement (mass/volume)Ordered By: [facility] 11-22-2024 Cholesterol in HDL [Mass/Vol] 31 mg/dL Low >40 [facility] Comment on above: National Cholesterol Education Program (NCEP) guidelines:<40 mg/dL: Low HDL-cholesterol (major risk factor for CHD)>= 60 mg/dL: High HDL-cholesterol (negative risk factor for CHD)HDL-cholesterol is affected by a number of factors, e.g. smoking, exercise, hormones, sex and age. Serum or plasma cholesterol measurement (mass/volume)Ordered By: Usha Cueva 11-22-2024 Cholesterol [Mass/Vol] 214 mg/dL High <201 [facility] Comment on above: Cholesterol level, D esirable <200 mg/dLBorderline high cholesterol 200-239 mg/dLHigh cholesterol >=240 mg/dLRecommendations of the NCEP Adult Treatment Panel for the following risk-cutoff thresholds for the [place] population. Serum or plasma urea nitroge n measurement (mass/volume)Ordered By: Usha Gomesterell 11-22-2024 Urea nitrogen [Mass/Vol] 13 mg/dL 4-19 [facility] Sodium levelOrdered By: Betty handy Hammad on 11-22-2024 Sodium [Moles/Vol] 139 mmol/L 133-145 [facility] TSH DL <= 0.005 mIU/L QnOrde red By: Usha Cueva on 11-22-2024 TSH Qn 12.600 uIU/mL High 0.300-4.200 [facility] Thyroid Stim Hormone (TSH)on 11-22-2024 TSH 12.600 uIU/mL High 0.300-4.200 [facility] Comment on above: Performed By: #### L 100.0100, L500.4050, L500.4100, L501.9520 #### [facility] [address] [place], [place], [address] Total proteinOrdered By: Itz joneldiane Cueva on 11-22-2024 Protein [Mass/Vol] 6.6 g/dL 5.9-8.4 [facility] Triglycerides measurementOrd ered By: Usha Cueva on 11-22-2024 Triglyceride [Mass/Vol] 181 mg/dL <199 [facility] Comment on above: The drugs N-Acetylcy steine and Metamizole may falsely depress this assay. Normal range: <150 mg/dLBorderline High: 150-199 mg/dLHigh: 200-499 mg/dLVery High: >500 mg/dL White blood cell (WBC) count Ordered By: Usha Cueva on 11-22-2024 WBC (Bld) [#/Vol] 6.8 10*3/uL 4.4-11.0 [facility] Internal Medicine Office Vis iton 11-21-2024 Internal Medicine Office Visit [facility] [address] [place] [address] [address] [place], [place] [address] OFFICE VISIT Date of Service: 11/21/24 MR#: [id number] Acct: [id number] Name: CONNER JONES Rep #: [id number] : 1965 Provider: Dr. Usha bey MD Age/Sex: 58/F Location: [facility] Status: Signed Intake Vital Signs 11/23/23 10:41 06/20/24 11:15 11/21/24 10:21 Height 5 ft 10 in 5 ft 10 in 5 ft 10 in Weight: 302 lb BMI 43.3 BP 114/60 Blood Pressure Location Lt brachial Position Sitting Respiration 18 Pulse 74 Pulse Source Monitor Temp 97.0 F L Temp Source Temporal Pulse Oximetry (%) 97 Oxygen Delivery Method room air Intake Visit Reasons: 1 YR Chief Complaint: 1 YR Is patient in pain?: Yes (3 left knee ) Allergies No Known Allergies Allergy (Verified 11/21/24 10:18) Medications ???Medication ???Instructions ???Recorded ???Confirmed ???Type famotidine-Ca carb-mag hydrox 10 1 tab PO DAILY PRN Heartburn 05/1511/21/24 History mg-800 mg-165 mg chewable tablet levothyroxine 125 mcg tablet 125 mcg PO DAILY THYROID #90 tabs 08/07/24 11/21/24 Rx Have you fallen in the past year?: No PFSH Medical History (Updated 11/22/24 @ 11:[address] Usha Cueva MD) Colon cancer screening Morbid obesity Recurrent upper respiratory infection (URI) Health care maintenance Blood glucose elevated Bilateral knee pain Wears glasses Post-menopausal Alcohol use Rash Thyroid disease Low iron Injury of back Gastric reflux Former smoker Hyperlipidemia Bilateral carpal tunnel syndrome Hypothyroid Surgical History H/O: hysterectomy History of carpal tunnel surgery of right wrist History of carpal tunnel surgery of left wrist History of ankle surgery History of vascular surgery Family History Father Heart disease Skin cancer Grandfather CVA (cerebral vascular accident) Grandmother Cancer Parkinson disease Social History adopted: No household members: other number of children: 0 current occupational status: employed current occupation: [employer] pets and animals: Yes pets and animals: dog(s) sexually active: No Smoking Status: Former smoker quit date: 06/13/08 Tobacco: How many years used: 25 how long ago did patient quit smokin alcohol intake: current alcohol intake frequency: a few times a month Alcohol type: beer substance use type: does not use caffeine: Yes (4) Type: carbonated beverages and coffee what type of physical activity do you participate in: none seatbelt use: always do you feel safe at home: Yes additional social history: Single HPI HPI Chief Complaint: 1 YR Details: CONNER JONES, is a 58 F who presents to the office today for her. Also has some concerns. Since , she states that she has had recurrent episodes of upper respiratory infection. Typically resolves with ufpi-ggh-[id number] measures. Currently at a BMI of 43.3. Admits that she really has not tried anything to help with weight loss. History of severe sleep apnea as well. No known personal or family history of pancreatitis, pancreatic or thyroid cancer. History of hypothyroidism on levothyroxine. Taking her medication as prescribed. No heat or cold intolerance or unintentional weight changes. Feels well. ROS Const Constitutional: No body ache, chills, excessive sweating, fatigue, fever(s), frequent falls, headache(s), snoring, weight change, sleep problems, abnormal sleep pattern or change in appetite Eyes Eyes: No blurry vision, change in vision, floaters, visual disturbances, eye pain or Light sensitivity ENT ENT: No abnormal hearing, ear or mastoid pain, tinnitus, balance problems, nosebleed/epistaxis, nasal congestion, headache(s), neck pain or sore throat Resp Respiratory: No cough, excessive phlegm production, pain on inspiration, shortness of breath, snoring or wheezing Cardio Cardiology: No chest pain at rest, chest pain with exertion, excessive sweating, shortness of breath, dyspnea on exertion, lightheadedness, orthopnea or palpitations Gastro GI: No abdominal pain, change in bowel habits, constipation, cramping, diarrhea, nausea/dyspepsia or vomiting Genitourinary-Female : No burning urination, painful urination, urinary incontinence, urinary frequency, suprapubic fullness, side pain, abnormal vaginal bleeding or pelvic pain Musc Musculoskeletal: No abnormal gait, joint pain, back pain, limited range of motion, neck pain, numbness or tingling Skin Skin: No dry skin, redness, excessive hair growth, yellowing of the eye, lesions, itchy eyes, rash or wounds Neuro Neurology: No abnorma (more content not included)... Normal [facility] Gis Geographer Office Visit Reporton 06-20-2024 Gis Geographer Office Visit Report [place] [facility] [address], [address] [place] [address] OFFICE VISIT Date of Service: 06/20/24 MR#: [id number] Acct: [id number] Name: CONNER JONES Rep #: [id number] : 1965 Provider: RAUDEL chapa Age/Sex: 58/F [place] [facility] [place]: Signed Intake Vital Signs 01/04/24 09:09 06/20/24 11:02 Height 5 ft 10 in 5 ft 10 in Weight: 302 lb 6 oz BMI 43.4 BP 114/72 Intake Visit Reasons: Annual (FR[employer]ER) Allergies No Known Allergies Allergy (Verified 06/20/24 11:01) Medications ???Medication ???Instructions ???Recorded ???Confirmed ???Type famotidine-Ca carb-mag hydrox 10 1 tab PO DAILY PRN Heartburn 05/15/19 06/20/24 History mg-800 mg-165 mg chewable tablet levothyroxine 125 mcg tablet 125 mcg PO DAILY THYROID #90 tabs 11/23/23 06/20/24 Rx clotrimazole-betamet hasone 1 1 applic topical BID 2 weeks #45 06/20/24 06/20/24 Rx %-0.05 % topical cream grams PFSH Medical History Blood glucose elevated Bilateral knee pain Wears glasses Post-menopausal Alcohol use Rash Thyroid disease Low iron Injury of back Gastric reflux Former smoker Hyperlipidemia Bilateral carpal tunnel syndrome Hypothyroid Surgical History H/O: hysterectomy History of carpal tunnel surgery of right wrist History of carpal tunnel surgery of left wrist History of ankle surgery History of vascular surgery Family History Father Heart disease Skin cancer Grandfather CVA (cerebral vascular accident) Grandmother Cancer Parkinson disease Social History adopted: No household members: other number of children: 0 current occupational status: employed current occupation: [employer] pets and animals: Yes pets and animals: dog(s) sexually active: No Smoking Status: Former smoker quit date: 06/13/08 Tobacco: How many years used: 25 how long ago did patient quit smokin alcohol intake: current alcohol intake frequency: a few times a month Alcohol type: beer substance use type: does not use caffeine: Yes (4) Type: carbonated beverages and coffee what type of physical activity do you participate in: none seatbelt use: always do you feel safe at home: Yes additional social history: Single HPI Encounter for routine gynecological examination Details: CONNER JONES is a 58 year old who presents for 6 month follow up pelvic exam due to history of endometrial andenocarcinoma. She is also having rash and itching in groin X 2-3 days. ROS Const Constitutional: Reports system reviewed and no additional complaints, except as documented Eyes Eyes: Reports system reviewed and no additional complaints, except as documented GI GI: Denies abdominal pain or change in bowel habits : Reports as per HPI Exam Const General: cooperative and no acute distress Nutritional Appearance: obese Orientation: oriented x3 Resp Effort Inspection: normal respiratory effort External Female Exam: normal appearance of the urethra and erythema (raised rash bilateral groin to vulva) Urethra: normal appearance of the urethra Speculum Exam - Vagina: normal appearance of the vagina Speculum Exam - Cervix: absent Bimanual Exam- Vagina Uterus: uterus absent Bimanual Exam- Adnexa, other: normal adnexae, no masses and non-tender Coding Level of Care Code Off vis,est,level 3 Diagnoses Adenocarcinoma of endometrium C54.1 Monilial intertrigo B37.2 Assessment and Plan Assessment and Plan (1) Adenocarcinoma of endometrium: Status: Acute Comment: 12/2022 robotic montserrat Cervantes. Pelvic exams Q6mo X 5 yr (2) Monilial intertrigo: Medications: New clotrimazole-betamet hasone 1-0.05 % 1 applic topical BID 45 grams 1RF 2 weeks Plan Normal pelvic exam Rx lotrisone cream RTO 6 mo annual exam, prn 06/20/24 1115 Date Myah Ayala TAVERN KEEPER TAVERN KEEPER-C Cosigner Signature: Date (if applicable) CC: Normal [facility] Office Visiton 01-21-2023 Follow-up visit [id number] Conner Jones 1965 F Date Provider Department Center 01/21/2023 [id number] CERVANTES [facility] [employer]ER None Family History Problem Relation Age of Onset Skin cancer Father Heart disease Father Cancer Paternal Grandmother Other Paternal Grandfather Comments: cerebral vascular accident Family Status - Relation Status Age at Father Paternal Grandmother Paternal Grandfather Level of Service:99128 [place] POSTOP FOLLOW UP VISIT RELATED TO ORIGINAL PX Reason for Visit and Comments: Post-op Visit [559] [facility] Progress Noteon 01-21-2023 Progress Note Postop visit Patient referred by Dr. Lucrecia Sebastian from [place] for endometrial cancer. Underwent robotic hysterectomy BSO lymph node sampling A. UTERUS WITH BILATERAL ADNEXA, HYSTERECTOMY WITH BILATERAL SALPINGO-OOPHORECTOM Y - UTERUS (170 G) WITH ENDOMETRIOID ADENOCARCINOMA (FIGO GRADE 1). UNREMARKABLE CERVIX LEIOMYOMATA BILATERAL UNREMARKABLE OVARIES WITH CORPORA ALBICANTIA BILATERAL UNREMARKABLE FALLOPIAN TUBES WITH RIGHT PARATUBAL CYSTS B. SENTINEL LYMPH NODE, RIGHT PELVIC, BIOPSY - AT LEAST TWO LYMPH NODES, NEGATIVE FOR METASTATIC CARCINOMA (0/2). C. SENTINEL LYMPH NODE, LEFT PELVIC, BIOPSY - ONE LYMPH NODE, NEGATIVE FOR METASTATIC CARCINOMA (0/1). at 1525 Comment MMR testing is pending with results to follow. Synoptic Checklist ENDOMETRIUM 8th Edition - Protocol posted: 05/26/2022 ENDOMETRIUM: HYSTERECTOMY - All Specimens SPECIMEN Procedure Total hysterectomy and bilateral salpingo-oophorectom y Specimen Integrity Opened TUMOR Tumor Site Endometrium Tumor Size Greatest Dimension (Centimeters): 2.5 cm Histologic Type Endometrioid carcinoma, NOS Histologic Grade FIGO grade 1 Two-Tier Grading System Low grade (encompassing FIGO 1 and 2) Myometrial Invasion Present Depth of Myometrial Invasion 1 mm Myometrial Thickness 20 mm Percentage of Myometrial Invasion Estimated to be less than 50% Adenomyosis Not identified Uterine Serosa Involvement Not identified Lower Uterine Segment Involvement Not identified Cervical Stromal Involvement Not identified Other Tissue / Organ Involvement Not identified Peritoneal / Ascitic Fluid Not submitted / unknown Lymphatic and / or Vascular Invasion Not identified REGIONAL LYMPH NODES Regional Lymph Node Status All regional lymph nodes negative for tumor cells Lymph Nodes Examined Total Number of Pelvic Nodes Examined At least: 3 Number of Pelvic [place] Nodes Examined At least: 3 Total Number of Para-aortic Nodes Examined 0 pTNM CLASSIFICATION (AJCC 8th Edition) Reporting of pT, pN, and (when applicable) pM categories is based on information available to the pathologist at the time the report is issued. As per the AJCC (Chapter 1, 8th Ed.) it is the managing physician's responsibility to establish the final pathologic stage based upon all pertinent information, including but potentially not limited to this pathology report. pT Category pT1a pN Category pN0 N Suffix (sn) FIGO STAGE FIGO Stage IA Mismatch repair genes were intact. On exam the incisions of healed nicely A) stage Ia grade 1 endometrial cancer, low risk for disease recurrence. P) recommend follow-up every 6 months for 5 years and annually thereafter with Dr. Lucrecia Sebastian's office. Normal [facility] 36on 01-07-2023 36 Called with paTH Normal [facility] Blood type and Crossmatch pa vashti (Bld)on 01-06-2023 Blood group antibody screen GEL Ql Negative [facility] CBC panel Auto (Bld)on 01-06 Erythrocyte distribution width (RBC) [Ratio] 12.5 % 11.5 - 14.5 % [facility] Hematocrit (Bld) [Volume fraction] 43.3 % 35.0 - 47.0 % [facility] Hemoglobin (Bld) [Mass/Vol] 14.6 g/dL 11.7 - 16.0 g/dL [facility] Interpretation and review of laboratory results Normal [facility] MCH (RBC) [Entitic mass] 29.9 pg 26. 0 - 34.0 pg [facility] MCHC (RBC) [Mass/Vol] 33.8 % 32.0 - 36.0 % [facility] MCV (RBC) [Entitic vol] 88.6 fL 80.0 - 98.0 fL [facility] Platelet mean volume (Bld) [Entitic vol] 8.7 fL 7.4 - 12.4 fL [facility] Platelets (Bld) [#/Vol] 210 10*3/uL 140 - 440 10*3/uL [facility] RBC (Bld) [#/Vol] 4.88 10*6/uL 3.8 - 5.20 10*6/uL [facility] WBC (Bld) [#/Vol] 7.0 10*3/uL 3.6 - 10.7 10*3/uL [facility] Laboratory - Blood bankon ABO group Nom (Bld) B [facility] D Ag Ql (RBC) Positive [facility] No Panel Informationon 01-06 [facility] Nursing Noteon 01-06-2023 Nursing Note Discharge instructions given to pt and friend at bedside. All questions answered. All belongings at bedside. VSS. Pt resting comfortably with tolerable pain Normal [facility] Nursing Note Pt ambulated to with standby assist Able to void Normal [facility] Nursing Note Friend to bedside Normal [facility] Nursing Note Patient family/visitor updated by RN at this time. Normal [facility] Op Noteon 01-06-2023 Op Note Date: 01/06/2023 Location: [facility] OR Name: Conner Jones, : 1965, Diagnosis Pre-op Diagnosis * Malignant neoplasm of endometrium (HCC) [C54.1] Morbid obesity Uterine leiomyoma Post-op Diagnosis * Malignant neoplasm of endometrium (HCC) [C54.1] Procedures ROBOTIC ASSISTED TOTAL LAPAROSCOPIC HYSTERECTOMY, BILATERAL SALPINGO OOPHORECTOMY , BILATERAL PELVIC SENTINEL LYMPH NODE BIOPSY WITH ICG PROTOCOL 46080 - [place] LAPS TOTAL HYSTERECT 250 GM/< W/RMVL TUBE/OVARY LYMPHANGIOGRAPHY FOR IDENTIFICATION SENTINEL NODE 99176 - [place] INJ RADIOACTIVE TRACER FOR ID OF SENTINEL NODE Surgeons * Bryan Cervantes - Primary Procedure Summary Anesthesia: General ASA: III Estimated Blood Loss: 10 mL Drains: [REMOVED] Urethral Catheter Non-latex 16 Fr. (Removed) Specimens ID Source Type Tests Collected By Collected At Frozen? Priority Lab ID 1 Uterus Tissue TISSUE EXAM Bryan Cervantes MD 01/06/2377 Routine Description: UTERUS, CERVIX, BILATERAL TUBES AND OVARIES Comment: WEIGHT - 200 g 2 Lymph Node, [place], All sites Tissue TISSUE EXAM Bryan Cervantes MD 01/06/23 0740 No Routine Description: RIGHT PELVIC SENTINEL LYMPH NODE 3 Lymph Node, [place], All sites Tissue TISSUE EXAM Bryan Cervantes MD 01/06/2340 No Routine Description: LEFT PELVIC SENTINEL LYMPH NODE Staff: Tractor Crane Engineer: Amy Elmore RN Scrub Person: Minh Thompson Stretcher Leveler Operator Orienting: Christine Enrique Findings: Uterine leiomyoma grade 1 endometrial cancer, no extrauterine extension Complications: None; patient tolerated the procedure well. Specimens Collected: Order Name Source Comment Collection Info Order Time CBC (HEMOGRAM) Blood, Venous Collected By: Madison Enrique RN 01/06/2023 5:34 AM BLOOD TYPE AND SCREEN GEL Blood, Venous HOLD. Specimen is valid for 3 days - nurse to verify valid specimen Collected By: Madison Enrique RN 01/06/2023 5:34 AM HCG QUALITATIVE URINE Urine, Clean Catch Discontinue this order if: 1. patient is older than 55 years old 2. has had a prior hysterectomy 3. today's surgery is for treatment of known or suspected ectopic or loss. 4. patient has a known intrauterine but this is a needed surgery. 01/06/2023 5:34 AM POTASSIUM WITH MG REFLEX For patients on dialysis to draw potassium day of surgery 01/06/2023 5:34 AM PROTHROMBIN TIME If patient on coumadin within 4 days prior. 01/06/2023 5:34 AM TISSUE EXAM Uterus Pre-op diagnosis: Malignant neoplasm of endometrium (HCC) [C54.1] GRADE 1 PLEASE DO MMR PROTEIN IHS Collected By: Bryan Cervantes MD 01/06/2023 7:38 AM Wound Class: Class II: Clean-Contaminated Blood Products: None Prophylactic Antibiotics: Procedure appropriate prophylactic antibiotic(s) given within 1 hour of surgical incision (two hours if receiving Vancomycin or flouroquinolone) [facility] Op Note Date of surgery 01/06/2023 Preoperative diagnosis endometrial cancer morbid obesity Postop diagnosis endometrial cancer morbid obesity uterine leiomyoma Procedure robotic hysterectomy BSO bilateral identification of sentinel lymph nodes with bilateral pelvic lymph node dissection Surgeon Billy Anesthesia General Operation patient identified brought to the operating room and after ministration of general anesthetic underwent abdominal perineal vaginal prep and draped in the low lithotomy Cixi and using the yellowfin stirrups. Timeout was performed antibiotics were given compression stockings on and running ICG green dye was injected in the cervix manipulator placed in the uterus with a Michelle ring around the cervix and a Jerry catheter in the bladder. Using a knife a small incision was made in the left upper quadrant using the Mobile Armor system the abdominal cavity was entered with a 5 mm blunt port under direct vision insufflated with CO2 and then blunt da More ports were placed under direct vision. Intra-abdominal expiration was normal Trendelenburg was used to displace the bowel about the pelvis and the da More was docked. The round ligaments were coagulated and divided allowing the pararectal and paravesical spaces to be made using firefly technology sentinel lymph nodes were detected on the right left pelvic sidewalls and after identifying the major neurovascular structures of the pelvis the lymph nodes were dissected out using monopolar and bipolar cautery. On the right side there in the obturator region and on the left side at the junction of the internal/external iliac artery and vein. No suspicious adenopathy was noted. The ovarian vessels then skeletonized above the ureters coagulated and divided. The bladder was dissected inferiorly allowing uterine vessels be skeletonized coagulated and divided as were the upper cardinal ligaments down the top of the ring were colpotomy incision was made the uterus was then closed into a large kidney bag the lymph nodes ruled out through the vagina the cuff was closed using a running 0 V-Loc suture and the pelvis was irrigated. The da More was undocked the bag was brought up to the midline incision which was extended using Bovie cautery for the subcutaneous tissue and the fascia. The uterus was removed inside of the bag the defect and the fascia was closed with a running 0 looped PDS followed by interrupted 0 PDS and subtendinous tissue and subcuticular 4-0 Monocryl and Dermabond on all the skin incisions. The Jerry was removed 600 cc of clear urine and she was taken to cover room in stable condition by anesthesia with a minimal EBL Normal [facility] SHS PREPROCINSon 01-03-2023 PREPROCINS Medication List Accurate as of January 03, 2023 9:39 AM. Always use your most recent med list. clotrimazole-betamet hasone cream Commonly known as: Lotrisone Notes to patient: Do not use day of surgery famotidine-calcium carb-mag hydroxide 10-800-165 MG chewable tablet Commonly known as: Pepcid Complete Notes to patient: Do not take day of surgery levothyroxine 112 MCG capsule Commonly known as: Tirosint Medication Adjustments for Surgery: Take morning of surgery multivitamin tablet Notes to patient: Do not take day of surgery Additional Instructions: You may take Tylenol for pain. NO Motrin, ibuprofen or Advil for 24 hours prior to surgery or longer if instructed by your surgeon. NO Aleve or Naprosyn for 5 days prior to surgery or longer if instructed by your surgeon. DO NOT take aspirin or aspirin containing products for 5 days before surgery, or longer if instructed by your surgeon. Follow any instructions given to you by Dr. BILLY Conte with an antibacterial soap such as Dial or Safeguard before coming to the hospital. No makeup, lotion, powder, deodorant or body spays. No hair products. Remove all jewelry and leave it at home. Wear loose comfortable clothing to go home in. You may brush your teeth morning of surgery. Do not wear contacts day of surgery. No marijuana (THC), smoking or alcohol for 24 hours prior to surgery. Please arrange for a responsible adult to drive you home after your surgery and that there is a responsible adult with you for 24 hours post discharge. If you have specific questions, please call your surgeon. You will receive a call the day before your surgery to verify your arrival time and date. You will be asked to arrive at least two hours prior to your scheduled surgery time. Please bring your [facility] Surgical folder and medication list with you day of surgery. We encourage you to write down any questions you may have for the surgeon, anesthesiologist, or other members of the surgical team and bring it with you the day of surgery. Please bring photo ID and insurance information. You may use the [employer] parking located at the main entrance on [address] and take the H elevator to the first floor for same day surgery. Take a left after exiting the elevator and check in at the desk. You may use the parking in the Main deck. Take the level one bridge to the H building and follow the signs for same day surgery. Check in at the desk. Normal [facility] 36on 12-31-2022 36 PAT: by phone 01/03/2023 at 9:30 am SX: 01.06.2023 at 7 am arrival at 5:00 am Post op 01.21.2023 at 10 am Folder and instructions given Normal [facility] Office Visiton 12-31-2022 Follow-up visit [id number] Conner Jones 1965 F Date Provider Department Center 12/31/2022 BRYAN PEDERSON [facility] None Family History Problem Relation Age of Onset Skin cancer Father Heart disease Father Cancer Paternal Grandmother Other Paternal Grandfather Comments: cerebral vascular accident Family Status - Relation Status Age at Father Paternal Grandmother Paternal Grandfather Level of Service:24273 [place] OFFICE/OUTPATIENT [facility] 30-44 MINUTES Reason for Visit and Comments: Endometrial Cancer [562] Normal [facility] Cervical or vagninal specime n microscopic examination by cytology stain (reported asOrdered By: Myah Ayala on 12-21-2022 Cytology report Cyto stain Doc (Cvx/Vag) Comment . [facility] Comment on above: The Pap smear is a s creening test designed to aid in thedetection of premalignant and malignant conditions of theuterine cervix. It is not a diagnostic procedure andshould not be used as the sole means of detecting cervicalcancer. Both false-positive and false-negative reports dooccur. Detection in cervical specim en of any of human papilloma virus (HPV) 16, 18, 31, 33,Ordered By: Myah Ayala on 12-21-2022 HPV 16+18+31+33+35+39+45+51+ 52+56+58+59+66+68 DNA Probe+sig amp Ql (Cvx) Negative Negative [facility] Comment on above: This nucleic acid am plification test detects fourteen high-risk HPV types (16,18,31,33,35,39,45,51,52,56,58,59,66,68)without differentiation. Laboratory - CytologyOrdered By: Myah Ayala on 12-21-2022 Supervisor [employer] Cyto stain Nom (Cvx/Vag) [ID] Comment . [facility] Comment on above: Rhina Scott, Cytot echnologist (ASCP) Laboratory - Miscellaneous t estsOrdered By: Myah Ayala on 12-21-2022 Service comment (Unsp spec) [Interp] Comment . [facility] Comment on above: This liquid based Th inPrep(R) pap test was screened withthe use of an image guided system. Service comment (Unsp spec) [Interp] . . [facility] Liquid-based cerv Pap + CT/G C by XIOMARA w reflex to high-risk HPV for ASCUSOrdered By: Myah Ayala on 12-21-2022 Cytology report Cyto stain.thin prep Doc (Cvx/Vag) Comment . [facility] Comment on above: Criteria not met, HP V Genotype not performed.Performed at: [address] [id number] Director: Suzanne Chavez MD, Phone: [phone] at: [address] [id number] Director: Melissa Ayala MD, Phone: [phone] at: =[address] [id number] Director: Melissa Ayala MD, Phone: [phone] No Panel InformationOrdered By: Myah Ayala on 12-21-2022 Pathology report final diagnosis Narrative Comment . [facility] Comment on above: NEGATIVE FOR INTRAEP ITHELIAL LESION OR MALIGNANCY.THIS SPECIMEN WAS RESCREENED PART OF OUR PROPERTY MAINTENANCE SUPERVISOR PROGRAM. Absolute lymphocyte countOrd ered By: Dr. Cueva on 11-22-2022 Lymphocytes Auto (Unsp spec) [#/Vol] 1.52 10*3/uL 0.83-4.51 [facility] Basophil percentageOrdered B y: Dr. Cueva on 11-22-2022 Basophils/100 WBC (Bld) 0.5 % 0-1 [facility] Bilirubin [Mass/Vol] 0.50 mg/dL 0.20-1.00 [facility] Comment on above: For patients on eltr ombopag therapy, use of Dimension Speculator TBIL is not recommended. Chloride [Moles/Vol] 107 mmol/L 98-107 [facility] Cholesterol [Mass/Vol] 207 mg/dL <200 [facility] Comment on above: <200 mg/dL Desirable 200-240 mg/dL Borderline >240 mg/dL High Risk Eosinophils/100 WBC (Bld) 1.1 % 0-5 [facility] Glucose [Mass/Vol] 120 mg/dL 74-106 [facility] Comment on above: Fasting Glucose resu lt from 100 to 125 mg/dL suggests IMPAIRED HOMEOSTASIS per A.D.A. criteria. Neutrophils (Bld) [#/Vol] 3.5 10*3/uL 2.0-7.7 [facility] Neutrophils/100 WBC (Bld) 63.2 % 47-70 [facility] Potassium [Moles/Vol] 4.0 mmol/L 3.5-5.1 [facility] Protein [Mass/Vol] 7.3 g/dL 6.4-8.2 [facility] Sodium [Moles/Vol] 137 mmol/L 136-145 [facility] Triglyceride [Mass/Vol] 175 mg/dL <199 [facility] Comment on above: The drugs N-Acetylcy steine and Metamizole may falsely depress this assay.Serum Triglycerides Reference Interval Normal <150 mg/dL Borderline high 150 - 199 mg/dL High 200 - 499 mg/dL Very High > or = 500 mg/dL WBC (Bld) [#/Vol] 5.5 10*3/uL 4.4-11.0 [facility] Blood erythrocytes count (nu mber/volume)Ordered By: Dr. Cueva on 11-22-2022 RBC (Bld) [#/Vol] 5.05 10*6/uL 4.2-5.4 [facility] Blood hemoglobin measurement (mass/volume)Ordered By: Dr. Cueva on 11-22-2022 Hemoglobin (Bld) [Mass/Vol] 15.0 g/dL 12.0-15.0 [facility] Blood lymphocytes/100 leukoc ytesOrdered By: Dr. Cueva on 11-22-2022 Lymphocytes/100 WBC (Bld) 27.7 % 19-41 [facility] Blood monocytes/100 leukocyt esOrdered By: Dr. Cueva on 11-22-2022 Monocytes/100 WBC (Bld) 7.1 % 0-10 [facility] Blood platelet mean volumeOr dered By: Dr. Cueva on 11-22-2022 Platelet mean volume (Bld) [Entitic vol] 10.7 fL 6.2-12.0 [facility] Determination of erythrocyte mean corpuscular volume (MCV)Ordered By: Dr. Cueva on 11-22-2022 MCV (RBC) [Entitic vol] 91.1 fL 81-99 [facility] Hematocrit Auto (Bld) [Volum e fraction]Ordered By: Dr. Cueva on 11-22-2022 Hematocrit (Bld) [Volume fraction] 46.0 % 37-47 [facility] Laboratory - Chemistry and C hemistry - challengeOrdered By: Dr. Cueva on 11-22-2022 ALP [Catalytic activity/Vol] 73 U/L 45-117 [facility] ALT [Catalytic activity/Vol] 30 U/L 13-56 [facility] CO2 [Moles/Vol] 24.0 mmol/L 21.0-32.0 [facility] Globulin (S) [Mass/Vol] 3.5 g/dL 2.2-4.2 [facility] Urea nitrogen/Creatinine [Mass ratio] 12.1 mg/mg 10-20 [facility] Laboratory - Hematology and Cell countsOrdered By: Dr. Cueva on 11-22-2022 Erythrocyte distribution width (RBC) [Entitic vol] 39.0 fL 35.1-43.9 [facility] Erythrocyte distribution width (RBC) [Ratio] 11.7 % 11.6-14.6 [facility] Immature granulocytes/100 WBC (Bld) 0.400 % 0.0-0.9 [facility] Comment on above: IG% - Immature Granu locytes (promyelocytes, myelocytes and metamyelocytes) > 1% indicates that a LEFT SHIFT is Present. MCH (RBC) [Entitic mass] 29.7 pg 27.0-32.0 [facility] Nucleated RBC/100 WBC (Bld) [Ratio] 0 % 0[facility] [Mass/Vol]Or dered By: Dr. Cueva on 11-22-2022 MCHC (RBC) [Mass/Vol] 32.6 g/dL 32-36 [facility] No Panel InformationOrdered By: Dr. Cueva on 11-22-2022 Estimated GFR (MDRD) Amer 104 mL/min >60 [facility] Comment on above: GFR Calc Estimated GFR (MDRD) Non-Af Amer 86 mL/min >60 [facility] Comment on above: Non- GFR Calc Thyroid Stimulating Hormone (TSH) 2.28 uIU/mL 0.358-3.74 [facility] Platelets bldOrdered By: Dr. Cueva on 11-22-2022 Platelets (Bld) [#/Vol] 219 10*3/uL 150-450 [facility] Serum or plasma albumin lorie urement (mass/volume)Ordered By: Dr. Cueva on 11-22-2022 Albumin [Mass/Vol] 3.8 g/dL 3.2-5.0 [facility] Serum or plasma albumin/glob ulin mass ratioOrdered By: Dr. Cueva on 11-22-2022 Albumin/Globulin [Mass ratio] 1.1 {ratio} 0.9-2.4 [facility] Serum or plasma calcium lorie urement (mass/volume)Ordered By: Dr. Cueva on 11-22-2022 Calcium [Mass/Vol] 9.2 mg/dL 8.5-10.1 [facility] Serum or plasma cholesterol in HDL measurement (mass/volume)Ordered By: Dr. Cueva on 11-22-2022 Cholesterol in HDL [Mass/Vol] 35 mg/dL >40 [facility] Comment on above: The drugs N-Acetylcy steine and Metamizole may falsely depress this assay. Reference Range HDL <40 mg/dL Low HDL Cholesterol HDL >or= 60 mg/dL High HDL Cholesterol Serum or plasma cholesterol in VLDL measurement (mass/volume)Ordered By: Dr. Cueva on 11-22-2022 Cholesterol in VLDL [Mass/Vol] 35 mg/dL 5-40 [facility] Serum or plasma creatinine m easurement (mass/volume)Ordered By: Dr. Cueva on 11-22-2022 Creatinine [Mass/Vol] 0.74 mg/dL 0.55-1.02 [facility] Comment on above: The validity of the calculated GFR & GFRAA in patients over 70 years has not been determined. Clinical correlation is essential. Serum or plasma low density lipoprotein (LDL) cholesterol measurement (mass/volume)Ordered By: Dr. Cueva on 11-22-2022 Cholesterol in LDL [Mass/Vol] 137 mg/dL 0-130 [facility] Serum or plasma urea nitroge n measurement (mass/volume)Ordered By: Dr. Cueva on 11-22-2022 Urea nitrogen [Mass/Vol] 9 mg/dL 7-18 [facility] Thin prep Papanicolaou smear with manual screeningOrdered By: Dr. Cueva on 11-22-2022 Thin prep Papanicolaou smear with manual screening 14 U/L 15-37 [facility] Thin prep Papanicolaou smear with manual screening 6 5-15 [facility] Absolute lymphocyte counton 10-07-2021 Lymphocytes Auto (Unsp spec) [#/Vol] 1.34 10*3/uL 0.83-4.51 [facility] Work Phone: Basophil percentageon 2021 Basophils/100 WBC (Bld) 0.4 % 0-1 [facility] Work Phone: Bilirubin [Mass/Vol] 0.50 mg/dL 0.20-1.00 [facility] Work Phone: Comment on above: For patients on eltr ombopag therapy, use of Dimension Speculator TBIL is not recommended. Chloride [Moles/Vol] 106 mmol/L 98-107 [facility] Work Phone: Cholesterol [Mass/Vol] 200 mg/dL <200 [facility] Work Phone: Comment on above: <200 mg/dL Desirable 200-240 mg/dL Borderline >240 mg/dL High Risk Eosinophils/100 WBC (Bld) 1.7 % 0-5 [facility] Work Phone: Glucose [Mass/Vol] 115 mg/dL 74-106 [facility] Work Phone: Comment on above: Fasting Glucose resu lt from 100 to 125 mg/dL suggests IMPAIRED HOMEOSTASIS per A.D.A. criteria. Neutrophils (Bld) [#/Vol] 2.9 10*3/uL 2.0-7.7 [facility] Work Phone: Neutrophils/100 WBC (Bld) 62.6 % 47-70 [facility] Work Phone: Potassium [Moles/Vol] 3.9 mmol/L 3.5-5.1 [facility] Work Phone: Protein [Mass/Vol] 7.3 g/dL 6.4-8.2 [facility] Work Phone: Sodium [Moles/Vol] 137 mmol/L 136-145 [facility] Work Phone: Triglyceride [Mass/Vol] 194 mg/dL <199 [facility] Work Phone: Comment on above: The drugs N-Acetylcy steine and Metamizole may falsely depress this assay.Serum Triglycerides Reference Interval Normal <150 mg/dL Borderline high 150 - 199 mg/dL High 200 - 499 mg/dL Very High > or = 500 mg/dL WBC (Bld) [#/Vol] 4.7 10*3/uL 4.4-11.0 [facility] Work Phone: Blood erythrocytes count (nu mber/volume)on 10-07-2021 RBC (Bld) [#/Vol] 4.93 10*6/uL 4.2-5.4 [facility] Work Phone: Blood hemoglobin measurement (mass/volume)on 10-07-2021 Hemoglobin (Bld) [Mass/Vol] 14.5 g/dL 12.0-15.0 [facility] Work Phone: Blood lymphocytes/100 leukoc yteson 10-07-2021 Lymphocytes/100 WBC (Bld) 28.5 % 19-41 [facility] Work Phone: Blood monocytes/100 leukocyt eson 10-07-2021 Monocytes/100 WBC (Bld) 6.4 % 0-10 [facility] Work Phone: Blood platelet mean volumeon 10-07-2021 Platelet mean volume (Bld) [Entitic vol] 10.7 fL 6.2-12.0 [facility] Work Phone: Determination of erythrocyte mean corpuscular volume (MCV)on 10-07-2021 MCV (RBC) [Entitic vol] 88.8 fL 81-99 [facility] Work Phone: Hematocrit Auto (Bld) [Volum e fraction]on 10-07-2021 Hematocrit (Bld) [Volume fraction] 43.8 % 37-47 [facility] Work Phone: Laboratory - Chemistry and C hemistry - challengeon 10-07-2021 ALP [Catalytic activity/Vol] 73 U/L 45-117 [facility] Work Phone: ALT [Catalytic activity/Vol] 30 U/L 13-56 [facility] Work Phone: CO2 [Moles/Vol] 25.0 mmol/L 21.0-32.0 [facility] Work Phone: Globulin (S) [Mass/Vol] 3.5 g/dL 2.2-4.2 [facility] Work Phone: Urea nitrogen/Creatinine [Mass ratio] 17.3 mg/mg 10-20 [facility] Work Phone: Laboratory - Hematology and Cell countson 10-07-2021 Erythrocyte distribution width (RBC) [Entitic vol] 39.3 fL 35.1-43.9 [facility] Work Phone: Erythrocyte distribution width (RBC) [Ratio] 12.0 % 11.6-14.6 [facility] Work Phone: Immature granulocytes/100 WBC (Bld) 0.400 % 0.0-0.9 [facility] Work Phone: Comment on above: IG% - Immature Granu locytes (promyelocytes, myelocytes and metamyelocytes) > 1% indicates that a LEFT SHIFT is Present. MCH (RBC) [Entitic mass] 29.4 pg 27.0-32.0 [facility] Work Phone: Nucleated RBC/100 WBC (Bld) [Ratio] 0 % 0-5 [facility] Work Phone: MCHC Auto (RBC) [Mass/Vol]on 10-07-2021 MCHC (RBC) [Mass/Vol] 33.1 g/dL 32-36 [facility] Work Phone: No Panel Informationon 10-07 Estimated GFR (MDRD) Amer 124 mL/min >60 [facility] Work Phone: Comment on above: GFR Calc Estimated GFR (MDRD) Non-Af Amer 103 mL/min >60 [facility] Work Phone: Comment on above: Non- GFR Calc Thyroid Stimulating Hormone (TSH) 5.35 uIU/mL 0.358-3.74 [facility] Work Phone: Platelets bldon 10-07-2021 Platelets (Bld) [#/Vol] 191 10*3/uL 150-450 [facility] Work Phone: Serum or plasma albumin lorie urement (mass/volume)on 10-07-2021 Albumin [Mass/Vol] 3.8 g/dL 3.2-5.0 [facility] Work Phone: Serum or plasma albumin/glob ulin mass ratioon 10-07-2021 Albumin/Globulin [Mass ratio] 1.1 {ratio} 0.9-2.4 [facility] Work Phone: Serum or plasma calcium lorie urement (mass/volume)on 10-07-2021 Calcium [Mass/Vol] 8.5 mg/dL 8.5-10.1 [facility] Work Phone: Serum or plasma cholesterol in HDL measurement (mass/volume)on 10-07-2021 Cholesterol in HDL [Mass/Vol] 32 mg/dL >40 [facility] Work Phone: Comment on above: The drugs N-Acetylcy steine and Metamizole may falsely depress this assay. Reference Range HDL <40 mg/dL Low HDL Cholesterol HDL >or= 60 mg/dL High HDL Cholesterol Serum or plasma cholesterol in VLDL measurement (mass/volume)on 10-07-2021 Cholesterol in VLDL [Mass/Vol] 39 mg/dL 5-40 [facility] Work Phone: Serum or plasma creatinine m easurement (mass/volume)on 10-07-2021 Creatinine [Mass/Vol] 0.64 mg/dL 0.55-1.02 [facility] Work Phone: Comment on above: The validity of the calculated GFR & GFRAA in patients over 70 years has not been determined. Clinical correlation is essential. Serum or plasma low density lipoprotein (LDL) cholesterol measurement (mass/volume)on 10-07-2021 Cholesterol in LDL [Mass/Vol] 129 mg/dL 0-130 [facility] Work Phone: Serum or plasma urea nitroge n measurement (mass/volume)on 10-07-2021 Urea nitrogen [Mass/Vol] 11 mg/dL 7-18 [facility] Work Phone: Thin prep Papanicolaou smear with manual screeningon 10-07-2021 Thin prep Papanicolaou smear with manual screening 14 U/L 15-37 [facility] Work Phone: Thin prep Papanicolaou smear with manual screening 6 5-15 [facility] Work Phone: Vital Signs Date Time Vital Sign Value Performing Clinician Faci lity 12-10-2024 09:27-0400 Body height 177.[address] Usha Cueva MD Work Phone: [facility] 12-10-2024 09:23-0400 Body mass index (BMI) [Ratio] 43.1 kg/m2 Dr. Usha Cueva MD Work Phone: [facility] 12-10-2024 09:23-0400 Body weight 136.[address] Usha Cueva MD Work Phone: [facility] 12-10-2024 09:23-0400 Diastolic blood pressure 78 mm[Hg] Dr. Usha Cueva MD Work Phone: [facility] 12-10-2024 09:23-0400 Systolic blood pressure 128 mm[Hg] Dr. Usha Cueva MD Work Phone: [facility] 11-21-2024 10:21-0400 Body height 177.[address] Usha Cueva MD Work Phone: [facility] 11-21-2024 10:21-0400 Body mass index (BMI) [Ratio] 43.3 kg/m2 Dr. Usha Cueva MD Work Phone: [facility] 11-21-2024 10:21-0400 Body temperature 97 [degF] Dr. Usha Cueva MD Work Phone: [facility] 11-21-2024 10:21-0400 Body weight 136.[address] Usha Cueva MD Work Phone: [facility] 11-21-2024 10:21-0400 Diastolic blood pressure 60 mm[Hg] Dr. Usha Cueva MD Work Phone: [facility] 11-21-2024 10:21-0400 Heart rate 74 /min Dr. Usha Cueva MD Work Phone: [facility] 11-21-2024 10:21-0400 Respiratory rate 18 /min Dr. Usha Cueva MD Work Phone: [facility] 11-21-2024 10:21-0400 SaO2% (BldA) [Mass fraction] 97 % Dr. Usha Cueva MD Work Phone: [facility] 11-21-2024 10:21-0400 Systolic blood pressure 114 mm[Hg] Dr. Usha Cueva MD Work Phone: [facility] 01-21-2023 09:40-0400 Body height 177.8 cm Bryan Cervantes MD Work Phone: [facility] 01-21-2023 09:40-0400 Body mass index (BMI) [Ratio] 40.75 kg/m2 Bryan Cervantes MD Work Phone: [facility] 01-21-2023 09:40-0400 Body weight 128.82 kg Bryan Cervantes MD Work Phone: [facility] 01-21-2023 09:40-0400 Diastolic blood pressure 81 mm[Hg] Bryan Cervantes MD Work Phone: [facility] 01-21-2023 09:40-0400 Heart rate 85 /min Bryan Cervantes MD Work Phone: [facility] 01-21-2023 09:40-0400 Systolic blood pressure 135 mm[Hg] Bryan Cervantes MD Work Phone: [facility] 01-06-2023 10:15-0400 SaO2% (BldA) [Mass fraction] 99 % Bryan Cervantes MD Work Phone: [facility] 01-06-2023 10:00-0400 Diastolic blood pressure 62 mm[Hg] Bryan Cervantes MD Work Phone: [facility] 01-06-2023 10:00-0400 Heart rate 78 /min Bryan Cervantes MD Work Phone: [facility] 01-06-2023 10:00-0400 Respiratory rate 22 /min Bryan Cervantes MD Work Phone: [facility] 01-06-2023 10:00-0400 Systolic blood pressure 102 mm[Hg] Bryan Cervantes MD Work Phone: [facility] 01-06-2023 08:16-0400 Body temperature 97 [degF] Bryan Cervantes MD Work Phone: [facility] 01-06-2023 05:38-0400 Body height 177.8 cm Bryan Cervantes MD Work Phone: [facility] 01-06-2023 05:38-0400 Body mass index (BMI) [Ratio] 41.18 kg/m2 Bryan Cervantes MD Work Phone: [facility] 01-06-2023 05:38-0400 Body weight 130.18 kg Bryan Cervantes MD Work Phone: [facility] 12-21-2022 08:27-0400 Body height 177.[address] Usha Cueva Work Phone: [facility] 12-21-2022 08:22-0400 Body mass index (BMI) [Ratio] 41 kg/m2 Dr. Usha Cueva Work Phone: [facility] 12-21-2022 08:22-0400 Body weight 129.[address] Usha Cueva Work Phone: [facility] 12-21-2022 08:22-0400 Diastolic blood pressure 84 mm[Hg] Dr. Usha Cueva Work Phone: [facility] 12-21-2022 08:22-0400 Systolic blood pressure 130 mm[Hg] Dr. Usha Cueva Work Phone: [facility] 11-22-2022 10:55-0400 Body height 177.[address] Usha Cueva Work Phone: [facility] 11-22-2022 10:55-0400 Body mass index (BMI) [Ratio] 40.4 kg/m2 Dr. Usha Cueva Work Phone: [facility] 11-22-2022 10:55-0400 Body temperature 97.3 [degF] Dr. Usha Cueva Work Phone: [facility] 11-22-2022 10:55-0400 Body weight 127.[address] Usha Cueva Work Phone: [facility] 11-22-2022 10:55-0400 Diastolic blood pressure 82 mm[Hg] Dr. Usha Cueva Work Phone: [facility] 11-22-2022 10:55-0400 Heart rate 87 /min Dr. Usha Cueva Work Phone: [facility] 11-22-2022 10:55-0400 Respiratory rate 18 /min Dr. Usha Cueva Work Phone: [facility] 11-22-2022 10:55-0400 SaO2% (BldA) [Mass fraction] 95 % Dr. Usha Cueva Work Phone: [facility] 11-22-2022 10:55-0400 Systolic blood pressure 124 mm[Hg] Dr. Usha Cueva Work Phone: [facility] 04-13-2022 08:14-0400 Diastolic blood pressure 75 mm[Hg] Dr. Usha Cueva Work Phone: [facility] Work Phone: 04-13-2022 08:14-0400 Heart rate 66 /min Dr. Usha Cueva Work Phone: [facility] Work Phone: 04-13-2022 08:14-0400 Respiratory rate 18 /min Dr. Usha Cueva Work Phone: [facility] Work Phone: 04-13-2022 08:14-0400 SaO2% (BldA) [Mass fraction] 94 % Dr. Usha Cueva Work Phone: [facility] Work Phone: 04-13-2022 08:14-0400 Systolic blood pressure 110 mm[Hg] Dr. Usha Cueva Work Phone: [facility] Work Phone: 04-13-2022 07:57-0400 Body temperature 97.6 [degF] Dr. Usha Cueva Work Phone: [facility] Work Phone: 04-13-2022 06:16-0400 Body height 177.[address] Usha Cueva Work Phone: [facility] Work Phone: 04-13-2022 06:16-0400 Body mass index (BMI) [Ratio] 40.8 kg/m2 Dr. Usha Cueva Work Phone: [facility] Work Phone: 04-13-2022 06:16-0400 Body weight 128.[address] Usha Cueva Work Phone: [facility] Work Phone: 02-02-2022 10:47-0400 Body temperature 97 [degF] Dr. Usha Cueva Work Phone: [facility] Work Phone: 02-02-2022 10:47-0400 Diastolic blood pressure 67 mm[Hg] Dr. Usha Cueva Work Phone: [facility] Work Phone: 02-02-2022 10:47-0400 Heart rate 78 /min Dr. Usha Cueva Work Phone: [facility] Work Phone: 02-02-2022 10:47-0400 Respiratory rate 18 /min Dr. Usha Cueva Work Phone: [facility] Work Phone: 02-02-2022 10:47-0400 Systolic blood pressure 123 mm[Hg] Dr. Usha Cueva Work Phone: [facility] Work Phone: 02-02-2022 10:00-0400 SaO2% (BldA) [Mass fraction] 93 % Dr. Usha Cueva Work Phone: [facility] Work Phone: 02-02-2022 07:57-0400 Body height 177.[address] Usha Cueva Work Phone: [facility] Work Phone: 02-02-2022 07:57-0400 Body mass index (BMI) [Ratio] 40.1 kg/m2 Dr. Usha Cueva Work Phone: [facility] Work Phone: 02-02-2022 07:57-0400 Body weight [address] Usha Cueva Work Phone: [facility] Work Phone: 10-07-2021 09:58-0400 Body height 177.[address] Usha Cueva Work Phone: [facility] Work Phone: 10-07-2021 09:58-0400 Body mass index (BMI) [Ratio] 40.5 kg/m2 Dr. Usha Cueva Work Phone: [facility] Work Phone: 10-07-2021 09:58-0400 Body temperature 96.8 [degF] Dr. Usha Cueva Work Phone: [facility] Work Phone: 10-07-2021 09:58-0400 Body weight 128.[address] Usha Cueva Work Phone: [facility] Work Phone: 10-07-2021 09:58-0400 Diastolic blood pressure 74 mm[Hg] Dr. Usha Cueva Work Phone: [facility] Work Phone: 10-07-2021 09:58-0400 Heart rate 66 /min Dr. Usha Cueva Work Phone: [facility] Work Phone: 10-07-2021 09:58-0400 Respiratory rate 16 /min Dr. Usha Cueva Work Phone: [facility] Work Phone: 10-07-2021 09:58-0400 SaO2% (BldA) [Mass fraction] 97 % Dr. Usha Cueav Work Phone: [facility] Work Phone: 10-07-2021 09:58-0400 Systolic blood pressure 122 mm[Hg] Dr. Usha Cueva Work Phone: [facility] Work Phone: 10-07-2021 09:58-0400 Body height 177.[address] Usha Cueva Work Phone: [facility] Work Phone: 10-07-2021 09:58-0400 Body mass index (BMI) [Ratio] 40.5 kg/m2 Dr. Usha Cueva Work Phone: [facility] Work Phone: 10-07-2021 09:58-0400 Body temperature 96.8 [degF] Dr. Usha Cueva Work Phone: [facility] Work Phone: 10-07-2021 09:58-0400 Body weight 128.[address] Usha Cueva Work Phone: [facility] Work Phone: 10-07-2021 09:58-0400 Diastolic blood pressure 74 mm[Hg] Dr. Usha Cueva Work Phone: [facility] Work Phone: 10-07-2021 09:58-0400 Heart rate 66 /min Dr. Usha Cueva Work Phone: [facility] Work Phone: 10-07-2021 09:58-0400 Respiratory rate 16 /min Dr. Usha Cueva Work Phone: [facility] Work Phone: 10-07-2021 09:58-0400 SaO2% (BldA) [Mass fraction] 97 % Dr. Usha Cueva Work Phone: [facility] Work Phone: 10-07-2021 09:58-0400 Systolic blood pressure 122 mm[Hg] Dr. Usha Cueva Work Phone: [facility] Work Phone: Encounters Encounter Date Encounter Type Care Provider Facility Start: 01-07-2025 ambulatory Usha Mon ty:[facility] Start: 12-10-2024 End: 12-10-2024 Patient encounter procedure Myah STARKS -[facility] Work Phone: Start: 12-10-2024 End: 12-10-[address] Usha Cueva MD Work Phone: -[facility] Start: 11-22-2024 End: 11-22-[address] Usha Cueva MD Work Phone: [facility] Work Phone: Start: 11-22-2024 End: 11-22-[address] Usha Cueva MD -[facility] Start: 11-21-2024 Encounter for genera l adult medical examination without abnormal findings rey Cueva [facility] Start: 11-21-2024 End: 11-21-[address] Usha Cueva MD -[facility] Work Phone: Start: 11-21-2024 End: 11-21-[address] Usha Cueva MD [facility] Start: 11-21-2024 End: 11-22-[address] Usha Cueva MD Work Phone: [facility] Work Phone: Start: 06-20-2024 End: 06-20-2024 ambulatory Myah Ayala Facility:[facility] Start: 01-21-2023 End: 01-21-2023 [facility] Start: 01-21-2023 End: 01-21-2023 Postop follow up visit related to original px Bryan Cervantes MD Work Phone: [facility] Comment on above: Post-operative state (Primary Dx) Start: 01-07-2023 Telephone encounter Bryan Cervantes MD Work Phone: [facility] Start: 01-06-2023 End: 01-06-2023 ambulatory [facility] Start: 01-06-2023 End: 01-06-2023 Subsequent hospital visit by physician Bryan Cervantes MD Work Phone: [facility] Comment on above: Endometrial cancer ( CMS/HCC) (HCC) (Primary Dx); Malignant neoplasm of endometrium (HCC); Postoperative pain Start: 01-03-2023 End: 01-03-2023 ambulatory [facility] Start: 12-31-2022 End: 12-31-2022 ambulatory MYAH AYALA [facility] Start: 12-21-2022 End: 12-21-[address] Usha Cueva Work Phone: [facility] Work Phone: Start: 12-21-2022 End: 12-21-[address] Usha Cueva Work Phone: [facility]-Laboratory, Specimen Work Phone: Start: 12-21-2022 End: 12-21-[address] Usha Cueva Work Phone: [facility] Work Phone: Start: 11-22-2022 End: 11-22-[address] Usha Cueva Work Phone: [facility] Work Phone: Start: 11-22-2022 End: 11-22-2022 Encounter for general adult medical examination without abnormal findings Dr. Usha Cueva Work Phone: [facility] Start: 11-22-2022 End: 11-22-[address] Usha Cueva Work Phone: [facility] Start: 04-13-2022 Non-patient / Non-visit Dr. Trinity Cueva Work Phone: [facility] Start: 04-13-2022 End: 04-13-2022 Admission to same day surgery center Dr. Usha Cueva Work Phone: [facility] Start: 04-13-2022 End: 04-13-[address] Usha Cueva Work Phone: [facility] Work Phone: Start: 02-17-2022 End: 02-17-[address] Usha Cueva Work Phone: [facility] Start: 02-02-2022 Non-patient / Non-visit Dr. Trinity Cueva Work Phone: [facility] Start: 02-02-2022 End: 02-02-2022 Admission to same day surgery center Dr. Usha Cueva Work Phone: [facility] Start: 01-25-2022 End: 01-25-[address] Usha Cueva Work Phone: [facility] Start: 11-27-2021 Non-patient / Non-visit Dr. Trinity Cueva Work Phone: [facility] Start: 11-27-2021 End: 11-27-[address] Usha Cueva Work Phone: [facility]Pulmonary Services/Neurology Start: 10-30-2021 End: 10-30-[address] Usha Cueva Work Phone: [facility]-Outpatient Breast [facility] Start: 10-07-[address] Usha Cueva Work Phone: [facility] Start: 10-07-2021 End: 10-07-2021 Encounter for general adult medical examination without abnormal findings Dr. Usha Cueva Work Phone: [facility] Start: 10-07-2021 End: 10-07-[address] Usha Cueva Work Phone: [facility] Procedures Date Procedure Procedure Detail Performing Clinician Start: 01-06-2023 ABO and Rh group [Ty pe] in Blood by Confirmatory method Bryan Cervantes MD Work Phone: Start: 01-06-2023 Blood count complete automated Bryan Cervantes MD Work Phone: Start: 01-06-2023 Blood typing serologic abo Bryan Cervantes MD Work Phone: Start: 04-13-2022 Decompression of med gricel nerve Dr. Usha Cueva Work Phone: Start: 02-02-2022 Decompression of med gricel nerve Dr. Usha Cueva Work Phone: Start: 10-30-2021 Mammography Bryan luciano MD Work Phone: Start: 10-30-2021 Screening mammography Christin r. Usha Cueva Work Phone: Plan of Treatment Date Care Activity Detail Author Start: 11-22-2024 Patient referral [facility] Work Phone: Start: 11-22-2024 CBC W Auto Different ial panel - Blood [facility] Start: 11-22-2024 Comprehensive metabo lic 2000 panel - Serum or Plasma [facility] Start: 11-22-2024 Lipid 1996 panel - S fermin or Plasma [facility] Start: 11-21-2024 Patient referral [facility] Work Phone: Start: 02-11-2023 Influenza vaccination Influenz a Vaccine (#1) [facility] Start: 01-21-2023 End: 01-21-2023 Patient encounter procedure 01/21/2023 10:00 AM EDT Office Visit [facility] [address] [place] [address] [address] [place] [address] Bryan Cervantes MD [address] [place] [address] [facility] Start: 11-22-2022 Patient referral [facility] Work Phone: Start: 10-30-2022 Screening for malign ant neoplasm of breast Mammogram [facility] Start: 04-13-2022 Application of ice c ollar, cap or bag [facility] Work Phone: Start: 04-13-2022 Elevation of affecte d extremity [facility] Work Phone: Start: 04-13-2022 Patient discharge [facility] Work Phone: Start: 04-13-2022 Catheterization of vein [facility] Work Phone: Start: 04-13-2022 Following clinical p athway protocol [facility] Work Phone: Start: 04-13-2022 Procedure discontinued [facility] Work Phone: Start: 04-13-2022 Taking patient vital signs [facility] Work Phone: Start: 04-13-2022 Vital signs measurements [facility] Work Phone: Start: 04-13-2022 [facility] Work Phone: Start: 04-13-2022 Medication education [facility] Work Phone: Start: 02-02-2022 Anes nerve muscle td n fascia&bursa forearm wrist ANESTH LOWER ARM SURGERY [facility] Work Phone: Start: 02-02-2022 Neuroplasty &/transp os median nrv carpal tunne CARPAL TUNNEL SURGERY [facility] Work Phone: Start: 02-02-2022 Application of ice c ollar, cap or bag [facility] Work Phone: Start: 02-02-2022 Catheterization of vein [facility] Work Phone: Start: 02-02-2022 Elevation of affecte d extremity [facility] Work Phone: Start: 02-02-2022 Following clinical p athway protocol [facility] Work Phone: Start: 02-02-2022 Patient discharge [facility] Work Phone: Start: 02-02-2022 Procedure discontinued [facility] Work Phone: Start: 02-02-2022 Taking patient vital signs [facility] Work Phone: Start: 08-23-2022 Vital signs measurements [facility] Work Phone: Start: 02-02-2022 [facility] Work Phone: Start: 02-02-2022 Medication education [facility] Work Phone: Start: 12-21-2015 Screening for malign ant neoplasm of lung Lung Cancer Screening [facility] Start: 12-21-2015 Zoster Vaccines (1 of 2) Zoste r Vaccines (1 of 2) [facility] Start: 1984 DTaP/Tdap/Td Vaccine s (1 - Tdap) DTaP/Tdap/Td Vaccines (1 - Tdap) [facility] Start: 12-21-1983 Diabetes mellitus screening Diabetes Screening [facility] Start: 12-21-1983 Hepatitis C screening Hepatitis C Sc reening [facility] Start: 1977 Depression Screening Depression Scre ening [facility] Start: 1966 MMR Vaccines (1 of 1 - Standard series) MMR Vaccines (1 of 1 - Standard series) [facility] Start: 06-22-1966 COVID-19 Vaccine (#1) COVID-19 Vacci ne (#1) [facility] Start: 1965 Hepatitis B Vaccines (1 of 3 - 3-dose series) Hepatitis B Vaccines (1 of 3 - 3-dose series) [facility] Start: 1965 HIV screening HIV Screening [facility] Start: 1965 Lipid panel Lipid Panel [facility] Start: 1965 Screening for malign ant neoplasm of colon [facility] Start: 1965 Thyroid stimulating hormone measurement TSH Level [facility] Alanine aminotransfe rase [Enzymatic activity/volume] in Serum or Plasma [facility] Albumin [Mass/volume ] in Serum or Plasma [facility] Alkaline phosphatase [Enzymatic activity/volume] in Serum or Plasma [facility] Anion gap in Serum o r Plasma [facility] Bilirubin, total measurement [facility] BUN/Creatinine ratio [facility] Calcium [Mass/volume ] in Serum or Plasma [facility] Carbon dioxide, tota l [Moles/volume] in Central venous blood [facility] CBC W Auto Different ial panel - Blood [facility] Cholesterol [Mass/vo lume] in Serum or Plasma [facility] Cholesterol in HDL [Mass/volume] in Serum or Plasma [facility] Comprehensive metabo lic 1999 panel - Serum or Plasma [facility] Creatinine [Mass/vol ume] in Serum or Plasma [facility] Erythrocyte mean corpuscular volume determination [facility] Glucose [Mass/volume ] in Serum or Plasma [facility] Hematocrit [Volume Fraction] of Blood [facility] Hemoglobin [Mass/vol ume] in Blood [facility] Leukocytes [#/volume ] in Blood [facility] Lipid 1996 panel - S fermin or Plasma [facility] Low density lipoprot ein cholesterol measurement [facility] Mean corpuscular hemoglobin concentration determination [facility] Mean corpuscular hemoglobin determination [facility] Measurement of renal function [facility] MG Breast - bilatera l Screening [facility] Neutrophil count [facility] Neutrophil percent differential count [facility] Patient referral [facility] Work Phone: Platelets [#/volume] in Blood [facility] Potassium measurement [facility] Red blood cell count [facility] Red cell distributio n width determination [facility] Serum chloride measurement [facility] Sodium measurement [facility] Thyroid stimulating hormone measurement [facility] Thyroid stimulating hormone measurement [facility] Tissue exam [facility] Work Phone: Comment on above: Release Upon Yiselin g for 1 Occurrences starting 01/06/2023, 1 completed Total cholesterol:HD L ratio measurement [facility] Total protein measurement [facility] Triglycerides measurement [facility] Urea nitrogen [Mass/volume] in Serum or Plasma [facility] US Pelvis [facility] US Pelvis transvaginal [facility] VLDL cholesterol measurement [facility] Payers Date Payer Category Payer Self-pay [id number] 2021 Unknown [id number] 2021 Unknown [employer] [id number] 2021-Present [address] [place] [address] Commercial [id number] Unknown [id number] Unknown [id number] 2 Unknown [id number] 2 Unknown [id number] 2 Unknown [id number] 2 Unknown [id number] 2 Social History Date Type Detail Facility Start: 10-07-2021 End: 12-21-2022 Tobacco smoking status [facility] Unknown if ever smoked [facility] Start: 05-23-2018 Occasional [facility] Start: 05-23-2018 None [facility] Start: 05-23-2018 Cigarettes [facility] [place] Start: 1965 Sex Assigned At Female [facility] Start: 01-03-2023 End: 11-23-2023 Tobacco smoking status [facility] Ex-smoker [facility] End: 06-13-2009 History of tobacco use Current smoker [facility]: 06-13-2009 History of tobacco use Cigarette Smoker [facility] Start: 01-03-2023 End: 01-21-2023 Cigarettes smoked current (pack per day) - Reported 1 [facility] Start: 01-03-2023 Tobacco use and exposure Smokeless tobacco non-user [facility] Start: 01-06-2023 End: 01-21-2023 Alcohol intake Current drinker of alcohol (finding) [facility] Start: 01-06-2023 End: 01-21-2023 Tobacco use panel [facility] Start: 01-03-2023 Alcohol Comment 2-3x/week [facility] Start: 07-10-1966 Sex Assigned At Not on file [facility] Start: 12-27-2022 End: 01-21-2023 Exposure to SARS-CoV-2 (event) Not sure [facility] Goals Date Patient Goal Desired Activity /State Mental Status Date Assessment Result Facility 04-13-2022 Cognitive function Level Of Cons ciousness Awake;Drowsy [facility] Work Phone: 04-13-2022 Cognitive function Patient Sathish streeter Person;Place;Time [facility] Work Phone: 02-02-2022 Cognitive function Voice/Name [facility] Work Phone: Clinical Notes 12-21-2022 to 11-21-2024 Note Date & Type Note Facility 11-21-2024 Evaluation note Diagnosis Onset Date Resolution Health care maintenance acute [facility] 2024 10:10am Hyperlipidemia chronic November 21, 2024 10:10am Hypothyroid chronic November 21 10:10am Morbid obesity chronic November 21, 2024 10:10am Recurrent upper respiratory infection (URI) chronic November 21, 2024 10:10am [facility] Work Phone: 1(209) 292-535906-11-2025 Evaluation note* Diagnosis Onset Date Resolution Status Admit Date Hyperlipidemia chronic November 21, 2024 10:10am Hypothyroid chronic November 21 10:10am Morbid obesity chronic November 21, 2024 10:10am Recurrent upper respiratory infection (URI) chronic November 21, 2024 10:10am Health care maintenance [facility] 2024 10:10am [facility] Work Phone: 1(396) 359-281508-11-2023 History of Present illness Narrative* Bryan Cervantes MD - 01/21/2023 10:00 AM EDT Postop visit Patient referred by Dr. Lucrecia Sebastian from [place] for endometrial cancer. Underwent robotic hysterectomy BSO lymph node sampling A. UTERUS WITH BILATERAL ADNEXA, HYSTERECTOMY WITH BILATERAL SALPINGO- OOPHORECTOMY - UTERUS (170 G)WITH ENDOMETRIOID ADENOCARCINOMA (FIGO GRADE 1). UNREMARKABLE CERVIX LEIOMYOMATA BILATERAL UNREMARKABLE OVARIES WITH CORPORA ALBICANTIA BILATERAL UNREMARKABLE FALLOPIAN TUBES WITH RIGHT PARATUBAL CYSTS B. SENTINEL LYMPH NODE, RIGHT PELVIC, BIOPSY - AT LEAST TWO LYMPH NODES, NEGATIVE FOR METASTATIC CARCINOMA (0/2). C. SENTINEL LYMPH NODE, LEFT PELVIC, BIOPSY - ONE LYMPH NODE, NEGATIVE FOR METASTATIC CARCINOMA (0/1). at 1525 Comment MMR testing is pending with results to follow. Synoptic Checklist ENDOMETRIUM 8th Edition - Protocol posted: 05/26/2022 ENDOMETRIUM: HYSTERECTOMY - All Specimens SPECIMEN Procedure Total hysterectomy and bilateral salpingo-oophorectomy Specimen Integrity Opened TUMOR Tumor Site Endometrium Tumor Size Greatest Dimension (Centimeters): 2.5 cm Histologic Type Endometrioid carcinoma, NOS Histologic Grade FIGO grade 1 Two-Tier Grading System Low grade (encompassing FIGO 1 and 2) Myometrial Invasion Present Depth of Myometrial Invasion 1 mm Myometrial Thickness 20 mm Percentage of Myometrial Invasion Estimated to be less than 50% Adenomyosis Not identified Uterine Serosa Involvement Not identified Lower Uterine Segment Involvement Not identified Cervical Stromal Involvement Not identified Other Tissue / Organ Involvement Not identified Peritoneal / Ascitic Fluid Not submitted / unknown Lymphatic and / or Vascular Invasion Not identified REGIONAL LYMPH NODES Regional Lymph Node Status All regional lymph nodes negative for tumor cells Lymph Nodes Examined Total Number of Pelvic Nodes Examined At least: 3 Number of Pelvic [place] Nodes Examined At least: 3 Total Number of Para-aortic Nodes Examined 0 pTNM CLASSIFICATION (AJCC 8th Edition) Reporting of pT, pN, and (when applicable) pM categories is based on information available to the pathologist at the time the report is issued. As per the AJCC (Chapter 1, 8th Ed.) it is the managingphysician's responsibility to establish the final pathologic stage based upon all pertinent information, including but potentially not limited to this pathology report. pT Category pT1a pN Category pN0 N Suffix (sn) FIGO STAGE FIGO Stage IA Mismatch repair genes were intact. On exam the incisions of healed nicely A) stage Ia grade 1 endometrial cancer, low risk for disease recurrence. P) recommend follow-up every 6 months for 5 years and annually thereafter with Dr. Lucrecia Sebastian's office. documented in this [facility]07-28-2023 Telephone encounter Note* Telephone Encounter - Bryan Cervantes MD - 01/07/2023 4:17 PM EDT [facility] paTH [id number] Miscellaneous Notes* Telephone Encounter - Bryan Cervantes MD - 01/07/2023 4:17 PM EDT Called with paTH documented in this [facility] [id number] NotePatient: Conner Fitzpatric Procedure Summary Date: 01/06/23 Room / Location: [address] Operating Room Anesthesia Start: 650 Anesthesia Stop: 818 Procedures: ROBOTIC ASSISTED TOTAL LAPAROSCOPIC HYSTERECTOMY, BILATERAL SALPINGO OOPHORECTOMY , BILATERAL PELVIC SENTINEL LYMPH NODE BIOPSY WITH ICG PROTOCOL (Abdomen) LYMPHANGIOGRAPHY FOR IDENTIFICATION SENTINEL NODE Diagnosis: Malignant neoplasm of endometrium (HCC) (Malignant neoplasm of endometrium (HCC) [C54.1]) Surgeons: Bryan Cervantes MD Responsible Provider: Joseph Sierra MD Anesthesia Type: general, regional ASA Status: 3 Anesthesia Type: general, regional Vitals Value Taken Time BP 108/43 01/06/23 0816 Temp 36.1 ?C (97 ?F) 01/06/23 0816 Pulse 85 01/06/23 0821 Resp 20 01/06/23 0821 SpO2 98 % 01/06/23 0821 Vitals shown include unvalidated device data. Anesthesia Post Evaluation Patient location during evaluation: PACU Patient participation: complete - patient participated Level of consciousness: awake and alert Pain management: satisfactory to patient Airway patency: patent Dental Injury: no Cardiovascular status: acceptable, blood pressure returned to baseline and hemodynamically stable Respiratory status: acceptable and spontaneous ventilation Hydration status: euvolemic Nausea/Vomiting: controlled No notable events documented. Patient can be discharged once all PACU criteria has been met.[facility]07-27-2023 NotePatient: Conner Fitzpatric Procedure Summary Date: 01/06/23 Room / Location: [address] Operating Room Anesthesia Start: 650 Anesthesia Stop: 08 Procedures: ROBOTIC ASSISTED TOTAL LAPAROSCOPIC HYSTERECTOMY, BILATERAL SALPINGO OOPHORECTOMY , BILATERAL PELVIC SENTINEL LYMPH NODE BIOPSY WITH ICG PROTOCOL (Abdomen) LYMPHANGIOGRAPHY FOR IDENTIFICATION SENTINEL NODE Diagnosis: Malignant neoplasm of endometrium (HCC) (Malignant neoplasm of endometrium (HCC) [C54.1]) Surgeons: Bryan Cervantes MD Responsible Provider: Joseph Sierra MD Anesthesia Type: general, regional ASA Status: 3 Anesthesia Type: general, regional Vitals Value Taken Time BP 108/43 01/06/23 0816 Temp 36.1 ?C (97 ?F) 01/06/23 0816 Pulse 85 01/06/23 0821 Resp 20 01/06/23 08 SpO2 98 % 01/06/23820 Vitals shown include unvalidated device data. Anesthesia Post Evaluation Patient location during evaluation: PACU Patient participation: complete - patient participated Level of consciousness: awake and alert Pain management: satisfactory to patient Multimodal analgesia pain management approach Airway patency: patent Two or more strategies used to mitigate risk of obstructive sleep apnea Cardiovascular status: acceptable and hemodynamically stable Respiratory status: acceptable, face mask and spontaneous ventilation Hydration status: acceptable No notable events documented. MIPS #430 PONV Patient received an inhalational anesthetic (4554F) Patient does not exhibit three or more risk factors for PONV (X0430)) MIPS # 424 Perioperative Temperature Management Anesthesia time was 60 minutes or longer (4255F) Anesthesai administered was General (inhalational or TIVA) or Neuraxial block (X0424) At least one body temperature greater than 95.8F/35.5C achieved within the 30 mins immediately prior to or the 15 minutes immediately following anesthesia end time (G9771) MIPS #477 Multimodal Pain Management Not emergent case Patient was administered multimodal pain management (two or more drugs and/or interventions excluding systemic opioids) in the periopeartive period occurring at some time between 6 hours prior to anesthesia start time until discharged from PACU (G2148) MIPS #404 Anesthesiology Smoking Abstinence The patient is not a current smoker (e.g. cigarette, cigar, pipe, e-cigarette/vaping/marijuana) If no stop here (XX404) I completed my handoff to the receiving clinician during which we: 1. Identified the patient 2. Identified the responsible provider 3. Reviewed the pertinent medical history 4. Discussed the surgical course 5. Reviewed intra-op anesthesia management and issues during anesthesia 6. Set expectations for post-procedure period 7. Allowed opportunity for questions and acknowledgement of understanding.[facility]07-27-2023 Note* Perioperative Nursing Note - Brittany Sanchez RN - 01/06/2023 10:12 AM EDT Discharge instructions given to pt and friend at bedside. All questions answered. All belongings atbedside. VSS. Pt resting comfortably with tolerable pain [id number] Miscellaneous Notes* Perioperative Nursing Note - Brittany Sanchez RN - 01/06/2023 10:12 AM EDT Discharge instructions given to pt and friend at bedside. All questions answered. All belongings atbedside. VSS. Pt resting comfortably with tolerable pain * Perioperative Nursing Note - Brittany Sanchez RN - 01/06/2023 10:06 AM EDT Pt ambulated to BR with standby assist Able to void * Perioperative Nursing Note - Brittany Sanchez RN - 01/06/2023 9:14 AM EDT Friend to bedside * Perioperative Nursing Note - Brittany Sanchez RN - 01/06/2023 8:25 AM EDT Patient family/visitor updated by RN at this time. * Op Note - Bryan Cervantes MD - 01/06/2023 6:51 AM EDT Date of surgery 01/06/2023 Preoperative diagnosis endometrial cancer morbid obesity Postop diagnosis endometrial cancer morbid obesity uterine leiomyoma Procedure robotic hysterectomy BSO bilateral identification of sentinel lymph nodes with bilateral pelvic lymph node dissection Surgeon Billy Anesthesia General Operation patient identified brought to the operating room and after ministration of general anesthetic underwent abdominal perineal vaginal prep and draped in the low lithotomy Cixi and using the yellowfin stirrups. Timeout was performed antibiotics were given compression stockings on and running ICG green dye wasinjected in the cervix manipulator placed in the uterus with a Michelle ring around the cervix and a Jerry catheter in the bladder. Using a knife a small incision was made in the left upper quadrant usingthe Mobile Armor system the abdominal cavity was entered with a 5 mm blunt port under direct vision insufflated with CO2 and then blunt da More ports were placed under direct vision. Intra-abdominal expiration was normal Trendelenburg was used to displace the bowel about the pelvis and the da More was docked. The round ligaments were coagulated and divided allowing the pararectal and paravesical spaces to be made using firefly technology sentinel lymph nodes were detected on the right left pelvicsidewalls and after identifying the major neurovascular structures of the pelvis the lymph nodes were dissected out using monopolar and bipolar cautery. On the right side there in the obturator region and on the left side at the junction of the internal/external iliac artery and vein. No suspiciousadenopathy was noted. The ovarian vessels then skeletonized above the ureters coagulated and divided. The bladder was dissected inferiorly allowing uterine vessels be skeletonized coagulated and divided as were the upper cardinal ligaments down the top of the ring were colpotomy incision was made the uterus was then closed into a large kidney bag the lymph nodes ruled out through the vagina the cuff was closed using a running 0 V-Loc suture and the pelvis was irrigated. The da More was undocked the bag was brought up to the midline incision which was extended using Bovie cautery for the subcutaneous tissue and the fascia. The uterus was removed inside of the bag the defect and the fascia was closed with a running 0 looped PDS followed by interrupted 0 PDS and subtendinous tissue and subcuticular 4-0 Monocryl and Dermabond on all the skin incisions. The Jerry was removed 600 cc of clearurine and she was taken to cover room in stable condition by anesthesia with a minimal EBL * Brief Op Note - Bryan Cervantes MD - 01/06/2023 6:51 AM EDT Date: 01/06/2023 Location: [facility] OR Name: Conner Jones, : 1965, Diagnosis Pre-op Diagnosis * Malignant neoplasm of endometrium (HCC) [C54.1] Morbid obesity Uterine leiomyoma Post-op Diagnosis * Malignant neoplasm of endometrium (HCC) [C54.1] Procedures ROBOTIC ASSISTED TOTAL LAPAROSCOPIC HYSTERECTOMY, BILATERAL SALPINGO OOPHORECTOMY , BILATERAL PELVIC SENTINEL LYMPH NODE BIOPSY WITH ICG PROTOCOL 32772 - AK LAPS TOTAL HYSTERECT 250 GM/< W/RMVL TUBE/OVARY LYMPHANGIOGRAPHY FOR IDENTIFICATION SENTINEL NODE 66901 - [place] INJ RADIOACTIVE TRACER FOR ID OF SENTINEL NODE Surgeons * Bryan Cervantes - Primary Procedure Summary Anesthesia: General ASA: III Estimated Blood Loss: 10 mL Drains: [REMOVED] Urethral Catheter Non-latex 16 Fr. (Removed) Specimens ID Source Type Tests Collected By Collected At Frozen? Priority Lab ID 1 Uterus Tissue TISSUE EXAM Bryan Cervantes MD 01/06/23 0738 Routine Description: UTERUS, CERVIX, BILATERAL TUBES AND OVARIES Comment: WEIGHT - 200 g 2 Lymph Node, [place], All sites Tissue TISSUE EXAM Bryan Cervantes MD 01/06/23 0740 No Routine Description: RIGHT PELVIC SENTINEL LYMPH NODE 3 Lymph Node, [place], All sites Tissue TISSUE EXAM Bryan Cervantes MD 01/06/23 0740 No Routine Description: LEFT PELVIC SENTINEL LYMPH NODE Staff: Tractor Crane Engineer: Amy Elmore RN Scrub Person: Minh Thompson Stretcher Leveler Operator Orienting: Christine Enrique Findings: Uterine leiomyoma grade 1 endometrial cancer, no extrauterine extension Complications: None; patient tolerated the procedure well. Specimens Collected: Order Name Source Comment Collection Info Order Time CBC (HEMOGRAM) Blood, Venous Collected By: Madison Enrique RN 01/06/2023 5:34 AM BLOOD TYPE AND SCREEN GEL Blood, Venous HOLD. Specimen is valid for 3 days - nurse to verify valid specimen Collected By: Madison Enrique RN 01/06/2023 5:34 AM HCG QUALITATIVE URINE Urine, Clean Catch Discontinue this order if: 1. patient is older than 55 years old 2. has had a prior hysterectomy 3. today's surgery is for treatment of known or suspected ectopic or loss. 4. patient has a known intrauterine but this is a needed surgery. 01/06/2023 5:34 AM POTASSIUM WITH MG REFLEX For patients on dialysis to draw potassium day of surgery 01/06/2023 5:34 AM PROTHROMBIN TIME If patient on coumadin within 4 days prior. 01/06/2023 5:34 AM TISSUE EXAM Uterus Pre-op diagnosis: Malignant neoplasm of endometrium (HCC) [C54.1] GRADE 1 PLEASE DO MMR PROTEIN IHS Collected By: Bryan Cervantes MD 01/06/2023 7:38 AM Wound Class: Class II: Clean-Contaminated Blood Products: None Prophylactic Antibiotics: Procedure appropriate prophylactic antibiotic(s) given within 1 hour of surgical incision (two hours if receiving Vancomycin or flouroquinolone) documented in this [facility]07-27-2023 Note* Perioperative Nursing Note - Brittany Sanchez RN - 01/06/2023 10:06 AM EDT Pt ambulated to BR with standby assist Able to void [id number] Note* Perioperative Nursing Note - Brittany Sanchez RN - 01/06/2023 9:14 AM EDT Friend to bedside [id number] NoteAirway Date/Time: 01/06/2023 6:58 AM Urgency: scheduled Airway not difficult General Information and Staff Patient location during procedure: OR Resident/INTERNAL MEDICINE PHYSICIAN ASSISTANT: Silvia Harrison APRN Unique INTERNAL MEDICINE PHYSICIAN ASSISTANT Performed: INTERNAL MEDICINE PHYSICIAN ASSISTANT Performed by: DEE Blum CRNA Authorized by: DEE Blum CRNA Indications and Patient Condition Indications for airway management: anesthesia and airway protection Sedation level: Asleep Preoxygenated: yes Patient position: sniffing Mask difficulty assessment: 1 - vent by mask Final Airway Details Final airway type: endotracheal airway Successful airway: ETT Cuffed: yes Successful intubation technique: direct laryngoscopy Facilitating devices/methods: intubating stylet Endotracheal tube insertion site: oral Blade: Jaylan Blade size: #3 ETT size (mm): 7.0 Cormack-Lehane Classification: grade I - full view of glottis Placement verified by: chest auscultation, capnometry and palpation of cuff Measured from: lips ETT to lips (cm): 21 Number of attempts at approach: 1 Number of other approaches attempted: 0 Additional Comments ETT #[id number] NotePeripheral Block Time Out: 01/06/2023 6:55 AM Patient location during procedure: Procedural Start time: 01/06/2023 6:55 AM End time: 01/06/2023 6:58 AM Reason for block: at surgeon's request and post-op pain management Staffing Performed: INTERNAL MEDICINE PHYSICIAN ASSISTANT Resident/INTERNAL MEDICINE PHYSICIAN ASSISTANT: Abby Cruz RN Preanesthetic Checklist Completed: patient identified, IV checked, site marked, risks and benefits discussed, surgical consent, monitors and equipment checked, pre-op evaluation and timeout performed Region: [place] Primary: TAP (Bupivacaine 0.375%/ Epi 1:200,000/ Dex 0.1mg/mL 40ml divided evenly bilateral) Secondary: Upper rectus (Bupivacaine 0.375%/ Epi 1:200,000/ Dex 0.1mg/mL 20ml divided evenly bilateral) Peripheral Block Patient position: supine Prep: ChloraPrep Patient monitoring: heart rate, environmental monitoring specialist, continuous pulse ox and continuous capnometry O2: ETT/LMA Laterality: bilateral Injection technique: single-shot Guidance: ultrasound guided -image retained in chart, tip of the needle identified by ultraound during injection. Needle Needle: 21G X 110 mm Additional Notes 01/06/2023 6:55 AM Assessment Injection assessment: negative aspiration for heme, no paresthesia on injection and incremental injection Heart rate change: no Slow fractionated injection: yes Required Documentation: Relevant anatomy identified (Nerves, Vessels, Muscles), Negative for blood on aspiration, Local anesthetic injected incrementally with intermittent aspiration every 5 mL, Normal resistance with injection, No EKG changes noted, No symptoms of toxicity, Local anesthetic spread visualized around nerves or plane. and Local anesthetic injected without difficultyMedications cyfXPASFdhxjw-sfblhrxwcpn-afcoocjagsn (TAP) syringe - Injection 60 mL - 01/06/2023 6:55:00 [facility]07-27-2023 NotePatient: Conner Jones Procedure Information Date/Time: 01/06/23 0700 Procedures: ROBOTIC ASSISTED TOTAL LAPAROSCOPIC HYSTERECTOMY, BILATERAL SALPINGO OOPHORECTOMY , BILATERAL PELVIC SENTINEL LYMPH NODE BIOPSY WITH ICG PROTOCOL (Abdomen) LYMPHANGIOGRAPHY FOR IDENTIFICATION SENTINEL NODE Location: [facility] OR [address] [place] [address] Operating Room Surgeons: Bryan Cervantes MD Relevant Problems No relevant active problems Past Medical History: Past Medical History: No date: Bilateral carpal tunnel syndrome No date: Bilateral knee pain No date: Endometrial cancer (CMS/HCC) (HCC) No date: Gastric reflux No date: GERD (gastroesophageal reflux disease) No date: Hyperlipemia No date: Hypothyroid No date: Low iron No date: Post-menopausal No date: Thyroid disease Past Surgical History: Past Surgical History: No date: ANKLE SURGERY No date: COLONOSCOPY No date: IMGHX XR WRIST LEFT CARPAL TUNNEL No date: IMGHX XR WRIST RIGHT CARPAL TUNNEL No date: VASCULAR SURGERY; Left Comment: varicose veins Social History: TOBACCO: reports that she quit smoking about 13 years ago. Her smoking use included cigarettes. She has a 25.00 pack-year smoking history. She has never used smokeless tobacco. ETOH: reports current alcohol use. Social History Substance and Sexual Activity Drug Use Never Family History: Family History Problem Relation Name Age of Onset ? Skin cancer Father ? Heart disease Father ? Cancer Paternal Grandmother ? Other Paternal Grandfather cerebral vascular accident Screening: Postmenopausal Clinical information reviewed: Tobacco Allergies Meds Med Hx Surg Hx OB Status Fam Hx Soc Hx Physical Exam Airway Mallampati: II TM distance: >3 FB Neck ROM: full Mouth Open: normalendotracheal tube not in place Cardiovascular Dental (+) chipped Comments: Chipped left upper and lower molars Pulmonary Abdominal Anesthesia Plan patient is NPO appropriate Any family history or previous problems with anesthesia no ASA 3 general and regional Any family history or previous problems with anesthesia no (TAP blocks for post op pain management) The patient is not a current smoker. Anesthetic plan and risks discussed with patient. AJ Screening Labs: Lab Results Component Value Date WBC 7.0 01/06/2023 HGB 14.6 01/06/2023 HCT 43.3 01/06/2023 MCV 88.6 01/06/2023 PLT 210 01/06/2023 No results found for: NA, K, CL, CO2, BUN, CREATININE, GLUCOSE, CALCIUM, PROT, BILIRUBINFL, ALKPHOS, AST, ALT, EGFR, GLOB Pain Score: Scheduled No echocardiogram results found for the past 14 days No results found for this or any previous visit.[facility] 01-06-2023 NoteH&P reviewed. The patient was examined and there are no changes to the H&P.[facility]07-27-2023 Note* Perioperative Nursing Note - Brittany Sanchez RN - 01/06/2023 8:25 AM EDT Patient family/visitor updated by RN at this time. [id number] [facility] Discharge instructions* Discharge Instructions* Chaya Bach MD - 01/06/2023 8:01 AM EDT Please follow your post operative care instructions given to you by your [facility]cologist's office at your pre operative visit. Please call the office with questions or concerns and be sure to follow up at your scheduled post operative visit. documented in this [facility]07-27-2023 Note* Op Note - Bryan Cervantes MD - 01/06/2023 6:51 AM EDT Date of surgery 01/06/2023 Preoperative diagnosis endometrial cancer morbid obesity Postop diagnosis endometrial cancer morbid obesity uterine leiomyoma Procedure robotic hysterectomy BSO bilateral identification of sentinel lymph nodes with bilateral pelvic lymph node dissection Surgeon Billy Anesthesia General Operation patient identified brought to the operating room and after ministration of general anesthetic underwent abdominal perineal vaginal prep and draped in the low lithotomy Cixi and using the yellowfin stirrups. Timeout was performed antibiotics were given compression stockings on and running ICG green dye wasinjected in the cervix manipulator placed in the uterus with a Michelle ring around the cervix and a Jerry catheter in the bladder. Using a knife a small incision was made in the left upper quadrant usingthe Mobile Armor system the abdominal cavity was entered with a 5 mm blunt port under direct vision insufflated with CO2 and then blunt da More ports were placed under direct vision. Intra-abdominal expiration was normal Trendelenburg was used to displace the bowel about the pelvis and the da More was docked. The round ligaments were coagulated and divided allowing the pararectal and paravesical spaces to be made using firefly technology sentinel lymph nodes were detected on the right left pelvicsidewalls and after identifying the major neurovascular structures of the pelvis the lymph nodes were dissected out using monopolar and bipolar cautery. On the right side there in the obturator region and on the left side at the junction of the internal/external iliac artery and vein. No suspiciousadenopathy was noted. The ovarian vessels then skeletonized above the ureters coagulated and divided. The bladder was dissected inferiorly allowing uterine vessels be skeletonized coagulated and divided as were the upper cardinal ligaments down the top of the ring were colpotomy incision was made the uterus was then closed into a large kidney bag the lymph nodes ruled out through the vagina the cuff was closed using a running 0 V-Loc suture and the pelvis was irrigated. The da More was undocked the bag was brought up to the midline incision which was extended using Bovie cautery for the subcutaneous tissue and the fascia. The uterus was removed inside of the bag the defect and the fascia was closed with a running 0 looped PDS followed by interrupted 0 PDS and subtendinous tissue and subcuticular 4-0 Monocryl and Dermabond on all the skin incisions. The Jerry was removed 600 cc of clearurine and she was taken to cover room in stable condition by anesthesia with a minimal EBL [id number] [facility]* Brief Op Note - Bryan Cervantes MD - 01/06/2023 6:51 AM EDT Date: 01/06/2023 Location: [facility] OR Name: Conner Jnoes, : 1965, Diagnosis Pre-op Diagnosis * Malignant neoplasm of endometrium (HCC) [C54.1] Morbid obesity Uterine leiomyoma Post-op Diagnosis * Malignant neoplasm of endometrium (HCC) [C54.1] Procedures ROBOTIC ASSISTED TOTAL LAPAROSCOPIC HYSTERECTOMY, BILATERAL SALPINGO OOPHORECTOMY , BILATERAL PELVIC SENTINEL LYMPH NODE BIOPSY WITH ICG PROTOCOL 50944 - AK LAPS TOTAL HYSTERECT 250 GM/< W/RMVL TUBE/OVARY LYMPHANGIOGRAPHY FOR IDENTIFICATION SENTINEL NODE 72481 - AK INJ RADIOACTIVE TRACER FOR ID OF SENTINEL NODE Surgeons * Bryan Cervantes - Primary Procedure Summary Anesthesia: General ASA: III Estimated Blood Loss: 10 mL Drains: [REMOVED] Urethral Catheter Non-latex 16 Fr. (Removed) Specimens ID Source Type Tests Collected By Collected At Frozen? Priority Lab ID 1 Uterus Tissue TISSUE EXAM Bryan Cervantes MD 01/06/23 0798 Routine Description: UTERUS, CERVIX, BILATERAL TUBES AND OVARIES Comment: WEIGHT - 200 g 2 Lymph Node, [place], All sites Tissue TISSUE EXAM Bryan Cervantes MD 01/06/23 0740 No Routine Description: RIGHT PELVIC SENTINEL LYMPH NODE 3 Lymph Node, [place], All sites Tissue TISSUE EXAM Bryan Cervantes MD 01/06/23 0740 No Routine Description: LEFT PELVIC SENTINEL LYMPH NODE Staff: Tractor Crane Engineer: Amy Elmore RN Scrub Person: Minh Thompson Stretcher Leveler Operator Orienting: Christine Enrique Findings: Uterine leiomyoma grade 1 endometrial cancer, no extrauterine extension Complications: None; patient tolerated the procedure well. Specimens Collected: Order Name Source Comment Collection Info Order Time CBC (HEMOGRAM) Blood, Venous Collected By: Madison Enrique RN 01/06/2023 5:34 AM BLOOD TYPE AND SCREEN GEL Blood, Venous HOLD. Specimen is valid for 3 days - nurse to verify valid specimen Collected By: Madison Enrique RN 01/06/2023 5:34 AM HCG QUALITATIVE URINE Urine, Clean Catch Discontinue this order if: 1. patient is older than 55 years old 2. has had a prior hysterectomy 3. today's surgery is for treatment of known or suspected ectopic or loss. 4. patient has a known intrauterine but this is a needed surgery. 01/06/2023 5:34 AM POTASSIUM WITH MG REFLEX For patients on dialysis to draw potassium day of surgery 01/06/2023 5:34 AM PROTHROMBIN TIME If patient on coumadin within 4 days prior. 01/06/2023 5:34 AM TISSUE EXAM Uterus Pre-op diagnosis: Malignant neoplasm of endometrium (HCC) [C54.1] GRADE 1 PLEASE DO MMR PROTEIN IHS Collected By: Bryan Cervantes MD 01/06/2023 7:38 AM Wound Class: Class II: Clean-Contaminated Blood Products: None Prophylactic Antibiotics: Procedure appropriate prophylactic antibiotic(s) given within 1 hour of surgical incision (two hours if receiving Vancomycin or flouroquinolone) [facility] [id number] Attending History and physical note* Bryan Cervantes MD - 01/06/2023 6:28 AM EDT H&P reviewed. The patient was examined and there are no changes to the H&P. Source Note - Bryan Cervantes MD - 12/31/2022 11:30 AM EDT HPI: Conner Jones is a pleasant 57 y.o. female G0 who presents in consultation from WILI Ayala for further evaluation and management of Gr1 endometrial cancer. She initiallypresented with 3-week history of postmenopausal bleeding. Patient underwent endometrial biopsy which shows a grade 1 endometrial cancer Mild cramping, describes the bleeding is mild to moderate in amount, not associate with any other modifying factors. Denies any abdominal pain or distention, change in bowel or bladder habits or appetite. Denies any history of AK DVT or pulmonary embolism. Is here today with her friend. 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 Past Medical History: Diagnosis Date Bilateral carpal tunnel syndrome Bilateral knee pain Gastric reflux Hyperlipemia Hypothyroid Low iron Post-menopausal Thyroid disease Past Surgical History: Procedure Laterality Date ANKLE SURGERY IMGHX XR WRIST LEFT CARPAL TUNNEL IMGHX XR WRIST RIGHT CARPAL TUNNEL VASCULAR SURGERY Left leg vein for varicose veins Family History Problem Relation Name Age of Onset Skin cancer Father Heart disease Father Cancer Paternal Grandmother Other Paternal Grandfather cerebral vascular accident Social History Socioeconomic History Marital status: Unknown Tobacco Use Smoking status: Never Smokeless tobacco: Never Substance and Sexual Activity Alcohol use: Yes Comment: social Drug use: Never GM with colon cancers Current Outpatient Medications Medication Sig Dispense Refill clotrimazole-betamethasone (Lotrisone) cream Apply topically 2 times daily. FAMOTIDINE-CA CARB-MAG HYDROX PO Take by mouth. levothyroxine (Tirosint) 112 MCG capsule Take by mouth every morning (before breakfast). No current facility-administered medications for this visit. Allergies as of 12/31/2022 (No Known Allergies) Review of Systems: Review of Systems Genitourinary: Positive for vaginal bleeding. BP 132/74 Pulse 83 Ht 1.778 m (5' 10) Wt 130 kg (287 lb) BMI 41.18 kg/m Physical Exam: Physical Exam Vitals and nursing note reviewed. Exam conducted with a sanitation inspector present. Constitutional: Appearance: Normal appearance. Cardiovascular: Rate and Rhythm: Normal rate and regular rhythm. Pulmonary: Effort: Pulmonary effort is normal. Breath sounds: Normal breath sounds. Abdominal: General: Abdomen is flat. Palpations: Abdomen is soft. Genitourinary: General: Normal vulva. Labia: Right: No lesion. Left: No lesion. Uterus: Normal. Adnexa: Right adnexa normal and left adnexa normal. Comments: Cervix is nulliparous and small Lymphadenopathy: Upper Body: Right upper body: No supraclavicular adenopathy. Left upper body: No supraclavicular adenopathy. Lower Body: No right inguinal adenopathy. No left inguinal adenopathy. Skin: General: Skin is warm and dry. Neurological: Mental Status: She is alert. Psychiatric: Mood and Affect: Mood normal. Behavior: Behavior normal. Labs: No components found for: CBC No components found for: CMP Pathology: Report is been reviewed showing a grade 1 endometrial cancer ASSESSMENT/PLAN: Diagnosis Plan 1. Endometrial cancer (CMS/HCC) (HCC) Discussed treatment options. Recommend proceeding with robotic hysterectomy BSO lymph node samplingfor staging. I did discuss the risk of major abdominal surgery to include bleeding infection and damage to other organs. We also discussed the potential need for adjuvant therapy afterwards. All the patient's questions were answered to the best my ability. Total time spent in review of multiple EMR, coordination of care and counseling patient about surgical treatment was 35 minutes [facility] [id number] History and physical note* Bryan Cervantes MD - 01/06/2023 6:28 AM EDT H&P reviewed. The patient was examined and there are no changes to the H&P. Source Note - Bryan Cervantes MD - 12/31/2022 11:30 AM EDT HPI: Conner Jones is a pleasant 57 y.o. female G0 who presents in consultation from WILI Ayala for further evaluation and management of Gr1 endometrial cancer. She initiallypresented with 3-week history of postmenopausal bleeding. Patient underwent endometrial biopsy which shows a grade 1 endometrial cancer Mild cramping, describes the bleeding is mild to moderate in amount, not associate with any other modifying factors. Denies any abdominal pain or distention, change in bowel or bladder habits or appetite. Denies any history of AK DVT or pulmonary embolism. Is here today with her friend. 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 Past Medical History: Diagnosis Date Bilateral carpal tunnel syndrome Bilateral knee pain Gastric reflux Hyperlipemia Hypothyroid Low iron Post-menopausal Thyroid disease Past Surgical History: Procedure Laterality Date ANKLE SURGERY IMGHX XR WRIST LEFT CARPAL TUNNEL IMGHX XR WRIST RIGHT CARPAL TUNNEL VASCULAR SURGERY Left leg vein for varicose veins Family History Problem Relation Name Age of Onset Skin cancer Father Heart disease Father Cancer Paternal Grandmother Other Paternal Grandfather cerebral vascular accident Social History Socioeconomic History Marital status: Unknown Tobacco Use Smoking status: Never Smokeless tobacco: Never Substance and Sexual Activity Alcohol use: Yes Comment: social Drug use: Never GM with colon cancers Current Outpatient Medications Medication Sig Dispense Refill clotrimazole-betamethasone (Lotrisone) cream Apply topically 2 times daily. FAMOTIDINE-CA CARB-MAG HYDROX PO Take by mouth. levothyroxine (Tirosint) 112 MCG capsule Take by mouth every morning (before breakfast). No current facility-administered medications for this visit. Allergies as of 12/31/2022 (No Known Allergies) Review of Systems: Review of Systems Genitourinary: Positive for vaginal bleeding. BP 132/74 Pulse 83 Ht 1.778 m (5' 10) Wt 130 kg (287 lb) BMI 41.18 kg/m Physical Exam: Physical Exam Vitals and nursing note reviewed. Exam conducted with a sanitation inspector present. Constitutional: Appearance: Normal appearance. Cardiovascular: Rate and Rhythm: Normal rate and regular rhythm. Pulmonary: Effort: Pulmonary effort is normal. Breath sounds: Normal breath sounds. Abdominal: General: Abdomen is flat. Palpations: Abdomen is soft. Genitourinary: General: Normal vulva. Labia: Right: No lesion. Left: No lesion. Uterus: Normal. Adnexa: Right adnexa normal and left adnexa normal. Comments: Cervix is nulliparous and small Lymphadenopathy: Upper Body: Right upper body: No supraclavicular adenopathy. Left upper body: No supraclavicular adenopathy. Lower Body: No right inguinal adenopathy. No left inguinal adenopathy. Skin: General: Skin is warm and dry. Neurological: Mental Status: She is alert. Psychiatric: Mood and Affect: Mood normal. Behavior: Behavior normal. Labs: No components found for: CBC No components found for: CMP Pathology: Report is been reviewed showing a grade 1 endometrial cancer ASSESSMENT/PLAN: Diagnosis Plan 1. Endometrial cancer (CMS/HCC) (HCC) Discussed treatment options. Recommend proceeding with robotic hysterectomy BSO lymph node samplingfor staging. I did discuss the risk of major abdominal surgery to include bleeding infection and damage to other organs. We also discussed the potential need for adjuvant therapy afterwards. All the patient's questions were answered to the best my ability. Total time spent in review of multiple EMR, coordination of care and counseling patient about surgical treatment was 35 minutes documented in this [facility]07-24-2023 NotePatient: Conner Jones Procedure Information Date/Time: 01/03/23929 Procedure: PAT OPTIMIZATION CALL Location: [facility] Pre-Admit Testing Relevant Problems No relevant active problems Past Medical History: Past Medical History: No date: Bilateral carpal tunnel syndrome No date: Bilateral knee pain No date: Gastric reflux No date: GERD (gastroesophageal reflux disease) No date: Hyperlipemia No date: Hypothyroid No date: Low iron No date: Post-menopausal No date: Thyroid disease Past Surgical History: Past Surgical History: No date: ANKLE SURGERY No date: COLONOSCOPY No date: IMGHX XR WRIST LEFT CARPAL TUNNEL No date: IMGHX XR WRIST RIGHT CARPAL TUNNEL No date: VASCULAR SURGERY; Left Comment: varicose veins Social History: TOBACCO: reports that she quit smoking about 13 years ago. Her smoking use included cigarettes. She has a 25.00 pack-year smoking history. She has never used smokeless tobacco. ETOH: reports current alcohol use. Social History Substance and Sexual Activity Drug Use Never Family History: Family History Problem Relation Name Age of Onset ? Skin cancer Father ? Heart disease Father ? Cancer Paternal Grandmother ? Other Paternal Grandfather cerebral vascular accident Screening: Postmenopausal Clinical information reviewed: Tobacco Allergies Meds Med Hx Surg Hx Fam Hx Soc Hx Physical Exam Airway Mallampati: unable to assess Cardiovascular Dental Pulmonary Abdominal Anesthesia Plan Any family history or previous problems with anesthesia ASA 3 general and regional (Chart info-PAT phone call CBC and T&S ordered DOS per surgeon Glucose ordered DOS ) The patient is not a current smoker. ERAS Type Short ERAS AJ Screening Labs: No results found for: WBC, HGB, HCT, MCV, PLT No results found for: NA, K, CL, CO2, BUN, CREATININE, GLUCOSE, CALCIUM, PROT, BILIRUBINFL, ALKPHOS, AST, ALT, EGFR, GLOB No echocardiogram results found for the past 14 days No results found for this or any previous visit.[facility] 12-31-2022 NoteHPI: Conner Jones is a pleasant 57 y.o. female G0 who presents in consultation from WILI Ayala for further evaluation and management of Gr1 endometrial cancer. She initiallypresented with 3-week history of postmenopausal bleeding. Patient underwent endometrial biopsy which shows a grade 1 endometrial cancer Mild cramping, describes the bleeding is mild to moderate in amount, not associate with any other modifying factors. Denies any abdominal pain or distention, change in bowel or bladder habits or appetite. Denies any history of AK DVT or pulmonary embolism. Is here today with her friend. 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 Past Medical History: Diagnosis Date Bilateral carpal tunnel syndrome Bilateral knee pain Gastric reflux Hyperlipemia Hypothyroid Low iron Post-menopausal Thyroid disease Past Surgical History: Procedure Laterality Date ANKLE SURGERY IMGHX XR WRIST LEFT CARPAL TUNNEL IMGHX XR WRIST RIGHT CARPAL TUNNEL VASCULAR SURGERY Left leg vein for varicose veins Family History Problem Relation Name Age of Onset Skin cancer Father Heart disease Father Cancer Paternal Grandmother Other Paternal Grandfather cerebral vascular accident Social History Socioeconomic History Marital status: Unknown Tobacco Use Smoking status: Never Smokeless tobacco: Never Substance and Sexual Activity Alcohol use: Yes Comment: social Drug use: Never GM with colon cancers Current Outpatient Medications Medication Sig Dispense Refill clotrimazole-betamethasone (Lotrisone) cream Apply topically 2 times daily. FAMOTIDINE-CA CARB-MAG HYDROX PO Take by mouth. levothyroxine (Tirosint) 112 MCG capsule Take by mouth every morning (before breakfast). No current facility-administered medications for this visit. Allergies as of 12/31/2022 (No Known Allergies) Review of Systems: Review of Systems Genitourinary: Positive for vaginal bleeding. BP 132/74 Pulse 83 Ht 1.778 m (5' 10) Wt 130 kg (287 lb) BMI 41.18 kg/m? Physical Exam: Physical Exam Vitals and nursing note reviewed. Exam conducted with a sanitation inspector present. Constitutional: Appearance: Normal appearance. Cardiovascular: Rate and Rhythm: Normal rate and regular rhythm. Pulmonary: Effort: Pulmonary effort is normal. Breath sounds: Normal breath sounds. Abdominal: General: Abdomen is flat. Palpations: Abdomen is soft. Genitourinary: General: Normal vulva. Labia: Right: No lesion. Left: No lesion. Uterus: Normal. Adnexa: Right adnexa normal and left adnexa normal. Comments: Cervix is nulliparous and small Lymphadenopathy: Upper Body: Right upper body: No supraclavicular adenopathy. Left upper body: No supraclavicular adenopathy. Lower Body: No right inguinal adenopathy. No left inguinal adenopathy. Skin: General: Skin is warm and dry. Neurological: Mental Status: She is alert. Psychiatric: Mood and Affect: Mood normal. Behavior: Behavior normal. Labs: No components found for: CBC No components found for: CMP Pathology: Report is been reviewed showing a grade 1 endometrial cancer ASSESSMENT/PLAN: Diagnosis Plan 1. Endometrial cancer (CMS/HCC) (HCC) Discussed treatment options. Recommend proceeding with robotic hysterectomy BSO lymph node sampling for staging. I did discuss the risk of major abdominal surgery to include bleeding infection and damage to other organs. We also discussed the potential need for adjuvant therapy afterwards. All the patient's questions were answered to the best my ability. Total time spent in review of multiple EMR, coordination of care and counseling patient about surgical treatment was [facility] NoteHPI: Conner Jones is a pleasant 57 y.o. female G0 who presents in consultation from WILI Ayala for further evaluation and management of Gr1 endometrial cancer. She initiallypresented with 3-week history of postmenopausal bleeding. Patient underwent endometrial biopsy which shows a grade 1 endometrial cancer Mild cramping, describes the bleeding is mild to moderate in amount, not associate with any other modifying factors. Denies any abdominal pain or distention, change in bowel or bladder habits or appetite. Denies any history of AK DVT or pulmonary embolism. Is here today with her friend. 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 Past Medical History: Diagnosis Date Bilateral carpal tunnel syndrome Bilateral knee pain Gastric reflux Hyperlipemia Hypothyroid Low iron Post-menopausal Thyroid disease Past Surgical History: Procedure Laterality Date ANKLE SURGERY IMGHX XR WRIST LEFT CARPAL TUNNEL IMGHX XR WRIST RIGHT CARPAL TUNNEL VASCULAR SURGERY Left leg vein for varicose veins Family History Problem Relation Name Age of Onset Skin cancer Father Heart disease Father Cancer Paternal Grandmother Other Paternal Grandfather cerebral vascular accident Social History Socioeconomic History Marital status: Unknown Tobacco Use Smoking status: Never Smokeless tobacco: Never Substance and Sexual Activity Alcohol use: Yes Comment: social Drug use: Never GM with colon cancers Current Outpatient Medications Medication Sig Dispense Refill clotrimazole-betamethasone (Lotrisone) cream Apply topically 2 times daily. FAMOTIDINE-CA CARB-MAG HYDROX PO Take by mouth. levothyroxine (Tirosint) 112 MCG capsule Take by mouth every morning (before breakfast). No current facility-administered medications for this visit. Allergies as of 12/31/2022 (No Known Allergies) Review of Systems: Review of Systems Genitourinary: Positive for vaginal bleeding. BP 132/74 Pulse 83 Ht 1.778 m (5' 10) Wt 130 kg (287 lb) BMI 41.18 kg/m? Physical Exam: Physical Exam Vitals and nursing note reviewed. Exam conducted with a sanitation inspector present. Constitutional: Appearance: Normal appearance. Cardiovascular: Rate and Rhythm: Normal rate and regular rhythm. Pulmonary: Effort: Pulmonary effort is normal. Breath sounds: Normal breath sounds. Abdominal: General: Abdomen is flat. Palpations: Abdomen is soft. Genitourinary: General: Normal vulva. Labia: Right: No lesion. Left: No lesion. Uterus: Normal. Adnexa: Right adnexa normal and left adnexa normal. Comments: Cervix is nulliparous and small Lymphadenopathy: Upper Body: Right upper body: No supraclavicular adenopathy. Left upper body: No supraclavicular adenopathy. Lower Body: No right inguinal adenopathy. No left inguinal adenopathy. Skin: General: Skin is warm and dry. Neurological: Mental Status: She is alert. Psychiatric: Mood and Affect: Mood normal. Behavior: Behavior normal. Labs: No components found for: CBC No components found for: CMP Pathology: Report is been reviewed showing a grade 1 endometrial cancer ASSESSMENT/PLAN: Diagnosis Plan 1. Endometrial cancer (CMS/HCC) (HCC) Discussed treatment options. Recommend proceeding with robotic hysterectomy BSO lymph node sampling for staging. I did discuss the risk of major abdominal surgery to include bleeding infection and damage to other organs. We also discussed the potential need for adjuvant therapy afterwards. All the patient's questions were answered to the best my ability. Total time spent in review of multiple EMR, coordination of care and counseling patient about surgical treatment was [facility] NotePap Smear Specimen AdequacyJuly 2022 11:27amComment.Satisfactory for evaluation. Endocervical and/or squamous metaplasticcells (endocervical component)are present.[facility] INTERFACED A#[id number] Medical CenterComment on above: Satisfactory for evaluation. Endocervical and/or squamous metaplasticcells (endocervical component)are present.12-21-2022 NotePap Smear QC ReviewJuly 2022 11:27amComment.Mio Yo, Supervisory Auto Service Instructor (ASCP)[facility] INTERFACED A#[id number] Medical CenterComment on above:Mio Yo, Supervisory Auto Service Instructor (ASCP)Evaluation note* Diagnosis Onset Date Resolution Status Health care maintenance acut e Bilateral carpal tunnel syndrome chronic Hyperlipidemia chronic Hypothyroid chronic [facility] Work Phone: Evaluation noteNo assessment information available [facility] Work Phone: Evaluation note* Diagnosis Onset Date Resolution Status Health care maintenance acut e Bilateral carpal tunnel syndrome chronic Bilateral knee pain chronic Hypothyroid chronic [facility] Work Phone: Evaluation note* Diagnosis Onset Date Resolution Status Bilateral knee pain chronic Hypothyroid chronic Bilateral carpal tunnel syndrome resolved Postmenopausal bleeding acut e Pap smear for cervical cancer screening noneactive Monilial intertrigo noneacti ve [facility] Work Phone: Evaluation note* Diagnosis Endometrial cancer (CMS/HCC) (HCC)- Primary Malignant neoplasm of corpus uteri, except isthmus Malignant neoplasm of endometrium (HCC) Malignant neoplasm of corpus uteri, except isthmus Postoperative pain Other acute postoperative pain [facility]* Diagnosis Post-operative state- Primary Other postprocedural status documented in [facility] Discharge instructionsAmbulatory Orders* Dermatology Location: [facility] Work Phone: Chief Complaint and Reason for Visit Chief Complaint YEARLY CHECK UP [facility] Bilateral carpal tunnel syndrome Hyperlipidemia Hypothyroid Chief Complaint YEARLY CHECK UP SCREENING Reason for Visit Health care maintena nce Bilateral carpal tunnel syndrome Hyperlipidemia Hypothyroid Chief Complaint YEARLY CHECK UP SCREENING BILAT UPPER CTS BILAT UPPER CTS Reason for Visit Health care maintena nce Bilateral carpal tunnel syndrome Hyperlipidemia Hypothyroid Chief Complaint YEARLY CHECK UP SCREENING BILAT UPPER CTS BILAT UPPER CTS Bilat wrists lt open carpal tunnel release lt open carpal tunnel release Reason for Visit [facility] Bilateral carpal tunnel syndrome Hyperlipidemia Hypothyroid Chief Complaint Bilat wrists lt open carpal tunnel release lt open carpal tunnel release left wrist RT CARPAL TUNNEL RELEASE RT CARPAL TUNNEL RELEASE Chief Complaint MED REFILLS [facility] Bilateral carpal tunnel syndrome Bilateral knee pain Hypothyroid Chief Complaint MED REFILLS possible emb, ref from Dr Cueva. PMB/ENDOMETRIAL TISSUE Reason for Visit Bilateral knee pain Hypothyroid Bilateral carpal tunnel syndrome Postmenopausal bleeding Pap smear for cervical cancer screening Monilial intertrigo Chief Complaint Admit Date 1 YR November 21, 2024 10:1 0am Reason for Visit Admit Date Health care maintenance November 21, 2024 10:10am Hyperlipidemia November 21, 2024 10:1 0am Hypothyroid November 21, 2024 10:1 0am Morbid obesity November 21, 2024 10:1 0am Recurrent upper respiratory infection (U RI) November 21, 2024 10:10am Chief Complaint Admit Date 1 YR November 21, 2024 10:1 0am 6 M FU December 10, 2024 9:18 am Reason for Visit Admit Date Hyperlipidemia November 21, 2024 10:1 0am Hypothyroid November 21, 2024 10:1 0am Morbid obesity November 21, 2024 10:1 0am Recurrent upper respiratory infection (U RI) November 21, 2024 10:10am Health care maintenance November 21, 2024 10:10am Family History No Family History Records Found Relationship Condition Age at Onset Recorded Date/T dangelo father Cardiac disease Unknown Malignant neoplasm of skin Unknown grandfather Cerebrovascular accident (CVA) Unknown grandmother Malignant neoplasm Unknown Relationship Condition Age at Onset Recorded Date/T dangelo father Cardiac disease Unknown Malignant neoplasm of skin Unknown grandfather Cerebrovascular accident (CVA) Unknown grandmother Malignant neoplasm Unknown Parkinson's disease Unknown Advance Directives No Advanced Directives Records Found Advance Directive Response Recorded Date/ Time Living Will No May 17 9:56am Power of Dump Motor Operator No May 17, 2018 9:56am Advance Directive Response Recorded Date/ Time Living Will No January 29 8:10am Power of Dump Motor Operator No January 29 022 8:10am Advance Directive Response Recorded Date/ Time Living Will No March 30 8:54am Power of Dump Motor Operator No March 30, 2022 8:54am Advance Directive Response Recorded Date/ Time Living Will No Rocky 20[place], 2 022 12:57pm Power of Dump Motor Operator No June 01, 2022 12:57pm Latest Code Status on File Code Status Date Activated Date Inactivated Comments Full Code 01/06/2023 5:34 AM 01/06/2023 12:24 PM Latest Code Status on File Code Status Date Activated Date Inactivated Comments Full Code 01/06/2023 5:34 AM 01/06/2023 12:24 PM Advance Directive Response Recorded Date/ Time Living Will No June 01 12:57pm Do you have a Healthcare Power of Dump Motor Operator? No June 01, 2022 12:57pm Summary Purpose Additional Source Comments Goals (unrecognized section and content) Goals may be documented in a n alternate sectionGoals may be documented in an alternate sectionGoals may be documented in an alternate sectionGoals may be documented in an alternate sectionGoals may be documented in an alternate sectionGoals may be documented in an alternate sectionGoals may be documented in an alternate sectionGoals may be documented in an alternate sectionGoals may be documented in an alternate section Care Teams (unrecognized sec tion and content) Team Status: Active Member Role Status Dates Dr. Usha Cueva MD Family Provider Active Dr. Usha Cueva MD Primary Care Provider Active Team Status: Inactive Member Role Status Dates Dr. Usha Cueva MD Primary Care P tiburcio, Attending Provider, Referring Provider Active Team Status: Inactive Member Role Status Dates Dr. Usha Cueva MD Primary Care Provider, Atten ding Provider Active Team Status: Inactive Member Role Status Dates Dr. Usha Cueva MD Primary Care Provider, Refer ring Provider Active Myah Ayala TAVERN KEEPER, TAVERN KEEPER-C Attending Provider Active Team Status: Inactive Member Role Status Dates Dr. Usha Cueva MD Primary Care Provider Active Myah Ayala TAVERN KEEPER, TAVERN KEEPER-C Attending Provider, Referring Provider Active Business Applications Manager Relationship Specialty Start Date End Date Usha Cueva [address] [place] [address] PCP - General Internal Medicine 12/31/22 Bryan Cervantes MD [address] [facility], [address] [place], [place] [id number] Consulting Physician Gynecologic Oncology 12/30/22 Business Applications Manager Relationship Specialty Start Date End Date Usha Cueva [address] [place] [address] PCP - General Internal Medicine 12/31/22 Bryan Cervantes MD [address] [facility] [place], [address] [place] [address] Consulting Physician Gynecologic Oncology 12/30/22 Business Applications Manager Relationship Specialty Start Date End Date Usha Cueva [address] [facility] [place], [address] [place] [address] PCP - General Internal Medicine 12/31/22 Bryan Cervantes MD [address] [facility] [place], [address] [place] [address] Consulting Physician Gynecologic Oncology 12/30/22 Team Status: Inactive Member Role Status Dates Dr. Usha Cueva MD Primary Care Provider Active Start: November 21, 2024 End: November 21, 2024 Dr. Usha Cueva MD Attending Provider Active Start: November 21, 2024 End: November 21, 2024 Dr. Usha Cueva MD Referring Provider Active Start: November 21, 2024 End: November 21, 2024 Team Status: Active Member Role Status Dates Dr. Usha Cueva MD Primary Care Provider Active Start: November 22, 2024 Dr. Usha Cueva MD Attending Provider Active Start: November 22, 2024 Dr. Usha Cueva MD Referring Provider Active Start: November 22, 2024 Team Status: Inactive Member Role Status Dates Dr. Usha Cueva MD Primary Care Provider Active Start: November 22, 2024 End: November 22, 2024 Dr. Usha Cueva MD Attending Provider Active Start: November 22, 2024 End: November 22, 2024 Dr. Usha Cueva MD Referring Provider Active Start: November 22, 2024 End: November 22, 2024 Team Status: Active Member Role/Relationship Status Dates Dr. Usha Cueva MD Family Provider Active Dr. Usha Cueva MD Primary Care Provider Active Team Status: Inactive Member Role/Relationship Status Dates Dr. Usha Cueva MD Primary Care Provider Active Start: November 21, 2024 End: November 21, 2024 Dr. Usha uCeva MD Attending Provider Active Start: November 21, 2024 End: November 21, 2024 Dr. Usha Cueva MD Referring Provider Active Start: November 21, 2024 End: November 21, 2024 Team Status: Inactive Member Role/Relationship Status Dates Dr. Usha Cueva MD Primary Care Provider Active Start: November 22, 2024 End: November 22, 2024 Dr. Usha Cueva MD Attending Provider Active Start: November 22, 2024 End: November 22, 2024 Dr. Usha Cueva MD Referring Provider Active Start: November 22, 2024 End: November 22, 2024 Team Status: Inactive Member Role/Relationship Status Dates Dr. Usha Cueva MD Primary Care Provider Active Start: December 10, 2024 End: December 10, 2024 Dr. Usha Cueva MD Referring Provider Active Start: December 10, 2024 End: December 10, 2024 Myah Ayala TAVERN KEEPER, TAVERN KEEPER-C Attending Provider Active Start: December 10, 2024 End: December 10, 2024 Reason for Visit (unrecogniz ed section and content) Specialty Diagnoses / Procedures Referred By Contac t Referred To Contact Diagnoses Malignant neoplasm of endometrium (HCC) Malignant neoplasm of endometrium (HCC) [C54.1] Procedures AK LAPS TOTAL HYSTERECT 250 GM/< W/RMVL TUBE/OVARY AK INJ RADIOACTIVE TRACER FOR ID OF SENTINEL NODE ROBOTIC ASSISTED TOTAL LAPAROSCOPIC HYSTERECTOMY, BILATERAL SALPINGO OOPHORECTOMY , BILATERAL PELVIC SENTINEL LYMPH NODE BIOPSY WITH ICG PROTOCOL LYMPHANGIOGRAPHY FOR IDENTIFICATION SENTINEL NODE Bryan Cervantes MD [address] [place] [address], [address] [place] [address] Located Within [facility] Main Or [address] [facility] [place] [address] Referral ID Status Reason Start Date Expiration Date Visits Re quested Visits Authorized [id number] 1 Reason Comments Post-op Visit Scheduled Active and Recently Administ ered Medications (unrecognized section and content) Medication Order 01/04/2023 01/05/2023 01/06/2023 acetaminophen (Tylenol) tablet 1,000 mg (COMPLETED) 1,000 mg, Oral, Once, On [place] 01/06/23 at 0545, For 1 dose, Preprocedure, Maximum dose of acetaminophen is 4000 mg from all sources in 24 hours. Do not administer if patient has taken tylenol <4 hours earlier. Do not give if contraindicated ie. patient has active liver disease or cirrhosis. 0546 (Given - Provid er: Madison Enrique RN) ceFAZolin in dextrose 4% (Ancef) IVPB 2,000 mg (COMPLETED) 2,000 mg, IntraVENous, Administer over 30 Minutes, Certifed Refrigeration Operator to O.R., On [place] 01/06/23 at 0545, For 1 dose, Preprocedure, Administer within 1 hour prior to incision. premix bag, Suspected Indication (Select all that apply): Surgical Prophylaxis 07 (Given - Provid er: DEE Blum CRNA)08 (Anesthesia Volume Adjustment - Provider: DEE Mchugh CRNA) famotidine (Pepcid) tablet 20 mg (COMPLETED) 20 mg, Oral, Once, On [place] 01/06/23 at 0545, For 1 dose, Preprocedure 0546 (Given - Provid er: Madison Enrique RN) gabapentin (Neurontin) capsule 100 mg (COMPLETED) 100 mg, Oral, Once, On [place] 01/06/23 at 0545, For 1 dose, Preprocedure, For Age >69 or Low GFR. 0546 (Given - Provid er: Madison Enrique RN) sodium chloride 0.9% (NS) flush 10 mL 10 mL, IntraVENous, Every 12 hours scheduled (2 times per day), First dose on [place] 01/06/23 at 0900, Recovery (only) 0900 (Canceled Entry - Provider: Automatic Discharge Provider - Comment: Automatically canceled at discontinue of medication order) sodium chloride 0.9% (NS) flush 5-40 mL 5-40 mL, IntraVENous, Every 12 hours, First dose on [place] 01/06/23 at 0545, Preprocedure, For Line Patency: Peripheral IV = 5 mL; Midline or Central Line = 10 mL/lumen. If following IV push medication, administer flush at same rate as the IV push. Flush volume is determined by type of infusion therapy being given. For non-viscous solutions use: Peripheral IV = 5 mL Midline or Central Line = 10 mL/lumen For viscous solutions (i.e. blood components, parenteral nutrition, contrast media, or after obtaining blood sample) use: Peripheral IV = 10 mL Midline or Central Line = 20 mL/lumen 0545 (Canceled Entry - Provider: Automatic Discharge Provider - Comment: Automatically canceled at discontinue of medication order) Continuous Medication Order 01/04/2023 01/05/2023 01/06/2023 lactated Ringer's (LR) infusion 50 mL/hr, IntraVENous, Continuous, Starting on [place] 01/06/23 at 0545, Preprocedure, Upon admission to sameday - please start iv if patient does not have iv access. Use 500ml NS for patients on dialysis. 0558 (New Bag - Prov ider: Madison Enrique RN)0651 (Continued by Anesthesia - Provider: DEE Blum CRNA)0813 (Stopped - Provider: DEE Blum CRNA) lactated ringers infusion 125 mL/hr, IntraVENous, Continuous, Starting on [place] 01/06/23 at 0830, Recovery (only) 0830 (Canceled Entry - Provider: Automatic Discharge Provider - Comment: Automatically canceled at discontinue of medication order) PRN Medication Order 01/04/2023 01/05/2023 01/06/2023 ALPRAZolam (Xanax) disintegrating tablet 0.25 mg 0.25 mg, Oral, PRN, anxiety, Starting on [place] 01/06/23 at 0534, For 1 dose, Preprocedure, Using dry hands, place tablet on top of tongue and allow to disintegrate. Administration with water is not necessary. diphenhydrAMINE (BENADryl) injection 12.5 mg 12.5 mg, IntraVENous, Once PRN, itching, Starting on [place] 01/06/23 at 0824, For 1 dose, Recovery (only) hydrALAZINE (Apresoline) injection 5 mg(Linked Group 1) 5 mg, IntraVENous, Every 15 min PRN, high blood pressure, for SBP greater than 160 mmHg for 2 consecutive measurements taken from different sites, Starting on [place] 01/06/23 at 0824, For 2 doses, Recovery (only), PRN for SBP > 160 for 2 consecutive measurements, and if one of the following conditions is met: 1) If IV labetolol is ineffective. 2) If HR is under 60. 3) If patient has heart block, COPD or asthma. If both labetalol and hydralazine ineffective, notify anesthesia provider. HYDROmorphone (Dilaudid) injection 0.25 mg 0.25 mg, IntraVENous, Every 5 min PRN, moderate pain (4-6), Starting on [place] 01/06/23 at 0824, For 4 doses, Recovery (only), Phase I and Phase II- Initial therapy for moderate pain (4-6). Restricted to a 90 minute time frame starting when the patient can verbally state their pain score. If after 2 doses the pain score does not decrease by more than one point, then call the provider. If oral meds are utilized, do not return to initial therapy medications. HYDROmorphone (Dilaudid) injection 0.5 mg 0.5 mg, IntraVENous, Every 5 min PRN, severe pain (7-10), Starting on [place] 01/06/23 at 0824, For 4 doses, Recovery (only), Phase I and Phase II- Initial therapy for severe pain (7-10). Restricted to a 90 minute time frame starting when the patient can verbally state their pain score. If after 2 doses the pain score does not decrease by more than one point, then call the provider. If oral meds are utilized, do not return to initial therapy medications. indocyanine green (IC-Green) injection (CANCELED) As needed, Starting on [place] 01/06/23 at 0708, Intraprocedure 0708 (Given - Provid er: Bryan Cervantes MD - Comment: 25 MG OF ICG MIXED WITH 20 ML OF STERILE WATER) labetalol (Normodyne,Trandate) injection 5 mg(Linked Group 1) 5 mg, IntraVENous, Every 10 min PRN, high blood pressure, for SBP greater than 160 mmHg for 2 consecutive measurements taken from different sites., Starting on [place] 01/06/23 at 0824, For 2 doses, Recovery (only), PRN for SBP >160 for 2 consecutive measurements, if HR is 60 or greater. If beta isrrael is contraindicated (HR less than 60, heart block, COPD or asthma) use hydralazine IV order. LORazepam (Ativan) injection 0.5 mg 0.5 mg, IntraVENous, Once PRN, for anxiety or muscle spasm., Starting on [place] 01/06/23 at 0824, For 1 dose, Recovery (only), For IV doses dilute dose with 1ml NS. meperidine (Demerol) injection 12.5 mg 12.5 mg, IntraVENous, Every 5 min PRN, shivering, Starting on [place] 01/06/23 at 0824, For 4 doses, Recovery (only), May give every 5 minutes to max of 50mg. ondansetron (Zofran) injection 4 mg 4 mg, IntraVENous, Once PRN, nausea, Starting on [place] 01/06/23 at 0824, For 1 dose, Recovery (only), Initial antiemetic therapy. oxyCODONE (Roxicodone) immediate release tablet 5 mg (COMPLETED) 5 mg, Oral, PRN, moderate pain (4-6), Starting on [place] 01/06/23 at 0824, For 1 dose, Recovery (only), PHASE II 910 (Given - Provid er: Brittany Sanchez RN) sodium chloride 0.9 % bolus 500 mL 500 mL, IntraVENous, at 1,000 mL/hr, Administer over 0.5 Hours, PRN, Anti-nausea, Starting on [place] 01/06/23 at 0824, Recovery (only), Indications: Anti-nausea sodium chloride 0.9 % infusion 5-250 mL/hr, IntraVENous, PRN, if patient receiving piggyback infusions and maintenance fluids are not ordered OR KVO fluids to protect IV site / prevent frequent line interruptions / long duration, Starting on [place] 01/06/23 at 0534, Preprocedure, For piggyback infusion, administer at same rate as piggyback for a total of 25 mL. Enter 25 mL into dose field and piggyback rate into rate field of order. If piggyback is infusing at a rate less than 100 mL/hr, enter 25 mL into dose field and 100 mL/hr into rate field of order. For KVO fluids, enter rate of 20 mL/hr or less into rate field of order. sodium chloride 0.9 % infusion 5-250 mL/hr, IntraVENous, PRN, if patient receiving piggyback infusions and maintenance fluids are not ordered OR KVO fluids to protect IV site / prevent frequent line interruptions/ long duration, Starting on [place] 01/06/23 at 0824, Recovery (only), For piggyback infusion, administer at same rate as piggyback for a total of 25 mL. Enter 25 mL into dose field and piggyback rate into rate field of order. If piggyback is infusing at a rate less than 100 mL/hr, enter 25 mL into dose field and 100 mL/hr into rate field of order. For KVO fluids, enter rate of 20 mL/hr or less into rate field of order. sodium chloride 0.9 % irrigation solution (CANCELED) As needed, Starting on [place] 01/06/23 at 0714, Intraprocedure 0714 (Given - Provid er: Bryan Cervantes MD - Comment: FOR SUCTION DRAWER IN DOBBY LOOM) sodium chloride 0.9% (NS) flush 10 mL 10 mL, IntraVENous, PRN, line care, Starting on [place] 01/06/23 at 0824, Recovery (only), After every IV line use sodium chloride 0.9% (NS) flush 5-40 mL 5-40 mL, IntraVENous, PRN, line care, After every IV line use, Starting on [place] 01/06/23 at 0534, Preprocedure, For Line Patency: Peripheral IV = 5 mL; Midline or Central Line = 10 mL/lumen. If following IV push medication, administer flush at same rate as the IV push. Flush volume is determined by type of infusion therapy being given. For non-viscous solutions use: Peripheral IV = 5 mL Midline or Central Line = 10 mL/lumen For viscous solutions (i.e. blood components, parenteral nutrition, contrast media, or after obtaining blood sample) use: Peripheral IV = 10 mL Midline or Central Line = 20 mL/lumen sterile water irrigation solution (CANCELED) As needed, Starting on [place] 01/06/23 at 0706, Intraprocedure 0706 (Given - Provid er: Bryan Cervantes MD - Comment: FOR INSTRUMENTS) Linked Groups Order Group 1: labetalol (Normodyne,Trandate) injection 5 mgJump to med 5 mg, IntraVENous, Every 10 min PRN, high blood pressure, for SBP greater than 160 mmHg for 2 consecutive measurements taken from different sites., Starting on [place] 01/06/23 at 0824, For 2 doses, Recovery (only)
PRN for SBP >160 for 2 consecutive measurements, if HR is 60 or greater. If beta isrrael is contraindicated (HR less than 60, heart block, COPD or asthma) use hydralazine IV order.
Or hydrALAZINE (Apresoline) injection 5 mgJump to med 5 mg, IntraVENous, Every 15 min PRN, high blood pressure, for SBP greater than 160 mmHg for 2 consecutive measurements taken from different sites, Starting on [place] 01/06/23 at 0824, For 2 doses, Recovery (only)
PRN for SBP > 160 for 2 consecutive measurements, and if one of the following conditions is met: 1) If IV labetolol is ineffective. 2) If HR is under 60. 3) If patient has heart block, COPD or asthma. If both labetalol and hydralazine ineffective, notify anesthesia provider.
INFORMATION SOURCE (unrecogn ized section and content) DATE CREATED AUTHOR 01/22/2023 [facility] DATE CREATED AUTHOR AUTHOR'S ORGANIZ ATION 01/04/2025 [facility] FOR RECORDS PERTAINING TO PATIENTS WHO ARE OR HAVE BEEN ENROLLED IN A CHEMICAL DEPENDENCY/SUBSTANCEABUSE PROGRAM, SOME INFORMATION MAY BE OMITTED. This clinical summary was aggregated from multiple sources. Caution should be exercised in using it in the provision of clinical care. This summary normalizes information from multiple sources, and as a consequence, information in this document may materially change the coding, format and clinical context of patient data. In addition, data may be omitted in some cases. CLINICAL DECISIONS SHOULD BE BASED ON THE PRIMARY CLINICAL RECORDS. [employer] provides no warranty or guarantee of the accuracy or completeness of information in this document.
== END | disposition home or self-care (01) ==
LOC: OPBI 10:20
PROVIDERS: PCP Internal Medicine; Referring Provider Nurse Practitioner Women's Health; Visit Provider Nurse Practitioner Women's Health
DX: Z12.31 Encounter for screening mammogram for malignant neoplasm of breast (principal)
CPT/HCPCS: 77063; 77067

== ENCOUNTER → 2025-02-25 | Outpatient (CLI) | payer BC, SELFPAY | END | disposition home or self-care (01) | LOC: BIMLAB 10:30 | PROVIDERS: PCP Internal Medicine; Referring Provider Internal Medicine; Visit Provider Internal Medicine | DX: E03.9 Hypothyroidism, unspecified (principal) | CPT/HCPCS: 36415; 84443 ==